=== PATIENT | male | born 1945 | race Caucasian/White ===

== ENCOUNTER → 2016-11-06 | Outpatient (CLI) | payer BC ==
[~2016-11-06] MED LIST: ASCO10003 PO; ASPI-461 PO; ATOR-24 PO; CELE1CAP30 PO; CHOL20009 PO; CHOL4POW4 PO; CHOL4POW6 PO; CLB/200 PO; CRD2 PO; CZR50 PO; GLC/500 PO; INSDGIPEN SC; INSU-698 SC; KRIL1000 PO; LOSA50TA6 PO; LPT/40 PO; METO50TA7 PO; MULTTAB58 PO; OMEG12006 PO; PRD20 PO; PRT40 PO; TPRSR/50 PO; VITA400C3 PO; VITA80005 PO; VTME400 PO; XRL20 PO
--- NOTE | 2016-11-06 18:32 | DIAGNOSTIC IMAGING REPORT ---
CHEST 2 VIEWS ROUTINE CLINICAL HISTORY: Cough, shortness of breath and chest pain. COMPARISON STUDY: Chest radiograph May 11, 2013 FINDINGS: No pneumothorax or pleural effusion is identified. Mild enlargement of the cardiac silhouette is noted. Diffuse interstitial thickening has developed. A few nodular opacities are noted within the lungs, most evident within the right lower lung. Opacity projects over the lower thoracic spinal lateral projection. IMPRESSION: Interval development of diffuse interstitial thickening with nodular opacities within the right lower lung. The findings are nonspecific but suggest interstitial lung disease. Less likely considerations include an atypical infectious or neoplastic process. A chest CT with contrast is recommended. Electronically signed by: Micky Perales M.D. 11/06/2016 6:31 PM Dictated Date/Time: 11/06/2016 6:27 PM
[2016-11-06 18:58] LABS: BASO % 0.3 %; BASO ABS # 0.05 K/uL (0-0.2); COMPLETE YES; EOS % 1.8 %; HEMATOCRIT 42.7 % (42-52); IG% 0.5 %; LYMPH % 14.9 %; LYMPH ABS # 2.45 K/uL (1.2-3.4); MEAN CELL VOLUME 92.8 fL (80-100); MEAN CORPUSCULAR HEMOGLOBIN 31.7 pg (25-34); MEAN CORPUSCULAR HGB CONC 34.2 g/dl (32-36); MEAN PLATELET VOLUME 9.6 fL (7.4-10.4); MONO % 9.8 %; NEUT % 72.7 %; PLATELET COUNT 422 K/uL (130-400); WHITE BLOOD COUNT 16.47 K/uL (4.8-10.8)
[2016-11-06 19:27] LABS: ALB/GLOB RATIO 0.5 (0.9-2); ALT/SGPT 87 U/L (12-78); AST/SGOT 57 U/L (15-37); BLOOD UREA NITROGEN 40 mg/dl (7-18); BUN/CREATININE RATIO 21.2 (10-20); CALCIUM 11.7 mg/dl (8.5-10.1); CARBON DIOXIDE 25 mmol/L (21-32); CHLORIDE 106 mmol/L (98-107); GLUCOSE 125 mg/dl (70-99); POTASSIUM 4.3 mmol/L (3.5-5.1); SODIUM 143 mmol/L (136-145)
[2016-11-06 19:38] LABS: ALKALINE PHOSPHATASE 142 U/L (45-117); CHOLESTEROL 110 mg/dl (0-200); CHOLESTEROL/HDL RATIO 3.9; HDL CHOLESTEROL 28 mg/dl; LDL CHOLESTEROL CALCULATED 46 mg/dl; TRIGLYCERIDES 179 mg/dl (0-150); VERY LOW DENSITY LIPOPROT CALC 36 mg/dl
[2016-11-07 06:27] LABS: ESTIMATED AVERAGE GLUCOSE 128 mg/dl; HA1C FLAG Normal (Normal)
== END | disposition home or self-care (01) ==
LOC: C.RAD 17:25
PROVIDERS: ATTEND Nurse Practitioner
DX: R53.83 Other fatigue (principal); E07.9 Disorder of thyroid, unspecified; E11.9 Type 2 diabetes mellitus without complications; R91.8 Other nonspecific abnormal finding of lung field

== ENCOUNTER 2016-11-07 15:11 | Inpatient (IN) | payer BC, OTHER ==
[~2016-11-07] VITALS: Ht 172.7 cm; Wt 92.9 kg
[~2016-11-07 15:11] MED LIST changes: -ATOR-24 PO; -CELE1CAP30 PO; -CHOL4POW4 PO; -CRD2 PO; -CZR50 PO; -INSDGIPEN SC; -INSU-698 SC; -KRIL1000 PO; -PRD20 PO; -PRT40 PO; -TPRSR/50 PO; -VITA400C3 PO; -XRL20 PO
[2016-11-07] MEDS ORDERED: SODIUM CHLORIDE 0.9% 1000ML 1,000 ML IV STA (15:28)
[2016-11-07] MEDS ORDERED: LEVAQUIN 750MG / 150ML D5W IV STA (15:28)
[2016-11-07 15:48] LABS: BASO % 0.3 %; BASO ABS # 0.05 K/uL (0-0.2); COMPLETE YES; EOS % 2.1 %; HEMATOCRIT 42.1 % (42-52); IG% 0.7 %; LYMPH % 12.2 %; LYMPH ABS # 1.78 K/uL (1.2-3.4); MEAN CELL VOLUME 93.6 fL (80-100); MEAN CORPUSCULAR HEMOGLOBIN 32.9 pg (25-34); MEAN CORPUSCULAR HGB CONC 35.2 g/dl (32-36); MEAN PLATELET VOLUME 9.4 fL (7.4-10.4); MONO % 8.1 %; NEUT % 76.6 %; PLATELET COUNT 391 K/uL (130-400); WHITE BLOOD COUNT 14.63 K/uL (4.8-10.8)
[2016-11-07 15:57] LABS: INR 1.2 (0.9-1.1); PARTIAL THROMBOPLASTIN RATIO 1.2; PROTHROMBIN TIME (PATIENT) 13.2 SECONDS (9.0-12.0)
--- NOTE | 2016-11-07 15:59 | DIAGNOSTIC IMAGING REPORT ---
SINGLE VIEW CHEST CLINICAL HISTORY: Weakness. Change in mental status. FINDINGS: An AP, portable, upright chest radiograph is compared to study dated 11/06/2016. The examination is degraded by portable technique and patient rotation. The heart is enlarged and there is atherosclerotic calcification of the thoracic and. There is pulmonary vascular congestion. There are bilateral airspace opacities, most confluent at the right lung base. No large pleural effusion or pneumothorax is seen. The skeletal structures are osteopenic. There are healed left-sided rib fractures. Surgical anchors are noted in the left humeral head. IMPRESSION: 1. Cardiomegaly with evidence of congestive failure. 2. There are bilateral airspace opacities, most confluent at the right lung base. This could represent interstitial edema. Correlate clinically for evidence of a superimposed infectious or inflammatory pneumonitis. Electronically signed by: Ion Chauhan M.D. 11/07/2016 3:57 PM Dictated Date/Time: 11/07/2016 3:51 PM
[2016-11-07] MEDS ORDERED: HEPARIN SOD 5000 UNIT/0.5 ML CARP ONE (16:14)
[2016-11-07] MEDS ORDERED: HEPARIN 25000 UNIT/500 ML D5W ONE (16:15)
[2016-11-07 16:20] LABS: ALT/SGPT 93 U/L (12-78); AST/SGOT 53 U/L (15-37); BLOOD UREA NITROGEN 39 mg/dl (7-18); BUN/CREATININE RATIO 28.1 (10-20); CALCIUM 11.7 mg/dl (8.5-10.1); CARBON DIOXIDE 23 mmol/L (21-32); CHLORIDE 109 mmol/L (98-107); GLUCOSE 148 mg/dl (70-99); MAGNESIUM 1.5 mg/dl (1.8-2.4); POTASSIUM 4.4 mmol/L (3.5-5.1); SODIUM 142 mmol/L (136-145)
[2016-11-07 16:23] LABS: ALKALINE PHOSPHATASE 132 U/L (45-117); CKMB/CK RATIO 2.8 (0-3.0)
[2016-11-07] MEDS ORDERED: ATOR-24 PO (16:32)
[2016-11-07] MEDS ORDERED: CELE1CAP30 PO (16:32)
[2016-11-07] MEDS ORDERED: CZR50 PO (16:32)
[2016-11-07] MEDS ORDERED: TPRSR/50 PO (16:32)
[2016-11-07] MEDS ORDERED: CRD2 PO (16:32)
--- NOTE | 2016-11-07 16:33 | History and Physical ---
History & Physical Date & Time of Service: Nov 07, 2016 at 16:08 Chief Complaint: Breathing Problems:Doc Sent To Er Primary Care Physician: Chanelle Gomez C.R.N.P. History of Present Illness Source: patient, family, clinic records, hospital records This patient is a pleasant 71-year-old male that presents the emergency department complaining of a productive cough, shortness of breath and weakness that has been going on for approximately 1 week. The patient contact his primary care physician yesterday. Chest x-ray and blood work were ordered. The patient was called today and told that his blood work was abnormal in addition to his chest x-ray. They advised he come to the emergency department for evaluation. The patient denies any fever or chills. He reports eating and drinking normally over the last several days, however his family says that he does not stay hydrated with water. The patient does have a fairly heavy intake of coffee and alcohol. He denies any nausea or vomiting. No changes in bowel habit. No abdominal pain. The patient did receive a flu and pneumonia vaccine this year Emergency Department workup is still pending. Upon review of clinic records, the patient's creatinine is significantly elevated yesterday at 1.9. His baseline appears to be around 0.9. Elevated BUN is 40. Leukocytosis noted at 14,000. Chest x-ray showed a possible neoplastic versus infiltrative process of the right base. The patient does have a remote history of smoking cigarettes , however he quit 30 years ago. He does still chew tobacco. Past Medical/Surgical History Medical Problems: (1) Arthritis Status: Chronic (2) Diabetes Status: Chronic (3) Heart disease Status: Chronic (4) High cholesterol Status: Chronic (5) Hypertension Status: Chronic (6) Myocardial infarction Status: Resolved and. [place] in 1996 Surgical Problems: (1) S/P shoulder surgery Status: Resolved EtOH abuse Thyroid disorder BPH Family History Cancer Diabetes mellitus Heart disease Hypertension Social History Smoking Status: Former Smoker Smokeless Tobacco Use: Yes Marital Status: Housing status: lives with significant other Occupational Status: retired Multi-Drug Resistant Organisms History of MDRO: No Allergies Coded Allergies: No Known Allergies (Verified , 07/12/15) Home Medications Scheduled Ascorbic Acid (Vitamin C), 1,000 MG PO QAM Aspirin (Aspirin), 81 MG PO QAM Atorvastatin (Lipitor), 40 MG PO QAM Celecoxib (Celecoxib), 200 MG PO QAM Cholecalciferol (Vitamin D), 2,000 INTER.UNIT PO QAM Cholestyramine (Cholestyramine), 4 GM PO QPM Doxazosin Mesylate (Doxazosin Mesylate), 2 MG PO QAM Krill Oil (Krill Oil), 1 CAP PO QAM Losartan Potassium (Losartan Potassium), 50 MG PO QAM Metformin Hcl (Glucophage), 500 MG PO QAM Metoprolol Succinate (Metoprolol Succinate ER), 50 MG PO QAM Multiple Vitamin (Multivitamin), 1 TAB PO QAM Vitamin A (Vitamin A), 8,000 INTER.UNIT PO QAM Vitamin E (Vitamin E 400 Iu), 400 INTER.UNIT PO QAM Review of Systems 10 system review performed and negative unless noted in HPI or below Physical Exam Vital Signs Date Time Temp Pulse Resp B/P Pulse Ox O2 Delivery O2 Flow Rate FiO2 11/07/16 15:38 78 Room Air 11/07/16 15:15 36.5 97 18 107/65 97 Room Air GENERAL: 71-year-old male, appears older than stated age, in moderate respiratory distress, SKIN: The skin was without rashes, warm and dry HEAD: Normocephalic atraumatic. MOUTH: Mucous membranes dry NECK: Supple without nuchal rigidity. No lymphadenopathy. No JVD. HEART: Irregularly irregular. No murmurs or rubs. LUNGS: Crackles at the bases and right mid lung. No wheezing. Positive tachypnea. Saturating at 87% on 4 L of oxygen per nasal cannula. ABDOMEN: Positive bowel sounds x 4.Soft, nontender, without organomegaly. No guarding or rebound tenderness. MUSCULOSKELETAL: No muscle atrophy, erythema, or edema noted. . No tenderness to palpation. Strength 5/5 throughout. NEURO: Patient was alert and oriented to person place and time. No focal neurological deficits. Diagnostics Laboratory Results Results Past 24 Hours Test 11/07/16 15:28 11/07/16 15:40 Range/Units Creatine Kinase MB Ratio 0-3.0 White Blood Count 14.63 4.8-10.8 K/uL Red Blood Count 4.50 4.7-6.1 M/uL Hemoglobin 14.8 14.0-18.0 g/dL Hematocrit 42.1 42-52 % Mean Corpuscular Volume 93.6 80-100 fL Mean Corpuscular Hemoglobin 32.9 25-34 pg Mean Corpuscular Hemoglobin Concent 35.2 32-36 g/dl Platelet Count 391 130-400 K/uL Mean Platelet Volume 9.4 7.4-10.4 fL Neutrophils (%) (Auto) 76.6 % Lymphocytes (%) (Auto) 12.2 % Monocytes (%) (Auto) 8.1 % Eosinophils (%) (Auto) 2.1 % Basophils (%) (Auto) 0.3 % Neutrophils # (Auto) 11.22 1.4-6.5 K/uL Lymphocytes # (Auto) 1.78 1.2-3.4 K/uL Monocytes # (Auto) 1.18 0.11-0.59 K/uL Eosinophils # (Auto) 0.30 0-0.5 K/uL Basophils # (Auto) 0.05 0-0.2 K/uL RDW Standard Deviation 43.9 36.4-46.3 fL RDW Coefficient of Variation 12.8 11.5-14.5 % Immature Granulocyte % (Auto) 0.7 % Immature Granulocyte # (Auto) 0.10 0.00-0.02 K/uL Prothrombin Time 13.2 9.0-12.0 SECONDS Prothromb Time International Ratio 1.2 0.9-1.1 Activated Partial Thromboplast Time 29.9 21.0-31.0 SECONDS Partial Thromboplastin Ratio 1.2 Diagnostic Radiology Patient Name: JOSE E SCHULTZ Unit Number: [id number] Dictated: 11/06/161826 Transcribed: 11/06/161826 Printed Date/Time: [~ rep prt dt]/[~ rep prt tm] [~ rep ct labl] - [~ rep ct ivnm] [facility] [place] [place] [address] Dictated: 11/06/161826 Transcribed: 11/06/161826 Printed Date/Time: [~ rep prt dt]/[~ rep prt tm] [~ rep ct labl] - [~ rep ct ivnm] Patient: JOSE E SCHULTZ Address1: [address] [place] [address] Rec: [id number] Address2: Acct ID: [id number] [facility] Zip: [place] [address] Date: 1945 Sex: M Room/Bed: Ref Phy: Chanelle Gomez, C.R.N.P. SC: ANTOINE Att Phy: Chanelle Gomez, C.R.N.P. Report #: [id number] Rhonda Phy: Chanelle Gomez C.R.N.P. Test: CXR Admit Phy: Domestic Housekeeper: ABBIE Interpreting Phy: Micky Perales MD Diagnosis: R53.83 Ordering Phy: Chanelle Gomez.R.N.P. Service Date: 11/06/16 Admit Date: 11/06/16 MNE: [id number] CONF: DICTATED BY: Micky Perales MD]] CC: Chanelle Gomez C.R.NKamron Endcc: [~ rep ct add3]] CHEST 2 VIEWS ROUTINE CLINICAL HISTORY: Cough, shortness of breath and chest pain. COMPARISON STUDY: Chest radiograph May 11, 2013 FINDINGS: No pneumothorax or pleural effusion is identified. Mild enlargement of the cardiac silhouette is noted. Diffuse interstitial thickening has developed. A few nodular opacities are noted within the lungs, most evident within the right lower lung. Opacity projects over the lower thoracic spinal lateral projection. IMPRESSION: Interval development of diffuse interstitial thickening with nodular opacities within the right lower lung. The findings are nonspecific but suggest interstitial lung disease. Less likely considerations include an atypical infectious or neoplastic process. A chest CT with contrast is recommended. Electronically signed by: Micky Perales M.D. 11/06/2016 6:31 PM Dictated Date/Time: 11/06/2016 6:27 PM The status of this report is Signed. Draft = Not yet reviewed or approved by Radiologist. Signed = Reviewed and approved by Radiologist. <AttendingPhy>Chanelle Gomez C.R.N.P.</AttendingPhy> <FamilyPhy>Chanelle Gomez C.R.N.P.</FamilyPhy> <PrimaryPhy>Chanelle Gomez C.R.N.P.</ PrimaryPhy> <UnitNumber>[id number]</UnitNumber> <VisitNumber>[id number]</ VisitNumber> <PatientName>JOSE E SCHULTZ</PatientName> <DateOfBirth>1945</ DateOfBirth> <Location>ANTOINE</Location> <ServiceDate>11/06/16</ServiceDate> <MNE >ESINDI</MNE> <OrderingPhy>Chanelle GomezN.P.</OrderingPhy> < OrderingPhyMNE>f rep ord dr monae</OrderingPhyMNE> <DictatingPhyMNE>f rep dict dr monae</DictatingPhyMNE> <CCListMNE>f rep ct mnhoney</CCListMNE> <AdmittingPhyMNE>f pt admit dr monae</AdmittingPhyMNE> <AttendingPhyMNE>f pt attend dr monae</ AttendingPhyMNE> <ConsultingPhyMNE>f pt consult dr monae</ConsultingPhyMNE> <FamilyPhyMNE>f pt fam dr monae</FamilyPhyMNE> <OtherPhyMNE>f pt other dr monae</OtherPhyMNE> < PrimaryPhyMNE>f pt prim care dr monae</PrimaryPhyMNE> <ReferringPhyMNE>f pt referring dr monae</ReferringPhyMNE> EKG A fib with RVR T-wave inversions noted in the inferior and lateral leads 111 bpm Impression Assessment and Plan 71-year-old male presents emergency department with a productive cough, shortness of breath and weakness. Chest x-ray performed yesterday shows an infiltrative process of the right base-? Pneumonia versus a neoplastic process. Outpatient labs show acute renal failure. Patient also appears to be in A. fib, which is new Acute respiratory failure with hypoxia-? Pneumonia versus neoplastic process versus possible new PE -Admit to telemetry -NS @ 125 cc/hr -Ideally, would get CT with IV contrast-due to ARF this is not feasible. Will obtain a CT of the chest without contrast -VQ scan in the morning -Prophylactically start heparin drip in case this is a new pulmonary embolus -trend cardiac enzymes -continuous pulse ox -Levaquin 750 mg IV daily-pharm may adjust dose New onset A fib -I would suspect that his heart rate will continue to improve with IV hydration and O2. We'll hold off on any further treatment of the A. fib I will add metoprolol 5 mg IV q 6 hr prn for HR > 120 -heparin gtt as noted above CAD hx [place]-no anginal symptoms. T wave inversion new in lateral leads -continue statin, ASA, B amari, heparin gtt as noted above ARF-likely secondary to dehydration -IV fluids as noted above -Daily PRP -Hold metformin 500 mg daily -Hold losartan 50 mg daily -Hold daily Celebrex Hypertension-BP stable -Continue metoprolol XL 50 mg daily -Other meds as noted above Borderline diabetes -Metformin 500 mg daily on hold -Cover with insulin sliding scale for now -BSG's every 6 hours Heavy EtOH use -Librium 60 mg TID -Monitor for DTs -Ativan 1 mg every 4 hours as needed DVT prophylaxis -Heparin drip -TEDS, SCDs CODE STATUS -LEVEL I FULL CODE Level of Care Telemetry Resuscitation Status FULL RESUSCITATION VTE Prophylaxis Risk Level: Low Given or contraindicated: Other Anticoagulation, T.E.D. Stockings, SCD's Assessment and Plan Attending Addendum: I have seen and examined this patient, have directed their medical care, and agree with the H&P as noted above.
[2016-11-07] MEDS ORDERED: CHOL4POW4 PO (16:38)
[2016-11-07] MEDS ORDERED: KRIL1000 PO (16:38)
[2016-11-07] MEDS ORDERED: VITA400C3 PO (16:39)
[2016-11-07] MEDS ORDERED: METOPROLOL TARTRATE 1 MG/ML VIAL IV PRN (16:45)
[2016-11-07] MEDS ORDERED: ACETAMINOPHEN 325 MG TAB PO PRN (16:45)
[2016-11-07] MEDS ORDERED: ONDANSETRON INJ 2 MG/ML 2 ML VIAL IV PRN (16:45)
[2016-11-07] MEDS ORDERED: ALUMINUM/MAGNESIUM/SIMETH (MAALOX MAX) 30 ML UDC PO PRN (16:45)
[2016-11-07] MEDS ORDERED: MAGNESIUM HYDROXIDE SUSP 30 ML UDC PO PRN (16:45)
[2016-11-07] MEDS ORDERED: POLYETHYLENE (MIRALAX) 17 GM PACK PO PRN (16:45)
[2016-11-07] MEDS ORDERED: NITROGLYCERIN 0.4 MG SL PER TAB CHARGE SL PRN (16:45)
[2016-11-07] MEDS ORDERED: LORAZEPAM 2 MG/ML 1 ML VIAL IV PRN (17:00)
[2016-11-07] MEDS ORDERED: GLUCAGON FOR INJ 1 MG VIAL SQ PRN (17:15)
[2016-11-07] MEDS ORDERED: GLUCOSE 10 TABS/TUBE PO PRN (17:15)
[2016-11-07] MEDS ORDERED: GLUCOSE 40% GEL 15 GM TUBE PO PRN (17:15)
[2016-11-07] MEDS ORDERED: DEXTROSE 50% 50 ML SYR IV PRN (17:15)
--- NOTE | 2016-11-07 17:38 | EMERGENCY ROOM VISIT NOTE ---
History Report prepared by Luis: Diana Monroe Under the Supervision of: Dr. Rubén Pelaez D.O. First contact with patient: 15:19 Chief Complaint: SHORTNESS OF BREATH Stated Complaint: BREATHING PROBLEMS:DOC SENT TO ER History of Present Illness The patient is a 71 year old male who presents to the Emergency Room with complaints of persistent shortness of breath that began one week ago. He currently rates his discomfort as a 5/10 in severity. The patient states for the past week he has had trouble getting around. He notes weakness and shortness of breath. The patient additionally associates a productive cough, noting that he has been bringing up yellow sputum. He states that yesterday he had a chest x-ray and blood work done. The patient states that he was called by his PCP instructing him to come to the emergency department for his elevated renal functions. Source of History: patient Onset: one week ago Position: other (global) Symptom Intensity: 5/10 Quality: other (shortness of breath) Timing: other (persistent) Associated Symptoms: + cough, + weakness Review of Systems See HPI for pertinent positives & negatives. A total of 10 systems reviewed and were otherwise negative. Past Medical & Surgical Medical Problems: (1) Acute respiratory failure with hypoxia (2) Arthritis (3) Diabetes (4) Heart disease (5) High cholesterol (6) Hypertension (7) Myocardial infarction Surgical Problems: (1) S/P shoulder surgery Family History Cancer Diabetes mellitus Heart disease Hypertension Social History Smoking Status: Former Smoker Alcohol Use: occasionally Marital Status: Housing Status: lives with significant other Occupation Status: retired Current/Historical Medications Scheduled Ascorbic Acid (Vitamin C), 1,000 MG PO QAM Aspirin (Aspirin), 81 MG PO QAM Atorvastatin (Lipitor), 40 MG PO QAM Celecoxib (Celecoxib), 200 MG PO QAM Cholecalciferol (Vitamin D), 2,000 INTER.UNIT PO QAM Cholestyramine (Cholestyramine), 4 GM PO QPM Doxazosin Mesylate (Doxazosin Mesylate), 2 MG PO QAM Krill Oil (Krill Oil), 1 CAP PO QAM Losartan Potassium (Losartan Potassium), 50 MG PO QAM Metformin Hcl (Glucophage), 500 MG PO QAM Metoprolol Succinate (Metoprolol Succinate ER), 50 MG PO QAM Multiple Vitamin (Multivitamin), 1 TAB PO QAM Vitamin A (Vitamin A), 8,000 INTER.UNIT PO QAM Vitamin E (Vitamin E 400 Iu), 400 INTER.UNIT PO QAM Allergies Coded Allergies: No Known Allergies (Verified , 07/12/15) Physical Exam Vital Signs Date Time Temp Pulse Resp B/P Pulse Ox O2 Delivery O2 Flow Rate FiO2 11/07/16 16:28 94 20 98/64 91 Mask 4.0 11/07/16 16:10 96 11/07/16 15:40 88 Nasal Cannula 5.0 11/07/16 15:38 78 Room Air 11/07/16 15:15 36.5 97 18 107/65 97 Room Air Physical Exam CONSTITUTIONAL/VITAL SIGNS: Reviewed / noted above. GENERAL: Non-toxic in appearance. INTEGUMENTARY: Warm, dry, and [place]. HEAD: Normocephalic. EYES: without scleral icterus or trauma. ENT/OROPHARYNX: clear and moist. LYMPHADENOPATHY/NECK: Is supple without lymphadenopathy or meningismus. RESPIRATORY: Tachypneic, moist sounding breath sounds, but symmetric. CARDIOVASCULAR: Regular rate and rhythm. GI/ABDOMEN: Soft and nontender. No organomegaly or pulsatile mass. No rebound or guarding. Normal bowel sounds. EXTREMITIES: Warm and well perfused. BACK: No CVA tenderness. NEUROLOGICAL: Intact without focal deficits. PSYCHIATRIC: normal affect. MUSCULOSKELETAL: Normally developed with good muscle tone. Medical Decision & Procedures ER Provider Diagnostic Interpretation: X ray results and stated below per my interpretation and radiology interpretation. SINGLE VIEW CHEST CLINICAL HISTORY: Weakness. Change in mental status. FINDINGS: An AP, portable, upright chest radiograph is compared to study dated 11/06/2016. The examination is degraded by portable technique and patient rotation. The heart is enlarged and there is atherosclerotic calcification of the thoracic and. There is pulmonary vascular congestion. There are bilateral airspace opacities, most confluent at the right lung base. No large pleural effusion or pneumothorax is seen. The skeletal structures are osteopenic. There are healed left-sided rib fractures. Surgical anchors are noted in the left humeral head. IMPRESSION: 1. Cardiomegaly with evidence of congestive failure. 2. There are bilateral airspace opacities, most confluent at the right lung base. This could represent interstitial edema. Correlate clinically for evidence of a superimposed infectious or inflammatory pneumonitis. Electronically signed by: Ion Chauhan M.D. 11/07/2016 3:57 PM Dictated Date/Time: 11/07/2016 3:51 PM Laboratory Results 11/07/16 15:40 Red Blood Count 4.50, Mean Corpuscular Volume 93.6, Mean Corpuscular Hemoglobin 32.9, Mean Corpuscular Hemoglobin Concent 35.2, Mean Platelet Volume 9.4, Neutrophils (%) (Auto) 76.6, Lymphocytes (%) (Auto) 12.2, Monocytes (%) (Auto) 8.1, Eosinophils (%) (Auto) 2.1, Basophils (%) (Auto) 0.3, Neutrophils # (Auto) 11.22, Lymphocytes # (Auto) 1.78, Monocytes # (Auto) 1.18, Eosinophils # (Auto) 0.30, Basophils # (Auto) 0.05 11/07/16 15:40 Test 11/07/16 15:40 White Blood Count 14.63 K/uL (4.8-10.8) Red Blood Count 4.50 M/uL (4.7-6.1) Hemoglobin 14.8 g/dL (14.0-18.0) Hematocrit 42.1 % (42-52) Mean Corpuscular Volume 93.6 fL (80-100) Mean Corpuscular Hemoglobin 32.9 pg (25-34) Mean Corpuscular Hemoglobin Concent 35.2 g/dl (32-36) Platelet Count 391 K/uL (130-400) Mean Platelet Volume 9.4 fL (7.4-10.4) Neutrophils (%) (Auto) 76.6 % Lymphocytes (%) (Auto) 12.2 % Monocytes (%) (Auto) 8.1 % Eosinophils (%) (Auto) 2.1 % Basophils (%) (Auto) 0.3 % Neutrophils # (Auto) 11.22 K/uL (1.4-6.5) Lymphocytes # (Auto) 1.78 K/uL (1.2-3.4) Monocytes # (Auto) 1.18 K/uL (0.11-0.59) Eosinophils # (Auto) 0.30 K/uL (0-0.5) Basophils # (Auto) 0.05 K/uL (0-0.2) RDW Standard Deviation 43.9 fL (36.4-46.3) RDW Coefficient of Variation 12.8 % (11.5-14.5) Immature Granulocyte % (Auto) 0.7 % Immature Granulocyte # (Auto) 0.10 K/uL (0.00-0.02) Prothrombin Time 13.2 SECONDS (9.0-12.0) Prothromb Time International Ratio 1.2 (0.9-1.1) Activated Partial Thromboplast Time 29.9 SECONDS (21.0-31.0) Partial Thromboplastin Ratio 1.2 Anion Gap 10.0 mmol/L (3-11) Est Creatinine Clear Calc Drug Dose 52.9 ml/min Estimated GFR () 57.4 Estimated GFR (Non- 49.5 BUN/Creatinine Ratio 28.1 (10-20) Calcium Level 11.7 mg/dl (8.5-10.1) Magnesium Level 1.5 mg/dl (1.8-2.4) Total Bilirubin 0.4 mg/dl (0.2-1) Direct Bilirubin 0.1 mg/dl (0-0.2) Aspartate Amino Transf (AST/SGOT) 53 U/L (15-37) Alanine Aminotransferase (ALT/SGPT) 93 U/L (12-78) Alkaline Phosphatase 132 U/L (45-117) Total Creatine Kinase 64 U/L (39-308) Creatine Kinase MB 1.8 ng/ml (0.5-3.6) Creatine Kinase MB Ratio 2.8 (0-3.0) Troponin I < 0.015 ng/ml (0-0.045) Total Protein 7.7 gm/dl (6.4-8.2) Albumin 2.5 gm/dl (3.4-5.0) Lipase 173 U/L (73-393) Laboratory results as stated above per my review. Medications Administered Medications (Trade) Dose Ordered Sig/Raudel Route Start Time Stop Time Status Last Admin Dose Admin Sodium Chloride (Nss 1000ml) 1,000 ml @ 999 mls/hr Q1H1M STAT IV 11/07/16 15:28 11/07/16 16:28 DC 11/07/16 15:45 999 MLS/HR Levofloxacin (Levaquin / D5W) 750 mg NOW STAT IV 11/07/16 15:28 11/07/16 15:30 DC 11/07/16 16:06 750 MG Heparin Sodium (Porcine) (Heparin Sq 5000 Unit/0.5ml) 10,000 unit STK-MED ONCE .ROUTE 11/07/16 16:14 11/07/16 16:16 DC 11/07/16 16:32 6,000 UNIT Heparin Sodium/ Dextrose (Heparin 25,000 Unit/500ml D5W) 25,000 unit STK-MED ONCE .ROUTE 11/07/16 16:15 11/07/16 16:16 DC 11/07/16 16:15 25,000 UNIT ECG Indication: SOB/dyspnea Rate (beats per minute): 111 Rhythm: atrial fibrillation Findings: no acute ischemic change, no ectopy ED Course 1521: Previous medical records were reviewed. The patient was evaluated in room C10. A complete history and physical examination was performed. I discussed the lab results and chest x-ray findings with him. I discussed the set treatment plan. He verbalized complete understanding and agreement. He will be evaluated for further treatment. 1528: Ordered Levofloxacin 750 mg IV, Sodium Chloride 1000 ml @ 999 mls/hr IV. 1536: I discussed the patients case with PREMA Denise. He is going to evaluate the patient for further treatment. 1548: I rediscussed the patients case with PREMA Denise. 1551: Ordered Heparin Sodium/Dextrose 1 ea NA. Medical Decision Differential includes acute coronary syndrome, myocardial infarction, CVA, TIA, anemia, infection, pneumonia, UTI, pyelonephritis, poor nutrition, dehydration, electrolyte disturbance,hypoglycemia. This is a 71-year-old male who presents to the ED with a chief complaint of shortness of breath. He also reports a cough productive of a yellow sputum for the past week. The patient has been increasingly weak over the past week as well. He had outpatient blood work and a chest x-ray yesterday that suggested either an atypical pneumonia or a neoplastic process and a CT scan with IV contrast was recommended. His white blood cell count yesterday was 16.4. His BUN was 40 and his creatinine was 1.9. He also had some slight elevation of his liver function tests. The patient was documented as having saturations 97% on room air in triage but his room air saturations were 78% in the emergency department room. The patient was found to have atrial fibrillation at a rate of 110. This is new onset. He denies any history of such. His BUN is 39 and his creatinine is 1.4. Calcium was elevated 11.7. Troponin is negative. Chest x-ray reveals about the same as yesterday. The patient was started on IV heparin as well as IV Levaquin. He was given a liter of normal saline IV. I spoke with the hospitalist, who will see the patient for further inpatient care and evaluation. Consults Time Called: [phone] Consulting Physician: PREMA Denise Returned Call: [phone] I discussed the patients case with PREMA Denise. He is going to evaluate the patient for further treatment. Impression Primary Impression: Pneumonia Additional Impressions: New onset atrial fibrillation Hypoxia Critical Care I have personally 35 minutes of critical care time in the direct management of this patient. This includes bedside care, interpretation of diagnostic studies , and testing, discussion with consultants, patient, and family members, and other required patient management activities. Scribe Attestation The scribe's documentation has been prepared under my direction and personally reviewed by me in its entirety. I confirm that the note above accurately reflects all work, treatment, procedures, and medical decision making performed by me. Departure Information Dispostion Being Evaluated By Hospitalist Referrals Chanelle Gomez, C.R.N.P. (PCP) Problem Qualifiers
[2016-11-07 18:30] VITALS: BP 125/87; PULSE 88; TEMP 36.5; O2SAT 92; BMI 31.5
--- NOTE | 2016-11-07 18:31 | DIAGNOSTIC IMAGING REPORT ---
CT OF THE CHEST WITHOUT IV CONTRAST CLINICAL HISTORY: Abnormal chest x-ray. Bilateral airspace opacities. COMPARISON STUDY: Chest x-ray dated 11/07/2016 CT DOSE: 501.10 mGycm TECHNIQUE: CT of the thorax was performed from the thoracic inlet to the lung bases. Images are reviewed in the axial, sagittal, and coronal planes. IV contrast was not administered for this examination. FINDINGS: Thyroid: Imaged portions of the thyroid gland are normal in appearance. Thoracic aorta: The thoracic aorta is normal in course and caliber, noting standard 3 vessel arch anatomy. Heart: The heart is mildly enlarged. There are coronary artery calcifications present. Lungs and pleural spaces: There are extensive bilateral pulmonary airspace opacities with a lower lung zone and slight peripheral distribution. The findings could represent atypical edema, or an infectious/inflammatory process. There are several nodular opacities, the most prominent is located within the right upper lobe on image #[id number] measuring 1 cm. There is also a 7 mm lingular nodule as visualized in image #[id number]. There are no significant pleural effusions. Mediastinum: There is a 1 cm right paratracheal lymph node the upper limits of normal in size. There is a mildly enlarged. Tracheal lymph node measuring 11 mm in short axis. There is a mildly enlarged subcarinal lymph node measuring 13 mm. Leora: Mildly enlarged hilar lymph nodes are suspected although evaluation is limited given the noncontrast nature the study Axilla: Clear. Upper abdomen: Partially visualized upper abdominal viscera is within normal limits. Skeletal structures: There are no lytic or blastic osseous lesions. IMPRESSION: 1. Extensive mixed interstitial and groundglass pulmonary opacities. The appearance is nonspecific. An infectious/inflammatory process is favored over atypical edema. In addition there are scattered subcentimeter nodules. 2. Mildly enlarged mediastinal and hilar lymph nodes 3. Coronary artery calcifications 4. No significant pleural effusions Electronically signed by: John Katz M.D. 11/07/2016 6:29 PM Dictated Date/Time: 11/07/2016 6:23 PM
[2016-11-07 20:00] VITALS: O2SAT 92
[2016-11-07 20:20] LABS: INFLUENZA A PCR Neg for Influ A (NEG); INFLUENZA B PCR Neg for Influ B (NEG)
[2016-11-07] MEDS ORDERED: LEVOFLOXACIN CONSULT ACTIVE PRN (21:45)
--- NOTE | 2016-11-07 22:01 | DIAGNOSTIC IMAGING REPORT ---
NUCLEAR MEDICINE PULMONARY VENTILATION/PERFUSION SCAN CLINICAL HISTORY: Hypoxia and new onset atrial fibrillation. COMPARISON STUDY: Chest x-ray dated 11/07/2016, chest CT dated 11/07/2016 FINDINGS: The patient was ventilated utilizing 32.7 mCi of technetium 99m DTPA aerosol. The patient was perfused utilizing 6.4 mCi of technetium 99m MAA. The perfusion study is heterogeneous without evidence of large focal perfusion defect. Ventilation study is limited with central deposition of the aerosol. There is swallowed activity with gastric activity and esophageal activity. Given the limited aerosol study is difficult to interpret this examination. However I would place this study in the low probability of acute pulmonary embolus category (less than 10% probability) IMPRESSION: 1. Significantly limited aerosol study 2. Difficult study to interpret, but felt to be in the low probability category. Electronically signed by: John Kazt M.D. 11/07/2016 9:59 PM Dictated Date/Time: 11/07/2016 9:55 PM
--- NOTE | 2016-11-07 22:02 | DIAGNOSTIC IMAGING REPORT ---
ULTRASOUND VENOUS DOPPLER LWR EXT BILA CLINICAL HISTORY: Difficulty breathing. Possible pulmonary embolism. NEW ONSET ATRIAL FIBRILLATION COMPARISON STUDY: No previous studies for comparison. FINDINGS: Real-time and color flow Doppler imaging were performed. Flow was seen within the femoral, popliteal and calf veins with no intraluminal thrombus demonstrated. The saphenous vein is patent. IMPRESSION: No evidence of lower extremity DVT. Electronically signed by: John Katz M.D. 11/07/2016 10:00 PM Dictated Date/Time: 11/07/2016 9:59 PM
[2016-11-07] MEDS: CHLORDIAZEPOXIDE 25 MG CAP PO SCH (22:10)
[2016-11-07] MEDS: ALBUMIN HUMAN 25% 12.5 GM/50 ML VIAL IV SCH ×2 (22:11→22:26)
[2016-11-07] MEDS: INSULIN ASPART 100 UNITS/ML 3 ML PEN SC SCH (22:15)
[2016-11-07] MEDS: SODIUM CHLORIDE 0.9% 1000ML 1,000 ML IV SCH (22:38)
[2016-11-07 23:01] LABS: PARTIAL THROMBOPLASTIN RATIO 1.9
[2016-11-07 23:48] VITALS: BP 121/73; PULSE 85; TEMP 36.6; O2SAT 94
[2016-11-08] VITALS (15 sets, daily range): BP systolic 88–111; BP diastolic 49–72; PULSE 69–92; TEMP 36.4–36.8; O2SAT 88–95
[2016-11-08] MEDS ORDERED: FUROSEMIDE 40 MG/4 ML VIAL ONE (04:15)
[2016-11-08] MEDS ORDERED: FUROSEMIDE INJ 20 MG in SYRINGE 0 ML IV SCH (05:00)
[2016-11-08 05:40] LABS: URINE APPEARANCE CLEAR (CLEAR); URINE BILIRUBIN NEG (NEG); URINE COLOR YELLOW; URINE NITRITE NEG (NEG); URINE SPECIFIC GRAVITY 1.012 (1.000-1.030); UROBILINOGEN NEG (NEG); ZZUR CULT IF INDIC CLEAN CATCH NO
[2016-11-08 05:43] LABS: MANUAL MICROSCOPIC REQUIRED? NO; REVIEW REQ? NO
[2016-11-08 06:34] LABS: BASO % 0.4 %; BASO ABS # 0.05 K/uL (0-0.2); COMPLETE YES; EOS % 3.5 %; IG% 0.7 %; LYMPH ABS # 2.44 K/uL (1.2-3.4); MEAN CELL VOLUME 93.5 fL (80-100); MEAN CORPUSCULAR HEMOGLOBIN 31.8 pg (25-34); MEAN PLATELET VOLUME 9.6 fL (7.4-10.4); MONO % 8.5 %; NEUT % 68.9 %; PLATELET COUNT 376 K/uL (130-400); RED BLOOD COUNT 4.28 M/uL (4.7-6.1); WHITE BLOOD COUNT 13.55 K/uL (4.8-10.8)
[2016-11-08 06:44] LABS: PARTIAL THROMBOPLASTIN RATIO 1.4
[2016-11-08 07:11] LABS: BUN/CREATININE RATIO 29.9 (10-20); CALCIUM 10.9 mg/dl (8.5-10.1); MAGNESIUM 1.3 mg/dl (1.8-2.4)
[2016-11-08] MEDS: INSULIN ASPART 100 UNITS/ML 3 ML PEN SC SCH ×4 (07:54→21:27)
[2016-11-08] MEDS ORDERED: HEPARIN IV BOLUS 6,000 UNIT in SYRINGE 0 ML IV ONE (08:00)
[2016-11-08] MEDS: HEPARIN 25,000 UNIT/500ML D5W 500 ML IV PRN (08:47)
[2016-11-08] MEDS: SODIUM CHLORIDE 0.9% 1000ML 1,000 ML IV SCH (08:57)
[2016-11-08] MEDS: ATORVASTATIN 40 MG TAB PO SCH (08:58)
[2016-11-08] MEDS: ASPIRIN 81 MG ECTAB PO SCH (08:59)
[2016-11-08] MEDS: METOPROLOL SUCC 50MG EXT REL TAB PO SCH (08:59)
[2016-11-08] MEDS: CHLORDIAZEPOXIDE 25 MG CAP PO SCH (09:00)
[2016-11-08] MEDS: DOXAZosin MESYLATE TAB 2 MG TAB PO SCH (09:00)
[2016-11-08 09:22] LABS: VEN BLD GAS O2 SATURATION 77.6 %; VEN BLOOD GAS BASE EXCESS 2.6 mmol/L
[2016-11-08] MEDS: FoLIC ACID INJ 1 MG in SYRINGE 9.8 ML IV SCH (09:32)
[2016-11-08] MEDS: MAGNESIUM SULFATE 1GM / D5W 1 GM in PREMIXED IN D5W 100 ML IV SCH ×3 (09:32→14:27)
[2016-11-08 09:50] LABS: CKMB/CK RATIO 3.1 (0-3.0)
[2016-11-08] MEDS ORDERED: LORAZEPAM 1 MG TAB PO PRN (10:15)
--- NOTE | 2016-11-08 10:21 | DIAGNOSTIC IMAGING REPORT ---
SINGLE VIEW CHEST CLINICAL HISTORY: CHF. Dyspnea. FINDINGS: An AP, portable, upright chest radiograph is compared to chest x-ray and chest CT dated 11/07/2016. The examination is degraded by portable technique, apical lordotic positioning, and patient rotation. The heart is enlarged and there is atherosclerotic calcification of the thoracic aorta. There is pulmonary vascular congestion. Multifocal bilateral airspace opacities are again noted. This is most confluent at the right lung base. No large pleural effusion or pneumothorax is seen. The skeletal structures are osteopenic. There are healed left-sided rib fractures. Surgical anchors are noted in the left humeral head. IMPRESSION: 1. Cardiomegaly with evidence of congestive failure. 2. Unchanged appearance of diffuse bilateral airspace opacities, most confluent at the right lung base. Differential considerations remain pulmonary edema versus a superimposed infectious or inflammatory pneumonitis. Electronically signed by: Ion Cahuhan M.D. 11/08/2016 10:19 AM Dictated Date/Time: 11/08/2016 10:17 AM
[2016-11-08] MEDS ORDERED: PIPERACILL/TAZOBAC CONSULT ACTIVE PRN (10:45)
[2016-11-08] MEDS: THIAMINE HCL INJ 200 MG in SODIUM CHLORIDE 0.9% 50ML 50 ML IV SCH ×2 (10:48→21:26)
[2016-11-08] MEDS ORDERED: PIPERACILL/TAZOBAC IV 3.375 GM in DEXTROSE 5% 100ML IV ONE (11:00)
[2016-11-08] MEDS ORDERED: GABAPENTIN 600 MG TAB PO ONE (11:00)
--- NOTE | 2016-11-08 11:05 | Progress Note ---
Subjective Date of Service: Nov 08, 2016. Subjective Pt evaluation today including: conversation w/ patient, physical exam, chart review, lab review, review of studies (cxr, CT chest, EKG, dopplers, v/q ), conversation w/ retirement sales consultant (critical care, pulmonary ), review of inpatient medication list Pain: denies chest pain PO Intake: essentially npo Voiding: no voiding problems Overnight - continues with significant O2 requirement despite facemask O2. He is dyspneic at rest but not orthopneic. Denies fevers. Has been sick x 1 week only; denies chronic lung issues; no tobacco in 20 years. Smoked 20 years previously. Continues to chew tobacco. +etoh - 4 beers and 4 shots daily (minimum) - EVERY DAY. Denies h/o withdrawal or DTs. Denies h/o cirrhosis. Denies HIV risk factors, but does have tattoos. No recent travel, sick contacts, birds at his house, etc. Denies any recent vomiting or aspiration event. Problem List Medical Problems: (1) Hypoxia Status: Acute (2) New onset atrial fibrillation Status: Acute (3) Pneumonia Status: Acute Review of Systems Constitutional: + fatigue, No chills, No fever, No sweats Respiratory: + cough, + dyspnea at rest, No hemoptysis, No sputum Cardiac: No PND, No chest pain, No edema, No orthopnea Abdomen: No diarrhea, No nausea, No pain, No vomiting Musculoskeletal: No joint pain Objective Vital Signs Date Time Temp Pulse Resp B/P Pulse Ox O2 Delivery O2 Flow Rate FiO2 11/08/16 08:55 89 36 90/58 89 Nasal Cannula 6.0 11/08/16 07:58 36.4 84 23 95/50 92 Mask 8.0 11/08/16 04:00 Mask 6.0 11/08/16 03:35 36.8 86 38 94/49 95 Mask 6.0 11/08/16 00:01 94 Nasal Cannula 5.0 11/07/16 23:48 36.6 85 20 121/73 94 Nasal Cannula 5.0 11/07/16 20:00 92 Mask 7.0 11/07/16 18:30 36.5 88 20 125/87 92 Mask 7.0 11/07/16 17:41 90 20 97/71 90 Mask 4.0 1/20/17 16:28 94 20 98/64 91 Mask 4.0 11/07/16 16:10 96 11/07/16 15:40 88 Nasal Cannula 5.0 11/07/16 15:38 78 Room Air 11/07/16 15:15 36.5 97 18 107/65 97 Room Air Physical Exam General Appearance: + moderate distress (tachypneic, subtle accessory muscle use) ENT: + pertinent finding (MM dry, no thrush ) Neck: no JVD Respiratory/Chest: + respiratory distress, + decreased breath sounds, + accessory muscle use, + rales (fine, both bases - extending 1/[address] way up the back) , + wheezing (scant, end-exp) Cardiovascular: no gallop, no murmur, + irregularly irregular Abdomen: normal bowel sounds, non tender, soft, no organomegaly Extremities: no pedal edema Neurologic/Psychiatric: alert, oriented x 3, + pertinent finding (no tremors or signs of withdrawal) Skin: + pertinent finding (tattoos on arms) Laboratory Results Last 24 Hours Test 11/07/16 15:40 11/07/16 18:30 11/07/16 22:04 11/07/16 22:25 White Blood Count 14.63 K/uL Red Blood Count 4.50 M/uL Hemoglobin 14.8 g/dL Hematocrit 42.1 % Mean Corpuscular Volume 93.6 fL Mean Corpuscular Hemoglobin 32.9 pg Mean Corpuscular Hemoglobin Concent 35.2 g/dl Platelet Count 391 K/uL Mean Platelet Volume 9.4 fL Neutrophils (%) (Auto) 76.6 % Lymphocytes (%) (Auto) 12.2 % Monocytes (%) (Auto) 8.1 % Eosinophils (%) (Auto) 2.1 % Basophils (%) (Auto) 0.3 % Neutrophils # (Auto) 11.22 K/uL Lymphocytes # (Auto) 1.78 K/uL Monocytes # (Auto) 1.18 K/uL Eosinophils # (Auto) 0.30 K/uL Basophils # (Auto) 0.05 K/uL RDW Standard Deviation 43.9 fL RDW Coefficient of Variation 12.8 % Immature Granulocyte % (Auto) 0.7 % Immature Granulocyte # (Auto) 0.10 K/uL Prothrombin Time 13.2 SECONDS Prothromb Time International Ratio 1.2 Activated Partial Thromboplast Time 29.9 SECONDS 49.7 SECONDS Partial Thromboplastin Ratio 1.2 1.9 Sodium Level 142 mmol/L Potassium Level 4.4 mmol/L Chloride Level 109 mmol/L Carbon Dioxide Level 23 mmol/L Anion Gap 10.0 mmol/L Blood Urea Nitrogen 39 mg/dl Creatinine 1.40 mg/dl Est Creatinine Clear Calc Drug Dose 52.9 ml/min Estimated GFR () 57.4 Estimated GFR (Non- 49.5 BUN/Creatinine Ratio 28.1 Random Glucose 148 mg/dl Calcium Level 11.7 mg/dl Magnesium Level 1.5 mg/dl Total Bilirubin 0.4 mg/dl Direct Bilirubin 0.1 mg/dl Aspartate Amino Transf (AST/SGOT) 53 U/L Alanine Aminotransferase (ALT/SGPT) 93 U/L Alkaline Phosphatase 132 U/L Total Creatine Kinase 64 U/L Creatine Kinase MB 1.8 ng/ml Creatine Kinase MB Ratio 2.8 Troponin I < 0.015 ng/ml Total Protein 7.7 gm/dl Albumin 2.5 gm/dl Lipase 173 U/L Influenza Type A (RT-PCR) Neg for Influ A Influenza Type B (RT-PCR) Neg for Influ B Bedside Glucose 115 mg/dl Test 11/08/16 04:54 11/08/16 05:50 11/08/16 07:05 11/08/16 09:06 Urine Color YELLOW Urine Appearance CLEAR Urine pH 5.0 Urine Specific Gilby 1.012 Urine Protein NEG Urine Glucose (UA) NEG Urine Ketones NEG Urine Occult Blood NEG Urine Nitrite NEG Urine Bilirubin NEG Urine Urobilinogen NEG Urine Leukocyte Esterase NEG Urine WBC (Auto) 1-5 /hpf Urine RBC (Auto) 0-4 /hpf Urine Hyaline Casts (Auto) 1-5 /lpf Urine Epithelial Cells (Auto) 5-10 /lpf Urine Bacteria (Auto) NEG White Blood Count 13.55 K/uL Red Blood Count 4.28 M/uL Hemoglobin 13.6 g/dL Hematocrit 40.0 % Mean Corpuscular Volume 93.5 fL Mean Corpuscular Hemoglobin 31.8 pg Mean Corpuscular Hemoglobin Concent 34.0 g/dl Platelet Count 376 K/uL Mean Platelet Volume 9.6 fL Neutrophils (%) (Auto) 68.9 % Lymphocytes (%) (Auto) 18.0 % Monocytes (%) (Auto) 8.5 % Eosinophils (%) (Auto) 3.5 % Basophils (%) (Auto) 0.4 % Neutrophils # (Auto) 9.34 K/uL Lymphocytes # (Auto) 2.44 K/uL Monocytes # (Auto) 1.15 K/uL Eosinophils # (Auto) 0.48 K/uL Basophils # (Auto) 0.05 K/uL RDW Standard Deviation 43.3 fL RDW Coefficient of Variation 12.8 % Immature Granulocyte % (Auto) 0.7 % Immature Granulocyte # (Auto) 0.09 K/uL Activated Partial Thromboplast Time 35.2 SECONDS Partial Thromboplastin Ratio 1.4 Sodium Level 141 mmol/L Potassium Level 4.0 mmol/L Chloride Level 107 mmol/L Carbon Dioxide Level 23 mmol/L Anion Gap 11.0 mmol/L Blood Urea Nitrogen 30 mg/dl Creatinine 1.00 mg/dl Est Creatinine Clear Calc Drug Dose 73.5 ml/min Estimated GFR () 86.2 Estimated GFR (Non- 74.3 BUN/Creatinine Ratio 29.9 Random Glucose 96 mg/dl Calcium Level 10.9 mg/dl Magnesium Level 1.3 mg/dl Bedside Glucose 93 mg/dl Venous Blood pH 7.47 Venous Blood Partial Pressure CO2 36 mmHg Venous Blood Partial Pressure O2 41 mmHg Venous Blood HCO3 26 mmol/L Venous Blood Oxygen Saturation 77.6 % Venous Blood Base Excess 2.6 mmol/L Total Creatine Kinase 52 U/L Creatine Kinase MB 1.6 ng/ml Creatine Kinase MB Ratio 3.1 Troponin I < 0.015 ng/ml Assessment and Plan 71yo female with: 1. acute hypoxic respiratory failure - likely infectious, etiology uncertain. I cannot rule out element of CHF at this time (diuresed about 1000cc after lasix this AM). Could be early ARDS. Query whether he could have aspirated during a drinking binge. Flu PCR negative. Send HIV, mycoplasma titers, urine for legionella antigen. Consent (verbal) for HIV testing obtained from patient. Add zosyn to the levaquin. MRSA swab; if + then add vanco for coverage. Send sputum cx if able to produce sputum. Change facemask to High-flow NC. Consult pulmonary, Dr. Prajapati - care discussed thoroughly with him this AM. Consult critical care, Dr. Duran, and plan to transfer him to ICU due to high risk of needing intubation/mech vent. Pulmonary toilet. 2. ?acute CHF - echo ordered. Hold additional IVF. Hold additional lasix until echo, repeat labs, etc are complete and we can reassess clinically. 3. new-onset a. fib - remains on heparin drip (started yesterday at admission) . Rates controlled with BB. Low mag could be contributing. ECHO ordered. 4. abnormal LFTs - low albumin, mildly elevated INR, abnormal LFTs - all in the setting of chronic etoh suggest cirrhosis. Check HepB/C titers. Will ultimately need dedicated u/s of liver; defer for now. 5. suspected sepsis - 2nd to #1 - check lactate. Broaden antibiotics. Unfortunately no blood cultures were sent yesterday. I don't know if sending them today would be helpful. 6. acute kidney injury - improved this am. Likely 2nd to #1 + #5. Repeat BMP at 1330 to ensure stability of creatinine following lasix. 7. alcoholism - high risk of withdrawal. Start alcohol withdrawal protocol with gabapentin + ativan. Stop librium. Add thiamine 200mg IV q12h. Add folic acid 1mg IV daily. 8. hypomagnesemia - 2nd to #7 - 3 grams mag sulfate NOW over 6 hours. Repeat level later today. Certainly will contribute to a. fib. 9. h/o CAD - rechecked troponin this am and was negative. 10. h/o T2DM - BSG q6h. Novolog SSI for now. Likely will need lantus/levemir due to steroids. 11. DVT proph - heparin drip. 12. GI proph - PPI. 13. BPH - placing stein; won't be an issue. 14. ?thyroid disorder per records - TSH on 11/04/16 was normal. will update total time 60 minutes including speaking with consultants, increasing pulmonary support, orders, transfer to ICU, etc Continued [facility] stay due to: multiple IV medications needed, other (resp failure )
[2016-11-08] MEDS ORDERED: PANTOprazole SOD 40 MG TAB PO ONE (11:30)
[2016-11-08] MEDS: METHYLPREDNISOLONE IV 60 MG in SYRINGE 0 ML IV SCH ×2 (11:55→17:53)
[2016-11-08 14:57] LABS: PARTIAL THROMBOPLASTIN RATIO 2.7
[2016-11-08 15:04] LABS: BUN/CREATININE RATIO 30.9 (10-20); CALCIUM 10.8 mg/dl (8.5-10.1); CREATININE 0.94 mg/dl (0.60-1.40); POTASSIUM 4.6 mmol/L (3.5-5.1)
[2016-11-08 15:17] LABS: HEPATITIS B AB NEG
[2016-11-08] MEDS: LEVOFLOXACIN / D5W 750 MG in PREMIXED IN D5W 150 ML IV SCH (16:04)
[2016-11-08] MEDS: GABAPENTIN 100 MG CAP PO SCH ×2 (16:04→21:28)
--- NOTE | 2016-11-08 17:29 | Critical Care Consultation ---
Critical Care Consultation Date of Consultation: Nov 08, 2016. Attending Physician: Jose Melendez MD Reason for Consultation: Hypoxic respiratory failure possible ARDS History of Present Illness Patient is a 71-year-old male who presented to the emergency department with a complaint of cough and shortness of breath of abrupt onset. In the emergency department he received a chest x-ray which was concerning for an in full treated process of the right base versus a possible neoplastic process, he was admitted to the hospitalist service for further evaluation. Patient had increasing oxygen requirements and given that is on the chest x-ray there is a concern for ARDS for which we will consult at for further evaluation and management. Past Medical/Surgical History #1 coronary artery disease #2 history of congestive heart failure #3 diabetes mellitus type 2 #4 benign prostatic hypertrophy #5 dyslipidemia #6 smokeless tobacco abuse #7 daily alcohol use (4-6 beers in addition to 4-6 whiskey shots) history of withdrawal symptoms Family History Cancer Diabetes mellitus Heart disease Hypertension Social History Smoking Status: Former Smoker Smokeless Tobacco Use: Yes Marital Status: Housing Status: lives with significant other Occupation Status: retired Allergies Coded Allergies: No Known Allergies (Verified , 07/12/15) Home Medications Scheduled Ascorbic Acid (Vitamin C), 1,000 MG PO QAM Aspirin (Aspirin), 81 MG PO QAM Atorvastatin (Lipitor), 40 MG PO QAM Celecoxib (Celecoxib), 200 MG PO QAM Cholecalciferol (Vitamin D), 2,000 INTER.UNIT PO QAM Cholestyramine (Cholestyramine), 4 GM PO QPM Doxazosin Mesylate (Doxazosin Mesylate), 2 MG PO QAM Krill Oil (Krill Oil), 1 CAP PO QAM Losartan Potassium (Losartan Potassium), 50 MG PO QAM Metformin Hcl (Glucophage), 500 MG PO QAM Metoprolol Succinate (Metoprolol Succinate ER), 50 MG PO QAM Multiple Vitamin (Multivitamin), 1 TAB PO QAM Vitamin A (Vitamin A), 8,000 INTER.UNIT PO QAM Vitamin E (Vitamin E 400 Iu), 400 INTER.UNIT PO QAM Current Inpatient Medications Current Inpatient Medications Medications (Trade) Dose Ordered Sig/Raudel Route Start Time Stop Time Status Last Admin Dose Admin Levofloxacin/Prmx (Levaquin / D5W/ Premixed D5W) 150 ml @ 100 mls/hr Q24H IV 11/08/16 16:00 11/17/16 15:59 11/08/16 16:04 100 MLS/HR Metoprolol Tartrate (Lopressor Iv) 5 mg Q6 PRN IV 11/07/16 16:45 12/07/16 16:44 Acetaminophen (Tylenol Tab) 650 mg Q4H PRN PO 11/07/16 16:45 12/07/16 16:44 Al Hydrox/Mg Hydrox/Simethicone (Maalox Max Susp) 15 ml Q4H PRN PO 11/07/16 16:45 12/07/16 16:44 Magnesium Hydroxide (Milk Of Magnesia Susp) 30 ml Q12H PRN PO 11/07/16 16:45 12/07/16 16:44 Ondansetron HCl (Zofran Inj) 4 mg Q6H PRN IV 11/07/16 16:45 12/07/16 16:44 Nitroglycerin (Nitrostat Tab) 0.4 mg UD PRN SL 11/07/16 16:45 12/07/16 16:44 Polyethylene (Miralax Powder Packet) 17 gm DAILY PRN PO 11/07/16 16:45 12/07/16 16:44 Insulin Aspart (novoLOG ASPART) SLIDING SCALE G... ACHS SC 11/07/16 21:00 12/07/16 20:59 11/08/16 11:54 2 UNITS Aspirin (Ecotrin Tab) 81 mg QAM PO 11/08/16 09:00 12/08/16 08:59 11/08/16 08:59 81 MG Atorvastatin Calcium (Lipitor Tab) 40 mg QAM PO 11/08/16 09:00 12/08/16 08:59 11/08/16 08:58 40 MG Doxazosin Mesylate (Cardura Tab) 2 mg QAM PO 11/08/16 09:00 12/08/16 08:59 Metoprolol Succinate 50 mg 50 mg QAM PO 11/08/16 09:00 12/08/16 08:59 Heparin Sodium/ Dextrose (Heparin 25,000 Unit/500ml D5W) 500 ml @ 35 mls/hr [id number] PRN IV 11/07/16 17:00 12/07/16 16:59 11/08/16 08:47 35 MLS/HR Lorazepam (Ativan Inj) 1 mg Q4H PRN IV 11/07/16 17:00 12/07/16 16:59 Glucose (Glucose 40% Gel) 15-30 GRAMS 15 GRAMS... UD PRN PO 11/07/16 17:15 12/07/16 17:14 Glucose (Glucose Chew Tab) 4-8 Tablets 4 Tabl... UD PRN PO 11/07/16 17:15 12/07/16 17:14 Dextrose (Dextrose 50% 50ML Syringe) 25-50ML OF 50% DW IV FOR... UD PRN IV 11/07/16 17:15 12/07/16 17:14 Glucagon (Glucagon Inj) 1 mg UD PRN SQ 11/07/16 17:15 12/07/16 17:14 Levofloxacin 1 ea 1 ea UD PRN N/A 11/07/16 21:45 12/07/16 21:44 Thiamine HCl 200 mg/Sodium Chloride 52 ml @ 208 mls/hr BID IV 11/08/16 09:00 12/08/16 08:59 11/08/16 10:48 208 MLS/HR Folic Acid/Syringe (Folvite Inj/ Syringe) 10 ml @ 5 mls/min QAM IV 11/08/16 09:00 12/08/16 08:59 11/08/16 09:32 5 MLS/MIN Lorazepam 1 mg 1 mg ONE PRN PO 11/08/16 10:15 12/08/16 10:14 Piperacillin Sod/ Tazobactam Sod 3.375 gm/Dextrose 115 ml @ 28.75 mls/ hr Q8H IV 11/08/16 17:00 11/15/16 16:59 Methylprednisolone Sodium Succinate/ Syringe (Solu-Medrol IV/ Syringe) 0.96 ml @ 1.5 mls/min Q8H IV 11/08/16 11:00 12/08/16 10:29 11/08/16 11:55 1.5 MLS/MIN Gabapentin (Neurontin Cap) 100 mg Q6H PO 11/08/16 16:00 11/08/16 22:01 11/08/16 16:04 100 MG Gabapentin (Neurontin Tab) 600 mg DAILY PO 11/09/16 09:00 11/09/16 09:01 Gabapentin (Neurontin Cap) 400 mg DAILY PO 11/10/16 09:00 11/10/16 09:01 Gabapentin (Neurontin Cap) 200 mg DAILY PO 11/11/16 09:00 11/11/16 09:01 Piperacillin Sod/ Tazobactam Sod (Consult) 1 ea UD PRN N/A 11/08/16 10:45 12/08/16 10:44 Pantoprazole Sodium (Protonix Tab) 40 mg QAM PO 11/09/16 09:00 12/09/16 08:59 Review of Systems Patient denies chest pain, shortness of breath resolved with high flow nasal cannula. Physical Exam Date Time Temp Pulse Resp B/P Pulse Ox O2 Delivery O2 Flow Rate FiO2 11/08/16 16:00 High Flow Oxygen 45.0 70 11/08/16 16:00 36.8 89 19 95/60 95 High Flow Oxygen 45 11/08/16 12:38 36.8 92 30 92/62 93 High Flow Oxygen 50 11/08/16 12:00 93 High Flow Oxygen 45.0 70 11/08/16 10:59 92/62 11/08/16 08:55 89 36 90/58 89 Nasal Cannula 6.0 11/08/16 08:00 92 Mask 8.0 11/08/16 07:58 36.4 84 23 95/50 92 Mask 8.0 11/08/16 04:00 Mask 6.0 11/08/16 03:35 36.8 86 38 94/49 95 Mask 6.0 11/08/16 00:01 94 Nasal Cannula 5.0 11/07/16 23:48 36.6 85 20 121/73 94 Nasal Cannula 5.0 11/07/16 20:00 92 Mask 7.0 11/07/16 18:30 36.5 88 20 125/87 92 Mask 7.0 11/07/16 17:41 90 20 97/71 90 Mask 4.0 General Appearance: well-appearing, WD/WN, no apparent distress Head: normocephalic, atraumatic Eyes: PERRLA, no discharge ENT: normal mouth exam, normal throat exam Neck: normal range of motion, no tenderness, trachea midline Respiratory: rhonchi Cardiovasular: irregular rate Abdomen: non tender, normal bowel sounds, no rebound Genitourinary - Male: external genitalia normal (Peterson in place) Neuro: alert, oriented x 3, normal motor exam, normal sensation, normal gait Laboratory Results Last 24 Hours Test 11/07/16 18:30 11/07/16 22:04 11/07/16 22:25 11/08/16 04:54 Influenza Type A (RT-PCR) Neg for Influ A Influenza Type B (RT-PCR) Neg for Influ B Bedside Glucose 115 mg/dl Activated Partial Thromboplast Time 49.7 SECONDS Partial Thromboplastin Ratio 1.9 Urine Color YELLOW Urine Appearance CLEAR Urine pH 5.0 Urine Specific [place] 1.012 Urine Protein NEG Urine Glucose (UA) NEG Urine Ketones NEG Urine Occult Blood NEG Urine Nitrite NEG Urine Bilirubin NEG Urine Urobilinogen NEG Urine Leukocyte Esterase NEG Urine WBC (Auto) 1-5 /hpf Urine RBC (Auto) 0-4 /hpf Urine Hyaline Casts (Auto) 1-5 /lpf Urine Epithelial Cells (Auto) 5-10 /lpf Urine Bacteria (Auto) NEG Test 11/08/16 05:50 11/08/16 07:05 11/08/16 09:06 11/08/16 11:12 White Blood Count 13.55 K/uL Red Blood Count 4.28 M/uL Hemoglobin 13.6 g/dL Hematocrit 40.0 % Mean Corpuscular Volume 93.5 fL Mean Corpuscular Hemoglobin 31.8 pg Mean Corpuscular Hemoglobin Concent 34.0 g/dl Platelet Count 376 K/uL Mean Platelet Volume 9.6 fL Neutrophils (%) (Auto) 68.9 % Lymphocytes (%) (Auto) 18.0 % Monocytes (%) (Auto) 8.5 % Eosinophils (%) (Auto) 3.5 % Basophils (%) (Auto) 0.4 % Neutrophils # (Auto) 9.34 K/uL Lymphocytes # (Auto) 2.44 K/uL Monocytes # (Auto) 1.15 K/uL Eosinophils # (Auto) 0.48 K/uL Basophils # (Auto) 0.05 K/uL RDW Standard Deviation 43.3 fL RDW Coefficient of Variation 12.8 % Immature Granulocyte % (Auto) 0.7 % Immature Granulocyte # (Auto) 0.09 K/uL Activated Partial Thromboplast Time 35.2 SECONDS Partial Thromboplastin Ratio 1.4 Sodium Level 141 mmol/L Potassium Level 4.0 mmol/L Chloride Level 107 mmol/L Carbon Dioxide Level 23 mmol/L Anion Gap 11.0 mmol/L Blood Urea Nitrogen 30 mg/dl Creatinine 1.00 mg/dl Est Creatinine Clear Calc Drug Dose 73.5 ml/min Estimated GFR () 86.2 Estimated GFR (Non- 74.3 BUN/Creatinine Ratio 29.9 Random Glucose 96 mg/dl Calcium Level 10.9 mg/dl Magnesium Level 1.3 mg/dl Bedside Glucose 93 mg/dl Venous Blood pH 7.47 Venous Blood Partial Pressure CO2 36 mmHg Venous Blood Partial Pressure O2 41 mmHg Venous Blood HCO3 26 mmol/L Venous Blood Oxygen Saturation 77.6 % Venous Blood Base Excess 2.6 mmol/L Total Creatine Kinase 52 U/L Creatine Kinase MB 1.6 ng/ml Creatine Kinase MB Ratio 3.1 Troponin I < 0.015 ng/ml Test 11/08/16 11:28 11/08/16 14:11 11/08/16 16:48 Bedside Glucose 134 mg/dl Activated Partial Thromboplast Time 69.2 SECONDS Partial Thromboplastin Ratio 2.7 Sodium Level 139 mmol/L Potassium Level 4.6 mmol/L Chloride Level 104 mmol/L Carbon Dioxide Level 26 mmol/L Anion Gap 9.0 mmol/L Blood Urea Nitrogen 29 mg/dl Creatinine 0.94 mg/dl Est Creatinine Clear Calc Drug Dose 78.2 ml/min Estimated GFR () 92.9 Estimated GFR (Non- 80.1 BUN/Creatinine Ratio 30.9 Random Glucose 126 mg/dl Calcium Level 10.8 mg/dl Vitamin B12 Level 1631 pg/mL Hepatitis B Surface Antigen NEG Hepatitis B Surface Antibody NEG Hepatitis C Antibody NEG HIV (1&2) Ab and P24 Ag, 4th Gener NEG Assessment & Plan (1) Alcohol dependence, daily use (2) Acute respiratory failure with hypoxia (3) New onset atrial fibrillation (4) Diabetes (5) Arthritis (6) High cholesterol (7) Heart disease (8) Hypertension (9) Pneumonia Neuro: Daily alcohol use: On alcohol withdrawal protocol Getting fully casted, thiamine, gabapentin, Ativan No evidence of withdrawal during my evaluation the day Cardiovascular: New-onset atrial fibrillation: Could be secondary to hypoxia versus on-call use , less likely Optimize magnesium to level greater than 2 Echocardiogram report pending Rate controlled at the present time On metoprolol XL 50 mg May have component of volume overload, adequate diuresis today. Check brain atretic peptide Respiratory Acute hypoxic respiratory failure Numerous possible etiologies Reviewed lower extremity venous duplex which was negative, noncontrast CT scan of the chest reviewed, report from VQ scan reviewed. Community-acquired pneumonia considered, aspiration pneumonitis and aspiration pneumonia in differential. Viral pneumonia, sent second influenza, mycoplasma and legionella titers pending, HIV titers pending. HSV and differential however think low yield at this point, we'll not start acyclovir given poor renal function Inflammatory lung disease also in differential, if patient requires intubation we'll obtain bronchoscopy with evaluation for diffuse alveolar hemorrhage. Placed on steroids today. Continue high flow nasal cannula at this time. GI: Mild transaminitis, hepatitis panel negative, likely secondary to alcohol use Nutrition: Written for diet. Renal: Acute kidney injury: Creatinine downtrending from 1.4-0.94 Patient still getting considerable volume from IV antibiotics, and heparin Patient still globally negative and last 24 hours Hematology: Mild anemia On heparin infusion presumed for possible PE. While PE is in differential there is no appearance of consideration for submassive PE, troponins remain negative awaiting echo and brain atretic peptide Infectious disease: Meets criteria for community-acquired pneumonia Likely has structural lung disease, history of smoking no formal diagnosis of COPD, HIV negative On Zosyn and Levaquin and vancomycin, Patient artery on broad-spectrum antibiotics limited utility of blood cultures Urine largely unremarkable Will send sputum culture Endocrine: Blood sugars within adequate range Patient is a full code, patient's will be surrogate decision maker Patient is agreeable to blood transfusion, consent obtained Patient consented for central venous access, arterial line, endotracheal intubation, bronchoscopy, chest thoracostomy tube. I have personally spent 60 minutes of critical care time in the direct management of this patient. This is a life/limb threatening event. This includes time spent evaluating patient, direct bedside care, chart review, placing orders, interpretation of diagnostic studies, discussion with consultants, patient, and family members, as well as other required patient management activities. This time is exclusive of all separately billable procedures, and teaching time and separate from and in addition to any other critical care service time. Problem Qualifiers (1) Diabetes: Diabetes mellitus type: type 2 Diabetes mellitus complication status: without complication
[2016-11-08 17:38] LABS: ISTAT ALLEN TEST Pass; ISTAT ARTERIAL BLOOD GAS HCO3 22 meq/L (19-24); ISTAT ARTERIAL BLOOD GAS PCO2 34 mmHg (35-46); ISTAT ARTERIAL BLOOD GAS PO2 67 mmHg (80-95); ISTAT ARTERIAL BLOOD GAS pH 7.42 (7.35-7.45); ISTAT CARBON DIOXIDE 23 mEq/l (24-31); ISTAT DELIVERY SYSTEM Cannula; ISTAT SITE R Radial
[2016-11-08] MEDS: PIPERACILL/TAZOBAC IV 3.375 GM in DEXTROSE 5% 100ML 100 ML IV SCH (17:52)
[2016-11-08 18:31] LABS: INFLUENZA A PCR Neg for Influ A (NEG); INFLUENZA B PCR Neg for Influ B (NEG)
--- NOTE | 2016-11-08 22:41 | ECHOCARDIOGRAM REPORT ---
*NOTICE TO RECEIVING [employer] This information is strictly Confidential and protected under [place] law. [place] law prohibits you from making any further disclosure of this information unless further disclosure is expressly permitted by the written consent of the person to whom it pertains or is authorized by law. A general authorization for the release of medical or other information is not sufficient for this purpose. Hospital accepts no responsibility if the information is made available to any other person, INCLUDING THE PATIENT. Interpretation Summary * Name: JOSE E SCHULTZ Study Date: 11/08/2016 02:25 PM BP: 92/62 mmHg * Patient Location: [facility] HR: 89 * : 1945 (M/d/yyyy) Gender: Male Height: 68 in * Age: 71 yrs Ethnicity: CA Weight: 209 lb * Ordering Physician: Jose Melendez * Performed By: Jennifer Norton * * Reason For Study: A-FIB * BSA: 2.1 m2 * -- Conclusions -- * 1. Normal LV size. Mild concentric LVH. * 2. Normal LV systolic function. LVEF 65-70 %. No regional wall motion abnormalities. * 3. RV not well visualized, grossly normal size, mild RV dysfunction. * 4. Mild aortic valve sclerosis without stenosis. * 5. Oass-ck-zezeekll mitral regurgitation. * 6. Severe left atrial dilation. * 7. Normal estimated PA and RA pressures. * 8. No prior studies for comparison. Procedure Details * A complete two-dimensional transthoracic echocardiogram was performed (2D, M-mode, Doppler and color flow Doppler). Left Ventricle * The left ventricle is grossly normal size. * There is mild concentric left ventricular hypertrophy. * Ejection Fraction = 65-70%. * No regional wall motion abnormalities noted. Right Ventricle * The right ventricle is grossly normal size. * The right ventricle is not well visualized. * The right ventricular systolic function is mildly reduced. Atria * The left atrium is severely dilated. * The right atrium is moderately dilated. * No ASD detected; PFO is not assessed. Mitral Valve * The mitral valve is grossly normal. * There is mild to moderate mitral regurgitation. Tricuspid Valve * The tricuspid valve is not well visualized, but is grossly normal. * There is no tricuspid stenosis. * There is trace tricuspid regurgitation. * Estimated PASP 30-35 Aortic Valve * Aortic valve sclerosis mild, without significant aortic valvular stenosis. * No hemodynamically significant valvular aortic stenosis. * There is no significant aortic regurgitation. Pulmonic Valve * The pulmonary valve is inadequately visualized, but the Doppler data is adequate for interpretation. * There is no pulmonic valvular stenosis. * There is no pulmonic valvular regurgitation. Great Vessels * The aortic root and proximal ascending aorta are normal sized. Pericardium/Pleural * There is no pericardial effusion. Great Vessels * IVC less than 2.1 cm, less than 50% change with respiration. Estimated RA pressure 8 MMode 2D Measurements and Calculations IVSd 1.4 cm IVSs 2.4 cm LVIDd 3.8 cm LVIDs 2.2 cm LVPWd 1.4 cm LVPWs 1.4 cm IVS/LVPW 1.0 FS 41.9 % EDV(Teich) 60.8 ml ESV(Teich) 16.0 ml EF(Teich) 73.7 % EDV(cubed) 53.6 ml ESV(cubed) 10.5 ml EF(cubed) 80.4 % % IVS thick 69.9 % % LVPW thick 1.9 % LV mass(C)d 187.4 grams LV mass(C)dI 90.0 grams/m\S\2 LV mass(C)s 167.1 grams LV mass(C)sI 80.3 grams/m\S\2 SV(Teich) 44.8 ml SI(Teich) 21.5 ml/m\S\2 SV(cubed) 43.1 ml SI(cubed) 20.7 ml/m\S\2 ACS 1.2 cm LA dimension 5.3 cm asc Aorta Diam 3.5 cm LVOT diam 1.9 cm LVOT area 2.9 cm\S\2 LVAd ap4 28.9 cm\S\2 LVLd ap4 7.4 cm EDV(MOD-sp4) 94.3 ml EDV(sp4-el) 95.4 ml LVAs ap4 13.5 cm\S\2 LVLs ap4 5.8 cm ESV(MOD-sp4) 27.5 ml ESV(sp4-el) 26.8 ml EF(MOD-sp4) 70.8 % EF(sp4-el) 71.9 % LVAd ap2 29.7 cm\S\2 LVLd ap2 8.4 cm EDV(MOD-sp2) 86.6 ml EDV(sp2-el) 89.4 ml LVAs ap2 13.0 cm\S\2 LVLs ap2 5.9 cm ESV(MOD-sp2) 25.5 ml ESV(sp2-el) 24.2 ml EF(MOD-sp2) 70.6 % EF(sp2-el) 72.9 % LVLd %diff 11.4 % EDV(MOD-bp) 96.4 ml LVLs %diff 2.3 % ESV(MOD-bp) 26.6 ml EF(MOD-bp) 72.4 % SV(MOD-sp4) 66.8 ml SI(MOD-sp4) 32.1 ml/m\S\2 SV(MOD-sp2) 61.1 ml SI(MOD-sp2) 29.3 ml/m\S\2 SV(MOD-bp) 69.8 ml SI(MOD-bp) 33.5 ml/m\S\2 SV(sp4-el) 68.6 ml SI(sp4-el) 33.0 ml/m\S\2 SV(sp2-el) 65.2 ml SI(sp2-el) 31.3 ml/m\S\2 Doppler Measurements and Calculations MV E max agnes 116.5 cm/sec MV dec time 0.23 sec Ao V2 max 176.6 cm/sec Ao max PG 12.5 mmHg Ao max PG (full) 7.1 mmHg MAEGAN(V,A) 1.9 cm\S\2 MAEGAN(V,D) 1.9 cm\S\2 LV V1 max PG 5.4 mmHg LV V1 mean PG 2.3 mmHg LV V1 max 115.9 cm/sec LV V1 mean 68.1 cm/sec LV V1 VTI 25.2 cm MR max agnes 431.6 cm/sec MR max PG 74.6 mmHg MR mean agnes 358.2 cm/sec MR mean PG 56.8 mmHg MR VTI 121.0 cm SV(LVOT) 73.1 ml SI(LVOT) 35.1 ml/m\S\2 PA V2 max 84.7 cm/sec PA max PG 2.9 mmHg TR max agnes 256.6 cm/sec
[2016-11-09] VITALS (36 sets, daily range): BP systolic 82–125; BP diastolic 49–85; PULSE 69–94; TEMP 36.5–36.8; O2SAT 86–96
[2016-11-09] MEDS: HEPARIN 25,000 UNIT/500ML D5W 500 ML IV PRN ×2 (00:28→16:46)
[2016-11-09] MEDS: PIPERACILL/TAZOBAC IV 3.375 GM in DEXTROSE 5% 100ML 100 ML IV SCH ×3 (01:25→16:50)
[2016-11-09] MEDS: METHYLPREDNISOLONE IV 60 MG in SYRINGE 0 ML IV SCH (03:48)
[2016-11-09 05:54] LABS: BASO % 0.1 %; BASO ABS # 0.01 K/uL (0-0.2); COMPLETE YES; IG% 0.5 %; LYMPH % 11.5 %; LYMPH ABS # 1.73 K/uL (1.2-3.4); MEAN CELL VOLUME 92.9 fL (80-100); MEAN CORPUSCULAR HEMOGLOBIN 31.5 pg (25-34); MEAN CORPUSCULAR HGB CONC 33.9 g/dl (32-36); MEAN PLATELET VOLUME 9.5 fL (7.4-10.4); MONO % 4.1 %; NEUT % 83.8 %; PLATELET COUNT 339 K/uL (130-400); RED BLOOD COUNT 4.09 M/uL (4.7-6.1); WHITE BLOOD COUNT 15.06 K/uL (4.8-10.8)
[2016-11-09 06:16] LABS: ISTAT ALLEN TEST Pass; ISTAT ARTERIAL BLOOD GAS HCO3 26 meq/L (19-24); ISTAT ARTERIAL BLOOD GAS PCO2 38 mmHg (35-46); ISTAT ARTERIAL BLOOD GAS PO2 69 mmHg (80-95); ISTAT ARTERIAL BLOOD GAS pH 7.43 (7.35-7.45); ISTAT CARBON DIOXIDE 27 mEq/l (24-31); ISTAT DELIVERY SYSTEM Cannula; ISTAT SITE R Radial
[2016-11-09 06:35] LABS: BUN/CREATININE RATIO 25.2 (10-20); CALCIUM 10.2 mg/dl (8.5-10.1); CREATININE 0.94 mg/dl (0.60-1.40); MAGNESIUM 1.7 mg/dl (1.8-2.4); POTASSIUM 4.3 mmol/L (3.5-5.1)
[2016-11-09 06:38] LABS: ALB/GLOB RATIO 0.5 (0.9-2)
[2016-11-09] MEDS: PANTOprazole SOD 40 MG TAB PO SCH (07:48)
[2016-11-09] MEDS: DOXAZosin MESYLATE TAB 2 MG TAB PO SCH (07:48)
[2016-11-09] MEDS: ATORVASTATIN 40 MG TAB PO SCH (07:48)
[2016-11-09] MEDS: ASPIRIN 81 MG ECTAB PO SCH (07:48)
[2016-11-09] MEDS: METOPROLOL SUCC 50MG EXT REL TAB PO SCH (07:49)
[2016-11-09] MEDS: FoLIC ACID INJ 1 MG in SYRINGE 9.8 ML IV SCH (07:50)
[2016-11-09] MEDS: THIAMINE HCL INJ 200 MG in SODIUM CHLORIDE 0.9% 50ML 50 ML IV SCH ×2 (07:51→21:40)
[2016-11-09] MEDS: INSULIN ASPART 100 UNITS/ML 3 ML PEN SC SCH ×4 (08:27→21:38)
[2016-11-09] MEDS ORDERED: GABAPENTIN 600 MG TAB PO SCH (09:00)
--- NOTE | 2016-11-09 10:08 | Critical Care Progress Note ---
Critical Care Progress Note Date of Service Nov 09, 2016. ICU Day ICU Day Number: [address] Duran Subjective No major complaints, no chest pain persistent shortness of breath mild Objective General Appearance: well-appearing, WD/WN, no apparent distress Head: normocephalic, atraumatic Eyes: PERRLA, no discharge ENT: normal mouth exam, normal throat exam Neck: normal range of motion, no tenderness, trachea midline Respiratory: rhonchi Cardiovasular: irregular rate Abdomen: non tender, normal bowel sounds, no rebound Genitourinary - Male: external genitalia normal (Peterson in place) Neuro: alert, oriented x 3, normal motor exam, normal sensation Assessment & Plan (1) Alcohol dependence, daily use (2) Acute respiratory failure with hypoxia (3) New onset atrial fibrillation (4) Diabetes (5) Arthritis (6) High cholesterol (7) Heart disease (8) Hypertension (9) Pneumonia Neuro: Daily alcohol use: On alcohol withdrawal protocol Getting folate, thiamine, gabapentin, Ativan Cardiovascular: New-onset atrial fibrillation: Rate controlled Optimize magnesium to level greater than 2 Echocardiogram report reviewed, no evidence of valvular dysfunction On metoprolol XL 50 mg May have component of volume overload, adequate diuresis today. Check brain atretic peptide Respiratory Acute hypoxic respiratory failure Numerous possible etiologies Reviewed lower extremity venous duplex which was negative, noncontrast CT scan of the chest reviewed, report from V scan reviewed. Community-acquired pneumonia still most likely cause, awaiting sputum specimen Decreased steroids from Q8 dosing to twice a day dosing Continue high flow nasal cannula at this time. GI: Mild transaminitis, hepatitis panel negative, likely secondary to alcohol use Nutrition: Tolerating diet Renal: Acute kidney injury: Creatinine downtrending from 1.4-0.94 Patient still getting considerable volume from IV antibiotics, and heparin Gentle diuresis today maintain negative fluid balance Hematology: Mild anemia On heparin infusion presumed for possible PE. Echo reviewed, no strong indication of submassive PE, brain natruretic peptide can be elevated in the setting of cor pulmonale, patient does have severely dilated left atrium Infectious disease: Meets criteria for community-acquired pneumonia Likely has structural lung disease, history of smoking no formal diagnosis of COPD, HIV negative On Zosyn and Levaquin and vancomycin, Awaiting sputum culture, if continues to improve will likely descalate to oral regimen with coverage for typical community-acquired pathogens, atypicals and would forego MRSA coverage Endocrine: Blood sugars within adequate range Patient remains critically ill due to hypoxic respiratory failure. I have personally spent 45 minutes of critical care time in the direct management of this patient. This is a life/limb threatening event. This includes time spent evaluating patient, direct bedside care, chart review, placing orders, interpretation of diagnostic studies, discussion with consultants, patient, and family members, as well as other required patient management activities. This time is exclusive of all separately billable procedures, and teaching time and separate from and in addition to any other critical care service time. Data Medications: Current Inpatient Medications Medications (Trade) Dose Ordered Sig/Raudel Route Start Time Stop Time Status Last Admin Dose Admin Levofloxacin/Prmx (Levaquin / D5W/ Premixed D5W) 150 ml @ 100 mls/hr Q24H IV 11/08/16 16:00 11/17/16 15:59 11/08/16 16:04 100 MLS/HR Metoprolol Tartrate (Lopressor Iv) 5 mg Q6 PRN IV 11/07/16 16:45 12/07/16 16:44 Acetaminophen (Tylenol Tab) 650 mg Q4H PRN PO 11/07/16 16:45 12/07/16 16:44 Al Hydrox/Mg Hydrox/Simethicone (Maalox Max Susp) 15 ml Q4H PRN PO 11/07/16 16:45 12/07/16 16:44 Magnesium Hydroxide (Milk Of Magnesia Susp) 30 ml Q12H PRN PO 11/07/16 16:45 12/07/16 16:44 Ondansetron HCl (Zofran Inj) 4 mg Q6H PRN IV 11/07/16 16:45 12/07/16 16:44 Nitroglycerin (Nitrostat Tab) 0.4 mg UD PRN SL 11/07/16 16:45 12/07/16 16:44 Polyethylene (Miralax Powder Packet) 17 gm DAILY PRN PO 11/07/16 16:45 12/07/16 16:44 Insulin Aspart (novoLOG ASPART) SLIDING SCALE G... ACHS SC 11/07/16 21:00 12/07/16 20:59 11/09/16 08:27 5 UNITS Aspirin (Ecotrin Tab) 81 mg QAM PO 11/08/16 09:00 12/08/16 08:59 11/09/16 07:48 81 MG Atorvastatin Calcium (Lipitor Tab) 40 mg QAM PO 11/08/16 09:00 12/08/16 08:59 11/09/16 07:48 40 MG Doxazosin Mesylate (Cardura Tab) 2 mg QAM PO 11/08/16 09:00 12/08/16 08:59 11/09/16 07:48 2 MG Metoprolol Succinate 50 mg 50 mg QAM PO 11/08/16 09:00 12/08/16 08:59 11/09/16 07:49 50 MG Heparin Sodium/ Dextrose (Heparin 25,000 Unit/500ml D5W) 500 ml @ 32 mls/hr [id number] PRN IV 11/07/16 17:00 12/07/16 16:59 11/09/16 00:28 35 MLS/HR Lorazepam (Ativan Inj) 1 mg Q4H PRN IV 11/07/16 17:00 12/07/16 16:59 Glucose (Glucose 40% Gel) 15-30 GRAMS 15 GRAMS... UD PRN PO 11/07/16 17:15 12/07/16 17:14 Glucose (Glucose Chew Tab) 4-8 Tablets 4 Tabl... UD PRN PO 11/07/16 17:15 12/07/16 17:14 Dextrose (Dextrose 50% 50ML Syringe) 25-50ML OF 50% DW IV FOR... UD PRN IV 11/07/16 17:15 12/07/16 17:14 Glucagon (Glucagon Inj) 1 mg UD PRN SQ 11/07/16 17:15 12/07/16 17:14 Levofloxacin 1 ea 1 ea UD PRN N/A 11/07/16 21:45 12/07/16 21:44 Thiamine HCl 200 mg/Sodium Chloride 52 ml @ 208 mls/hr BID IV 11/08/16 09:00 12/08/16 08:59 11/09/16 07:51 208 MLS/HR Folic Acid/Syringe (Folvite Inj/ Syringe) 10 ml @ 5 mls/min QAM IV 11/08/16 09:00 12/08/16 08:59 11/09/16 07:50 5 MLS/MIN Lorazepam 1 mg 1 mg ONE PRN PO 11/08/16 10:15 12/08/16 10:14 Piperacillin Sod/ Tazobactam Sod 3.375 gm/Dextrose 115 ml @ 28.75 mls/ hr Q8H IV 11/08/16 17:00 11/15/16 16:59 11/09/16 07:50 28.75 MLS/HR Methylprednisolone Sodium Succinate/ Syringe (Solu-Medrol IV/ Syringe) 0.96 ml @ 1.5 mls/min Q8H IV 11/08/16 11:00 12/08/16 10:29 11/09/16 03:48 1.5 MLS/MIN Gabapentin (Neurontin Cap) 400 mg DAILY PO 11/10/16 09:00 11/10/16 09:01 Gabapentin (Neurontin Cap) 200 mg DAILY PO 11/11/16 09:00 11/11/16 09:01 Piperacillin Sod/ Tazobactam Sod (Consult) 1 ea UD PRN N/A 11/08/16 10:45 12/08/16 10:44 Pantoprazole Sodium (Protonix Tab) 40 mg QAM PO 11/09/16 09:00 12/09/16 08:59 11/09/16 07:48 40 MG I & O: 24-Hour Column 11/09/16 08:00 Intake Total 2855 ml Output Total 3825 ml Balance -970 ml Vital Signs: Date Time Temp Pulse Resp B/P Pulse Ox O2 Delivery O2 Flow Rate FiO2 11/09/16 07:45 92 High Flow Oxygen 45 11/09/16 05:58 36.5 81 33 106/69 94 High Flow Oxygen 45 11/09/16 04:58 72 24 111/72 91 High Flow Oxygen 45 11/09/16 04:33 92 High Flow Oxygen 45 11/09/16 03:58 76 27 100/63 92 High Flow Oxygen 45 11/09/16 02:58 74 31 104/66 92 High Flow Oxygen 45 11/09/16 01:58 36.5 84 24 100/70 96 High Flow Oxygen 45 11/09/16 00:58 75 35 125/72 88 High Flow Oxygen 45 11/09/16 00:36 92 High Flow Oxygen 45 11/09/16 00:05 82 20 115/69 92 High Flow Oxygen 45 11/09/16 00:00 84 34 115/69 93 High Flow Oxygen 45 11/08/16 22:58 69 31 111/72 95 High Flow Oxygen 45 11/08/16 21:58 36.8 75 29 98/56 88 High Flow Oxygen 45 11/08/16 20:58 73 22 90/61 93 High Flow Oxygen 45 11/08/16 20:20 92 High Flow Oxygen 45 11/08/16 19:58 36.5 74 28 93/63 91 High Flow Oxygen 45 11/08/16 18:28 82 20 88/62 92 High Flow Oxygen 45 11/08/16 16:00 High Flow Oxygen 45.0 70 11/08/16 16:00 36.8 89 19 95/60 95 High Flow Oxygen 45 11/08/16 12:38 36.8 92 30 92/62 93 High Flow Oxygen 50 11/08/16 12:00 93 High Flow Oxygen 45.0 70 11/08/16 10:59 92/62 Laboratory Results: Last 24 Hours Test 11/08/16 11:12 11/08/16 11:28 11/08/16 14:11 11/08/16 16:30 Bedside Glucose 134 mg/dl Activated Partial Thromboplast Time 69.2 SECONDS Partial Thromboplastin Ratio 2.7 Sodium Level 139 mmol/L Potassium Level 4.6 mmol/L Chloride Level 104 mmol/L Carbon Dioxide Level 26 mmol/L Anion Gap 9.0 mmol/L Blood Urea Nitrogen 29 mg/dl Creatinine 0.94 mg/dl Est Creatinine Clear Calc Drug Dose 78.2 ml/min Estimated GFR () 92.9 Estimated GFR (Non- 80.1 BUN/Creatinine Ratio 30.9 Random Glucose 126 mg/dl Calcium Level 10.8 mg/dl Pro-B-Type Natriuretic Peptide 2165 pg/ml Vitamin B12 Level 1631 pg/mL Hepatitis B Surface Antigen NEG Hepatitis B Surface Antibody NEG Hepatitis C Antibody NEG HIV (1&2) Ab and P24 Ag, 4th Gener NEG Influenza Type A (RT-PCR) Neg for Influ A Influenza Type B (RT-PCR) Neg for Influ B Test 11/08/16 17:25 11/08/16 20:12 11/09/16 05:35 11/09/16 06:02 Blood Gas Sample Site R Radial R Radial Bedside Blood Gas pH (LAB) 7.42 7.43 Bedside Blood Gas pCO2 (LAB) 34 mmHg 38 mmHg Bedside Blood Gas pO2 (LAB) 67 mmHg 69 mmHg Bedside Blood Gas HCO3 (LAB) 22 meq/L 26 meq/L Bedside Blood Gas Total CO2 23 mEq/l 27 mEq/l Bedside Blood Gas Base Excess (LAB) -3.0 meq/L 1.0 meq/L Bedside Blood Gas O2 Saturation 94.0 % 94.0 % Denilson Test Pass Pass Oxygen Delivery Device Cannula Cannula Bedside Glucose 193 mg/dl White Blood Count 15.06 K/uL Red Blood Count 4.09 M/uL Hemoglobin 12.9 g/dL Hematocrit 38.0 % Mean Corpuscular Volume 92.9 fL Mean Corpuscular Hemoglobin 31.5 pg Mean Corpuscular Hemoglobin Concent 33.9 g/dl Platelet Count 339 K/uL Mean Platelet Volume 9.5 fL Neutrophils (%) (Auto) 83.8 % Lymphocytes (%) (Auto) 11.5 % Monocytes (%) (Auto) 4.1 % Eosinophils (%) (Auto) 0.0 % Basophils (%) (Auto) 0.1 % Neutrophils # (Auto) 12.64 K/uL Lymphocytes # (Auto) 1.73 K/uL Monocytes # (Auto) 0.61 K/uL Eosinophils # (Auto) 0.00 K/uL Basophils # (Auto) 0.01 K/uL RDW Standard Deviation 42.5 fL RDW Coefficient of Variation 12.5 % Immature Granulocyte % (Auto) 0.5 % Immature Granulocyte # (Auto) 0.07 K/uL Activated Partial Thromboplast Time 103.2 SECONDS Partial Thromboplastin Ratio 4.0 Sodium Level 140 mmol/L Potassium Level 4.3 mmol/L Chloride Level 106 mmol/L Carbon Dioxide Level 26 mmol/L Anion Gap 8.0 mmol/L Blood Urea Nitrogen 24 mg/dl Creatinine 0.94 mg/dl Est Creatinine Clear Calc Drug Dose 77.6 ml/min Estimated GFR () 92.9 Estimated GFR (Non- 80.1 BUN/Creatinine Ratio 25.2 Random Glucose 193 mg/dl Calcium Level 10.2 mg/dl Magnesium Level 1.7 mg/dl Total Bilirubin 0.3 mg/dl Aspartate Amino Transf (AST/SGOT) 165 U/L Alanine Aminotransferase (ALT/SGPT) 201 U/L Alkaline Phosphatase 141 U/L Total Protein 6.8 gm/dl Albumin 2.3 gm/dl Globulin 4.5 gm/dl Albumin/Globulin Ratio 0.5 Problem Qualifiers (1) Diabetes: Diabetes mellitus type: type 2 Diabetes mellitus complication status: without complication
[2016-11-09] MEDS ORDERED: MAGNESIUM OXIDE 400 MG TAB PO ONE (10:15)
[2016-11-09] MEDS ORDERED: FUROSEMIDE INJ 40 MG in SYRINGE 0 ML IV ONE (10:30)
--- NOTE | 2016-11-09 10:41 | DIAGNOSTIC IMAGING REPORT ---
CHEST ONE VIEW PORTABLE CLINICAL HISTORY: hypoxia COMPARISON STUDY: 11/08/2016 FINDINGS: The heart remains enlarged. There is diffuse elevation of the interstitium with more focal bibasal airspace opacities. There is blunting of the lateral costophrenic angle suggesting trace effusions[ IMPRESSION: 1. Cardiomegaly and continued radiographic evidence of pulmonary vascular congestion 3. Persistent more focal bibasal airspace opacities, pneumonia versus focal edema. Electronically signed by: John Katz M.D. 11/09/2016 10:39 AM Dictated Date/Time: 11/09/2016 10:37 AM
[2016-11-09] MEDS: MAGNESIUM SULFATE 1GM / D5W 1 GM in PREMIXED IN D5W 100 ML IV SCH ×2 (11:02→12:07)
--- NOTE | 2016-11-09 11:37 | PULMONARY CONSULTATION ---
DATE OF CONSULTATION: 11/09/2016 The patient is a 71-year-old male who was admitted to the hospital through the Emergency Room with shortness of breath. Dr. Melendez has asked me to evaluate the patient from a pulmonary standpoint. The patient was transferred down to the intensive care unit and evaluated by Dr. Henrik Duran yesterday. Presently he is reading a newspaper. He states he feels better. He states he developed shortness of breath about a week ago. He states it occurred when he walked out on his porch, picked up some bird seed and was feeding the birds. It came on very suddenly with episodes of joint aching and muscle aches. He states he had difficulty with walking with generalized weakness and shortness of breath. He had a cough which generally was nonproductive, though occasionally he will produce yellow sputum. He saw his family physician. Had a chest x-ray and blood work done on the day prior to admission, and he was instructed to go to the Emergency Room. He was seen by Dr. Rubén Pelaez in the ER. His oxygen saturation at that time was 88% on 5 liters, 78% on room air, with a pulse of 97 and regular. Blood pressure 107/65 and he was afebrile. He had moist breath sounds bilaterally with a heart rate that revealed a normal sinus rhythm. Chest x-ray revealed changes consistent with possible interstitial edema with cardiomegaly. He was then placed on appropriate medications and seen by Dr. Melendez then on the . He developed worsening shortness of breath associated with hypoxemia, and was transferred to the intensive care unit. In the ICU he has been treated by Dr. Duran with high flow O2, Zosyn, steroids and Levaquin and states he feels 100% better this morning. He is followed by Dr. Correia as an outpatient for heart disease and states that he has not had any arrhythmia recently. He is presently in atrial fibrillation. He has not had any industrial exposure. He has no pets at home. He does take Celebrex for joint discomfort, but has not had any nausea, vomiting or aspiration. PAST MEDICAL HISTORY: Positive for osteoarthritis, diabetes mellitus, alcoholism, hyperlipidemia, hypertension, PR in 1996, and coronary artery disease. PAST SURGICAL HISTORY: Right shoulder surgery. SOCIAL HISTORY: He has about a [id number] history of cigarette smoking, quit 15 years ago. He drinks 4 beers and 8 shots of whiskey every day. 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 He lives with his . Review of his records, he has history of a tubular adenoma, chronic right rotator cuff dysfunction, osteoarthritis, alcohol induced hepatitis, left shoulder pain, and carries a history of bladder outlet obstruction with transurethral resection and vaporization of the prostate back in 2002. At that time he had a cardiology consult. Was known to have an PR with thrombolytics and had a catheterization that showed a 50% RCA in 1996 with 30% OM1 lesion. There is a history of lung cancer and COPD in his mother's side. His father from stomach cancer. ALLERGIES: None. MEDICATIONS: Noted as an outpatient. PHYSICAL EXAMINATION: VITAL SIGNS: His vital signs are stable now. Respiratory rate is 20. His pulse is 90-110 and irregular. Oxygen saturation is 94% on 45% FiO2. He is afebrile. His I\T\O is 2896 in and 4150 out. Weight is down from 94 kilograms to 93.4 kilograms. GENERAL: Examination now reveals the patient to be comfortable, pleasant and cooperative. HEENT: Unremarkable. No telangiectasia is noted. No adenopathy is noted. Expansion of the thorax is good with deep inspiration. HEART: Has an irregular rhythm. I do not detect any murmurs or gallops. LUNGS: Reveal some coarse breath sounds in the mid lung cornell with few crackles at the right base posterior. Otherwise, they are clear. Forced expiratory maneuver is about 3 seconds with no wheezing. There is no fremitus or dullness to percussion. ABDOMEN: Soft, has a doughy consistency. EXTREMITIES: He has no cyanosis, clubbing or edema. Tattoos on his forearms are noted. His white count is 15.06, hemoglobin 12.9 with platelet count 339,000. No significant abnormalities in the differential are noted. PRP looks good with a calcium of 10.2, glucose of 193. His calcium initially was 10.9 at the time of admission, on the then 11.7. Liver enzymes are elevated as well and they are continuing to rise. Arterial blood gas revealed pH 7.43, pCO2 of 38, pO2 of 69 this morning on high flow O2. The PTT is 103 seconds. Hepatitis B surface antigen, C antibody, and HIV are negative. Influenza PCR is negative. MRSA DNA surveillance screen is negative. CT of his chest was reviewed. It shows alveolar and interstitial infiltrates with a peripheral distribution to suggest this could be an eosinophilic pneumonia. Venous Doppler showed no evidence of DVT in the lower extremities. Chest film revealed cardiomegaly. He had a lung scan done that was significantly limited with central deposition of the aerosol that was termed probably low probability. IMPRESSION: 1. Respiratory failure. This is associated with bilateral alveolar and interstitial infiltrates. 2. Pneumonitis. This has significant peripheral distribution that would make one think this may be an eosinophilic pneumonia. With the institution of steroids and antibiotics, he is considerably improved. 3. Alcoholism with elevated liver enzymes. 4. Atrial fibrillation, on heparin. RECOMMENDATIONS: 1. I would continue his present antibiotics and if there is no growth of anything in the next 48 hours, they probably could be discontinued. I would continue on the Levaquin until the legionella studies have returned and the mycoplasma studies have returned. 2. Continue on steroids. Follow the sugars carefully. I think the methylprednisolone 60 mg IV q. 8 hours is adequate for now. Hopefully, that will improve his respiratory status and improve his chest x-ray. If it is eosinophilic pneumonia, the chest film should improve very quickly within several days of the institution of steroids. 3. We will follow the patient for bleeding on anticoagulants, especially with his history of alcohol use. Thanks for asking me to evaluate Mr. Anderson. Dr. Bird will be in to see him tomorrow. He will be on for Pulmonary for the next week.
[2016-11-09 12:52] LABS: PARTIAL THROMBOPLASTIN RATIO 2.6
[2016-11-09] MEDS: LEVOFLOXACIN / D5W 750 MG in PREMIXED IN D5W 150 ML IV SCH (16:50)
[2016-11-09] MEDS ORDERED: METHYLPREDNISOLONE IV 60 MG in SYRINGE 0 ML IV SCH (17:00)
--- NOTE | 2016-11-09 19:49 | Progress Note ---
Subjective Date of Service: Nov 09, 2016. Subjective Pt evaluation today including: conversation w/ patient, conversation w/ family ( by phone), physical exam, chart review, lab review, review of studies (cxr , echo), review of inpatient medication list Pain: denies cp, abd pain PO Intake: improved today (eating breakfast during my visit) Voiding: stein catheter in place Tele overnight with rate-controlled a. fib. "I Feel better." +cough but no sputum. No fevers/chills. More energy today. Still with GUERRERO. Staff report no obvious ETOH withdrawal symptoms / DTs. Problem List Medical Problems: (1) Hypoxia Status: Acute (2) New onset atrial fibrillation Status: Acute (3) Pneumonia Status: Acute Review of Systems Constitutional: No fever Respiratory: No sputum Cardiac: No PND, No chest pain, No edema, No orthopnea Abdomen: No pain Objective Vital Signs Date Time Temp Pulse Resp B/P Pulse Ox O2 Delivery O2 Flow Rate FiO2 11/09/16 18:00 83 23 107/64 91 High Flow Oxygen 45 11/09/16 15:40 90 High Flow Oxygen 45 11/09/16 15:30 74 22 92 High Flow Oxygen 45 11/09/16 15:00 75 26 91 11/09/16 14:58 71 26 83/57 92 11/09/16 14:30 72 23 93 11/09/16 14:03 78 28 82/55 92 High Flow Oxygen 45 11/09/16 14:00 72 21 91 11/09/16 12:58 69 23 83/55 88 11/09/16 12:54 88 93 11/09/16 11:58 36.7 81 24 104/62 90 High Flow Oxygen 45 11/09/16 11:30 93 High Flow Oxygen 45 11/09/16 11:00 78 20 92 11/09/16 10:58 75 23 111/61 94 11/09/16 09:58 75 19 95/65 92 High Flow Oxygen 45 11/09/16 09:02 94 20 102/59 86 11/09/16 09:00 87 23 89 11/09/16 08:59 89 28 103/67 89 11/09/16 07:59 36.7 93 29 118/63 93 High Flow Oxygen 45 11/09/16 07:45 92 High Flow Oxygen 45 11/09/16 07:00 75 30 94 11/09/16 05:58 36.5 81 33 106/69 94 High Flow Oxygen 45 11/09/16 04:58 72 24 111/72 91 High Flow Oxygen 45 11/09/16 04:33 92 High Flow Oxygen 45 11/09/16 03:58 76 27 100/63 92 High Flow Oxygen 45 11/09/16 02:58 74 31 104/66 92 High Flow Oxygen 45 11/09/16 01:58 36.5 84 24 100/70 96 High Flow Oxygen 45 11/09/16 00:58 75 35 125/72 88 High Flow Oxygen 45 11/09/16 00:36 92 High Flow Oxygen 45 11/09/16 00:05 82 20 115/69 92 High Flow Oxygen 45 11/09/16 00:00 84 34 115/69 93 High Flow Oxygen 45 11/08/16 22:58 69 31 111/72 95 High Flow Oxygen 45 11/08/16 21:58 36.8 75 29 98/56 88 High Flow Oxygen 45 11/08/16 20:58 73 22 90/61 93 High Flow Oxygen 45 11/08/16 20:20 92 High Flow Oxygen 45 11/08/16 19:58 36.5 74 28 93/63 91 High Flow Oxygen 45 Physical Exam General Appearance: no apparent distress ENT: pharynx normal Neck: no JVD Respiratory/Chest: no respiratory distress, no accessory muscle use, + rales ( fine, bases - much improved today), + pertinent finding (no wheeze or rhonchi) Cardiovascular: no gallop, no murmur, + irregularly irregular Abdomen: normal bowel sounds, non tender, soft, no organomegaly Extremities: no pedal edema Neurologic/Psychiatric: alert, oriented x 3, + pertinent finding (no tremors or signs of etoh withdrawal ) Laboratory Results Last 24 Hours Test 11/08/16 20:12 11/09/16 05:35 11/09/16 06:02 11/09/16 11:11 Bedside Glucose 193 mg/dl 300 mg/dl White Blood Count 15.06 K/uL Red Blood Count 4.09 M/uL Hemoglobin 12.9 g/dL Hematocrit 38.0 % Mean Corpuscular Volume 92.9 fL Mean Corpuscular Hemoglobin 31.5 pg Mean Corpuscular Hemoglobin Concent 33.9 g/dl Platelet Count 339 K/uL Mean Platelet Volume 9.5 fL Neutrophils (%) (Auto) 83.8 % Lymphocytes (%) (Auto) 11.5 % Monocytes (%) (Auto) 4.1 % Eosinophils (%) (Auto) 0.0 % Basophils (%) (Auto) 0.1 % Neutrophils # (Auto) 12.64 K/uL Lymphocytes # (Auto) 1.73 K/uL Monocytes # (Auto) 0.61 K/uL Eosinophils # (Auto) 0.00 K/uL Basophils # (Auto) 0.01 K/uL RDW Standard Deviation 42.5 fL RDW Coefficient of Variation 12.5 % Immature Granulocyte % (Auto) 0.5 % Immature Granulocyte # (Auto) 0.07 K/uL Activated Partial Thromboplast Time 103.2 SECONDS Partial Thromboplastin Ratio 4.0 Sodium Level 140 mmol/L Potassium Level 4.3 mmol/L Chloride Level 106 mmol/L Carbon Dioxide Level 26 mmol/L Anion Gap 8.0 mmol/L Blood Urea Nitrogen 24 mg/dl Creatinine 0.94 mg/dl Est Creatinine Clear Calc Drug Dose 77.6 ml/min Estimated GFR () 92.9 Estimated GFR (Non- 80.1 BUN/Creatinine Ratio 25.2 Random Glucose 193 mg/dl Calcium Level 10.2 mg/dl Magnesium Level 1.7 mg/dl Total Bilirubin 0.3 mg/dl Aspartate Amino Transf (AST/SGOT) 165 U/L Alanine Aminotransferase (ALT/SGPT) 201 U/L Alkaline Phosphatase 141 U/L Total Protein 6.8 gm/dl Albumin 2.3 gm/dl Globulin 4.5 gm/dl Albumin/Globulin Ratio 0.5 Blood Gas Sample Site R Radial Bedside Blood Gas pH (LAB) 7.43 Bedside Blood Gas pCO2 (LAB) 38 mmHg Bedside Blood Gas pO2 (LAB) 69 mmHg Bedside Blood Gas HCO3 (LAB) 26 meq/L Bedside Blood Gas Total CO2 27 mEq/l Bedside Blood Gas Base Excess (LAB) 1.0 meq/L Bedside Blood Gas O2 Saturation 94.0 % Denilson Test Pass Oxygen Delivery Device Cannula Test 11/09/16 12:27 11/09/16 16:09 Activated Partial Thromboplast Time 67.4 SECONDS Partial Thromboplastin Ratio 2.6 Bedside Glucose 139 mg/dl Assessment and Plan 71yo female with: 1. acute hypoxic respiratory failure - likely infectious pneumonia, etiology uncertain, +/- acute CHF. Slight improvement as noted by decrease in FiO2 requirement. Flu PCR negative x 2. HIV negative. Mycoplasma titers, urine for legionella antigen - both pending. Day #2 zosyn. Day #3 levaquin. MRSA swab negative; defer on MRSA antibiotic coverage. Send sputum cx if able to produce sputum. Continue High-flow NC - wean as tolerated. Appreciate pulmonary and critical care consults. Defer additional testing/work-up to them. 2. suspected acute diastolic CHF - lasix IV ordered by critical care team - agree with such. 3. new-onset a. fib - remains on heparin drip. Rates controlled with BB. ECHO with preserved EF. 4. abnormal LFTs - low albumin, mildly elevated INR, abnormal LFTs - all in the setting of chronic etoh suggest cirrhosis. HepB/C titers negative. Will ultimately need dedicated u/s of liver; defer for now. 5. suspected sepsis - 2nd to #1 - improving. 6. acute kidney injury - resolved. 7. alcoholism - high risk of withdrawal. Remains on preventive alcohol withdrawal protocol with gabapentin + ativan. Cont thiamine 200mg IV q12h and folic acid 1mg IV daily. 8. hypomagnesemia - 1.7 today - 2 more grams of mag sulfate; repeat level in AM. 9. h/o CAD - no evidence of ACS while here. Follows with Dr. Correia. 10. h/o T2DM - add lantus 10 units HS; cont novolog ac/hs. 11. DVT proph - heparin drip. 12. GI proph - PPI. 13. BPH - stein in place; continue doxazosin. 14. ?thyroid disorder per records - TSH on 11/04/16 was normal. 15. mild right-sided CHF (RV dysfunction on echo) - noted. Acute...2nd to pulmonary process? Caution with over-diuresis. updated by phone this evening PT, OT consults Continued [facility] stay due to: multiple IV medications needed, other (resp failure )
[2016-11-09] MEDS: INSULIN GLARGINE SOLOSTAR 100 UNITS/ML 3 ML PEN SC SCH (21:39)
[2016-11-09] MEDS: MAGNESIUM OXIDE 400 MG TAB PO SCH (21:52)
[2016-11-10] VITALS (20 sets, daily range): BP systolic 89–134; BP diastolic 56–82; PULSE 63–85; TEMP 36.4–36.8; O2SAT 88–94; BMI 31.3
[2016-11-10] MEDS: PIPERACILL/TAZOBAC IV 3.375 GM in DEXTROSE 5% 100ML 100 ML IV SCH ×3 (01:58→17:05)
[2016-11-10] MEDS ORDERED: LORAZEPAM 2 MG/ML 1 ML VIAL IV STA (02:13)
[2016-11-10 05:52] LABS: BASO ABS # 0.01 K/uL (0-0.2); COMPLETE YES; HEMATOCRIT 37.9 % (42-52); IG% 0.7 %; LYMPH % 9.1 %; LYMPH ABS # 2.04 K/uL (1.2-3.4); MEAN CELL VOLUME 91.1 fL (80-100); MEAN CORPUSCULAR HEMOGLOBIN 31.3 pg (25-34); MEAN CORPUSCULAR HGB CONC 34.3 g/dl (32-36); MEAN PLATELET VOLUME 9.4 fL (7.4-10.4); MONO % 6.7 %; NEUT % 83.5 %; PLATELET COUNT 340 K/uL (130-400); RED BLOOD COUNT 4.16 M/uL (4.7-6.1); WHITE BLOOD COUNT 22.51 K/uL (4.8-10.8)
[2016-11-10 06:11] LABS: PARTIAL THROMBOPLASTIN RATIO 2.5
[2016-11-10 06:33] LABS: BUN/CREATININE RATIO 24.1 (10-20); CALCIUM 9.7 mg/dl (8.5-10.1); CREATININE 1.1 mg/dl (0.60-1.40); MAGNESIUM 1.7 mg/dl (1.8-2.4); POTASSIUM 3.8 mmol/L (3.5-5.1)
--- NOTE | 2016-11-10 07:43 | DIAGNOSTIC IMAGING REPORT ---
CHEST ONE VIEW PORTABLE CLINICAL HISTORY: Hypoxia. COMPARISON STUDY: Chest CT November 07, 2016 and chest radiograph November 09, 2016. FINDINGS: Surgical anchors within the left humerus are noted. There is no pneumothorax. Cardiomegaly is unchanged. No pleural effusion is identified. Diffuse interstitial thickening with bilateral airspace opacities persist. IMPRESSION: No significant change in diffuse interstitial thickening with bilateral opacities since prior exam. The findings are nonspecific and may reflect an infectious process or pulmonary edema superimposed upon suspected interstitial lung disease. Electronically signed by: Micky Perales M.D. 11/10/2016 7:41 AM Dictated Date/Time: 11/10/2016 7:37 AM
[2016-11-10] MEDS ORDERED: MAGNESIUM SULFATE 1GM / D5W 1 GM in PREMIXED IN D5W 100 ML IV ONE (07:45)
[2016-11-10] MEDS: INSULIN ASPART 100 UNITS/ML 3 ML PEN SC SCH ×4 (08:50→21:43)
[2016-11-10] MEDS: METHYLPREDNISOLONE IV 60 MG in SYRINGE 0 ML IV SCH ×3 (08:50→21:41)
[2016-11-10] MEDS: FoLIC ACID INJ 1 MG in SYRINGE 9.8 ML IV SCH (08:52)
[2016-11-10] MEDS: ATORVASTATIN 40 MG TAB PO SCH (08:53)
[2016-11-10] MEDS: MAGNESIUM OXIDE 400 MG TAB PO SCH ×2 (08:53→21:42)
[2016-11-10] MEDS: PANTOprazole SOD 40 MG TAB PO SCH (08:54)
[2016-11-10] MEDS: ASPIRIN 81 MG ECTAB PO SCH (08:54)
[2016-11-10] MEDS: DOXAZosin MESYLATE TAB 2 MG TAB PO SCH (08:54)
[2016-11-10] MEDS: METOPROLOL SUCC 50MG EXT REL TAB PO SCH (08:54)
[2016-11-10] MEDS: THIAMINE HCL INJ 200 MG in SODIUM CHLORIDE 0.9% 50ML 50 ML IV SCH ×2 (08:55→21:44)
[2016-11-10] MEDS ORDERED: GABAPENTIN 400 MG CAP PO SCH (09:00)
--- NOTE | 2016-11-10 10:03 | Critical Care Progress Note ---
Critical Care Progress Note Date of Service Nov 10, 2016. Attending Dr. 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 Objective General Appearance: well-appearing, WD/WN, no apparent distress Head: normocephalic, atraumatic Eyes: PERRLA, no discharge ENT: normal Neck: normal range of motion, no tenderness, trachea midline Respiratory: scattered rhonchi Cardiovasular: irregularly irregular rhythm, rate controlled. Abdomen: non tender, normal bowel sounds, no rebound Genitourinary - Male: Peterson in place Neuro: alert, oriented x 3, normal motor exam, normal sensation Assessment & Plan Neuro: alcohol withdrawal protocol folate, thiamine, gabapentin, Ativan Cardiovascular: New-onset atrial fibrillation: Rate controlled, anticoagulated with heparin On metoprolol XL 50 mg BNP mildly elevated. Echo reviewed: severe LA dilation, normal PA/RA pressures, EF: 65-70 Respiratory Acute hypoxic respiratory failure 2/2 questions infectious vs. ILD/Pulmonary fibrosis- there is some concern that he has had some pre-existing lung disease from occupational exposure No evidence of PE on imaging Changing steroid dosing to q6- to see if underlying lung pathology responds to steroids If no response; patient is in agreement to do a lung biopsy Continue high flow nasal cannula at this time. GI: Mild transaminitis, hepatitis panel negative, likely secondary to alcohol use Nutrition: Tolerating diet Renal: Acute kidney injury: largely resolved, though there was a mild elevation in Cr this morning to 1.1 from 0.94 Getting some fluids with alcohol protocol and antibiotics. Hematology: Mild anemia On heparin infusion for afib Infectious disease: On Zosyn and Levaquin for presumed CAP d/c Vanc. 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 the changes of the ct chest are chronic, or subacute at best. the optimal diagnosis will be made by open lung biopsy, as discussed with the pt he is leaning towards a steroids trial prior to being aggressive, meanwhile, continue steroids, increase the dose to solu 60 mg q6h. continue optiflow, keep in ICU for now. CCT 45 min including the above coordination. Data Medications: Current Inpatient Medications Medications (Trade) Dose Ordered Sig/Raudel Route Start Time Stop Time Status Last Admin Dose Admin Levofloxacin/Prmx (Levaquin / D5W/ Premixed D5W) 150 ml @ 100 mls/hr Q24H IV 11/08/16 16:00 11/17/16 15:59 11/09/16 16:50 100 MLS/HR Metoprolol Tartrate (Lopressor Iv) 5 mg Q6 PRN IV 11/07/16 16:45 12/07/16 16:44 Acetaminophen (Tylenol Tab) 650 mg Q4H PRN PO 11/07/16 16:45 12/07/16 16:44 Al Hydrox/Mg Hydrox/Simethicone (Maalox Max Susp) 15 ml Q4H PRN PO 11/07/16 16:45 12/07/16 16:44 Magnesium Hydroxide (Milk Of Magnesia Susp) 30 ml Q12H PRN PO 11/07/16 16:45 12/07/16 16:44 Ondansetron HCl (Zofran Inj) 4 mg Q6H PRN IV 11/07/16 16:45 12/07/16 16:44 Nitroglycerin (Nitrostat Tab) 0.4 mg UD PRN SL 11/07/16 16:45 12/07/16 16:44 Polyethylene (Miralax Powder Packet) 17 gm DAILY PRN PO 11/07/16 16:45 12/07/16 16:44 Insulin Aspart (novoLOG ASPART) SLIDING SCALE G... ACHS SC 11/07/16 21:00 12/07/16 20:59 11/10/16 08:50 5 UNITS Aspirin (Ecotrin Tab) 81 mg QAM PO 11/08/16 09:00 12/08/16 08:59 11/10/16 08:54 81 MG Atorvastatin Calcium (Lipitor Tab) 40 mg QAM PO 11/08/16 09:00 12/08/16 08:59 11/10/16 08:53 40 MG Doxazosin Mesylate (Cardura Tab) 2 mg QAM PO 11/08/16 09:00 12/08/16 08:59 11/10/16 08:54 2 MG Metoprolol Succinate 50 mg 50 mg QAM PO 1/21/17 09:00 12/08/16 08:59 11/10/16 08:54 50 MG Heparin Sodium/ Dextrose (Heparin 25,000 Unit/500ml D5W) 500 ml @ 32 mls/hr [id number] PRN IV 11/07/16 17:00 12/07/16 16:59 11/09/16 16:46 32 MLS/HR Lorazepam (Ativan Inj) 1 mg Q4H PRN IV 11/07/16 17:00 12/07/16 16:59 Glucose (Glucose 40% Gel) 15-30 GRAMS 15 GRAMS... UD PRN PO 11/07/16 17:15 12/07/16 17:14 Glucose (Glucose Chew Tab) 4-8 Tablets 4 Tabl... UD PRN PO 11/07/16 17:15 12/07/16 17:14 Dextrose (Dextrose 50% 50ML Syringe) 25-50ML OF 50% DW IV FOR... UD PRN IV 11/07/16 17:15 12/07/16 17:14 Glucagon (Glucagon Inj) 1 mg UD PRN SQ 11/07/16 17:15 12/07/16 17:14 Levofloxacin 1 ea 1 ea UD PRN N/A 11/07/16 21:45 12/07/16 21:44 Thiamine HCl 200 mg/Sodium Chloride 52 ml @ 208 mls/hr BID IV 11/08/16 09:00 12/08/16 08:59 11/10/16 08:55 208 MLS/HR Folic Acid/Syringe (Folvite Inj/ Syringe) 10 ml @ 5 mls/min QAM IV 11/08/16 09:00 12/08/16 08:59 11/10/16 08:52 5 MLS/MIN Lorazepam 1 mg 1 mg ONE PRN PO 11/08/16 10:15 12/08/16 10:14 Piperacillin Sod/ Tazobactam Sod/ Dextrose (Zosyn Iv/D5 100ml) 115 ml @ 28.75 mls/ hr Q8H IV 11/08/16 17:00 11/15/16 16:59 11/10/16 08:51 28.75 MLS/HR Gabapentin (Neurontin Cap) 200 mg DAILY PO 11/11/16 09:00 11/11/16 09:01 Piperacillin Sod/ Tazobactam Sod (Consult) 1 ea UD PRN N/A 11/08/16 10:45 12/08/16 10:44 Pantoprazole Sodium (Protonix Tab) 40 mg QAM PO 11/09/16 09:00 12/09/16 08:59 11/10/16 08:54 40 MG Magnesium Oxide (Mag-Ox Tab) 400 mg BID PO 11/09/16 21:00 12/09/16 20:59 11/10/16 08:53 400 MG Insulin Glargine 10 unit 10 unit HS SC 11/09/16 21:00 12/09/16 20:59 11/09/16 21:39 10 UNIT Methylprednisolone Sodium Succinate/ Syringe (Solu-Medrol IV/ Syringe) 0.96 ml @ 1.5 mls/min Q6H IV 11/10/16 08:00 12/10/16 07:59 11/10/16 08:50 1.5 MLS/MIN Miscellaneous Information (Nursing Heparin Iv Rate Change) 1 ea ONE ONCE N/A 11/10/16 10:00 11/10/16 10:01 UNV I & O: 24-Hour Column 11/10/16 08:00 Intake Total 3396 ml Output Total 3525 ml Balance -129 ml Vital Signs: Date Time Temp Pulse Resp B/P Pulse Ox O2 Delivery O2 Flow Rate FiO2 11/10/16 08:00 36.5 82 24 106/65 92 High Flow Oxygen 45.0 60 11/10/16 08:00 High Flow Oxygen 45.0 60 11/10/16 05:58 81 19 120/76 90 11/10/16 05:29 79 27 126/67 88 11/10/16 04:59 77 126/67 89 11/10/16 04:08 92 High Flow Oxygen 45.0 45 11/10/16 03:58 76 28 120/78 94 11/10/16 02:58 77 30 130/81 92 11/10/16 01:59 73 29 112/67 89 11/10/16 00:59 77 23 89/70 92 High Flow Oxygen 45 11/10/16 00:07 91 High Flow Oxygen 45 11/09/16 23:59 75 29 117/49 93 High Flow Oxygen 45 11/09/16 22:58 83 34 121/85 92 High Flow Oxygen 45 11/09/16 21:58 80 26 123/80 93 High Flow Oxygen 45 11/09/16 20:58 81 35 118/72 88 High Flow Oxygen 45 11/09/16 19:58 36.8 81 32 119/73 91 High Flow Oxygen 45 11/09/16 18:00 83 23 107/64 91 High Flow Oxygen 45 11/09/16 15:40 90 High Flow Oxygen 45 11/09/16 15:30 74 22 92 High Flow Oxygen 45 11/09/16 15:00 75 26 91 11/09/16 14:58 71 26 83/57 92 11/09/16 14:30 72 23 93 11/09/16 14:03 78 28 82/55 92 High Flow Oxygen 45 11/09/16 14:00 72 21 91 11/09/16 12:58 69 23 83/55 88 11/09/16 12:54 88 93 11/09/16 11:58 36.7 81 24 104/62 90 High Flow Oxygen 45 11/09/16 11:30 93 High Flow Oxygen 45 11/09/16 11:00 78 20 92 11/09/16 10:58 75 23 111/61 94 Laboratory Results: Last 24 Hours Test 11/09/16 11:11 11/09/16 12:27 11/09/16 16:09 11/09/16 21:32 Bedside Glucose 300 mg/dl 139 mg/dl 225 mg/dl Activated Partial Thromboplast Time 67.4 SECONDS Partial Thromboplastin Ratio 2.6 Test 11/10/16 05:40 White Blood Count 22.51 K/uL Red Blood Count 4.16 M/uL Hemoglobin 13.0 g/dL Hematocrit 37.9 % Mean Corpuscular Volume 91.1 fL Mean Corpuscular Hemoglobin 31.3 pg Mean Corpuscular Hemoglobin Concent 34.3 g/dl Platelet Count 340 K/uL Mean Platelet Volume 9.4 fL Neutrophils (%) (Auto) 83.5 % Lymphocytes (%) (Auto) 9.1 % Monocytes (%) (Auto) 6.7 % Eosinophils (%) (Auto) 0.0 % Basophils (%) (Auto) 0.0 % Neutrophils # (Auto) 18.78 K/uL Lymphocytes # (Auto) 2.04 K/uL Monocytes # (Auto) 1.51 K/uL Eosinophils # (Auto) 0.01 K/uL Basophils # (Auto) 0.01 K/uL RDW Standard Deviation 40.4 fL RDW Coefficient of Variation 12.2 % Immature Granulocyte % (Auto) 0.7 % Immature Granulocyte # (Auto) 0.16 K/uL Activated Partial Thromboplast Time 63.9 SECONDS Partial Thromboplastin Ratio 2.5 Sodium Level 140 mmol/L Potassium Level 3.8 mmol/L Chloride Level 102 mmol/L Carbon Dioxide Level 27 mmol/L Anion Gap 11.0 mmol/L Blood Urea Nitrogen 27 mg/dl Creatinine 1.10 mg/dl Est Creatinine Clear Calc Drug Dose 66.3 ml/min Estimated GFR () 76.8 Estimated GFR (Non- 66.2 BUN/Creatinine Ratio 24.1 Random Glucose 169 mg/dl Calcium Level 9.7 mg/dl Magnesium Level 1.7 mg/dl
[2016-11-10] MEDS: HEPARIN 25,000 UNIT/500ML D5W 500 ML IV PRN (11:14)
--- NOTE | 2016-11-10 11:26 | Medical Consult ---
Consultation Note Consultation Note Consult Dictated #[id number]
--- NOTE | 2016-11-10 13:45 | CONSULTATION REPORT ---
DATE OF CONSULTATION: 11/10/2016 REASON FOR CONSULTATION: Interstitial lung disease. HISTORY OF PRESENT ILLNESS: This is a 71-year-old male who was admitted to [facility] secondary to shortness of breath. I visited with the patient in the intensive care unit. All of his labs and diagnostics were reviewed and the case was also discussed with Dr. Garcia, the intensive care medicine physician. According to the patient, he was in his usual state of health until approximately 1 week ago when he noticed some shortness of breath that seemed to get progressively worse to the point where he had trouble functioning at home. Because of this, he did present to the [facility] and was admitted on November 07 of this year. The patient did have various labs checked including influenza serology which was negative for influenza A and B, he did have legionella and mycoplasma antibodies checked, which are pending at this time, and hepatitis screen was also checked which was negative for hepatitis A, B and C. A CBC most recently was done today which showed a white blood cell count of 22.5, hemoglobin and hematocrit 13.0 and 37.9 and platelet count is normal. A chemistry profile today also reveals sodium, potassium and creatinine are within normal range. He had a slight elevation of his BUN at 27. Magnesium is noted to be 1.7. The patient also did have various imaging studies including a lower extremity venous ultrasound that was negative for DVT, and a VQ scan that was noted to be low probability for pulmonary thromboembolus. A CT scan of his chest showed the patient had bilateral interstitial ground-glass opacities along with medial and hilar adenopathy. The patient has required high-flow oxygen since admission to the intensive care unit, and is felt this is likely due to interstitial lung disease noted on his CT scan. The intensive care service has opted to try high dose steroids along with broad spectrum antibiotics at this time, and the patient has noted some clinical improvement. We are asked to see the patient as if the above modalities are not successful, the patient may require a lung biopsy for further diagnostic purposes. I did visit with the patient in the ICU and again he noted he had progressive shortness of breath over the past week. I questioned him on numerous other symptoms, and he does not report any falls, head injuries or visual changes. He also denies any tinnitus, vertigo or epistaxis. He denies any fevers, shakes or chills, but does note progressive shortness of breath. He has not been around any ill contacts to the best of his knowledge and he denies any chest pain. 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 He does report a 20 pound weight loss over the past several months, but has recently gained 10 pounds of this back. He does not use home oxygen. He denies any abdominal pain, nausea, vomiting, diarrhea or dysuria. He has no history of stroke or seizure. No history of DVT or PE. It is noteworthy to mention that he did smoke for 25 years up to 2 packs of cigarettes per day, but quit 35 years ago. At the time of my exam, the patient was resting comfortably in a bedside chair; however he was using high-flow oxygen. PAST MEDICAL HISTORY: Includes: 1. Arthritis. 2. Diabetes. 3. Coronary artery disease. 4. Hypercholesterolemia. 5. Hypertension. 6. Myocardial infarction. 7. History of coronary artery disease. 8. History of alcohol abuse. 9. BPH. PAST SURGICAL HISTORY: Includes shoulder surgery. ALLERGIES: None. OUTPATIENT MEDICATION REGIMEN: Includes the followin. Vitamin C 1000 mg daily. 2. Aspirin 81 mg daily. 3. Lipitor 40 mg daily. 4. Celebrex 200 mg daily. 5. Vitamin D 2000 units daily. 6. Cholestyramine 4 grams in the evening. 7. Doxazosin 2 mg daily. 8. Krill oil daily. 9. Losartan 50 mg daily. 10. Glucophage 500 mg daily in the morning. 11. Metoprolol 50 mg daily. 12. Multivitamin daily. 13. Vitamin A 8000 units daily. 14. Vitamin E 400 units daily. SOCIAL HISTORY: The patient is a smoker with specification as noted above. FAMILY HISTORY: Positive for coronary artery disease and diabetes. REVIEW OF SYSTEMS: As noted above. PHYSICAL EXAMINATION: VITAL SIGNS: The patient is afebrile. Temperature 36.4, pulse 63 and regular, respirations are 20 and unlabored, blood pressure 100/56, pulse ox is 91% on 45% high-flow nasal cannula with an FIO2 of 60%. GENERAL: He is alert. He is oriented x3, his is in no distress. HEENT: Head is atraumatic, normocephalic. EYES: His pupils are equal, round and reactive to light and accommodation. His extraocular motions are intact. EARS: Auditory acuity is grossly intact. NOSE: Nasal patency was intact. Sinuses are nontender. MOUTH: Has dry mucous membranes. NECK: Reveals no JVD or tracheal shift. CARDIOVASCULAR: Revealed irregular rate and rhythm. LUNGS: Revealed no rales, rhonchi or wheezing. He was not using accessory muscles. ABDOMEN: Soft and nontender. EXTREMITIES: Revealed no cyanosis, clubbing, edema, or calf tenderness. NEUROLOGIC: Revealed cranial nerves II-XII are grossly intact. No focal deficits were noted. DIAGNOSTIC DATA: As noted above. IMPRESSION: A 71-year-old male with hypoxia and interstitial ground-glass opacities noted on CAT scan. PLAN: The patient has been placed on high dose IV steroids, as well as broad spectrum antibiotics which will continue as directed by the Pulmonary/intensive care service. I did discuss with Dr. Garcia and he notes that if these modalities are unsuccessful he may ask us to perform an open lung biopsy, and after discussion with him and the patient, they do wish to opt for medical management at this time. We will be available to perform a lung biopsy if needed. It is noteworthy to mention that the patient is on a heparin drip due to new onset afib that is noted this admission and cessation of his heparin drip will need to be coordinated prior to any surgical procedures. We will continue to follow along while the patient is hospitalized.
--- NOTE | 2016-11-10 13:52 | PULMONARY PROGRESS NOTE ---
DATE: 11/10/2016 TIME: 1:05 p.m. SUBJECTIVE: The patient states he is continuing to feel better. He is less short of breath. His cough is less. He feels a bit better each day. I spoke with the patient at length. He insists that his symptoms all began approximately 5 or 6 days ago. All of a sudden he was extremely short of breath. He had a severe cough, much more than normal. He has not expectorated any phlegm. There has been no hemoptysis. He denies chills, fevers or sweats. OBJECTIVE: GENERAL: The patient appears comfortable. He is still on a high flow nasal at 45%. ENT: Unremarkable. HEART: Heart rate was 85 per minute. The rhythm is irregularly irregular. LUNGS: Lung cornell revealed fine rales posteriorly bilaterally. Respiratory rate was 20 breaths per minute and not labored. ABDOMEN: Soft and nontender. Bowel sounds were present. EXTREMITIES: Showed no cyanosis, clubbing or edema. 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 They are not any birds in cages. He is not handling any of their excrement. He simply puts seed out for them. The patient relates that he is PPD positive. He believes that was the last time he had had a chest x-ray done for any reason. He states he was told it was negative. In our system I could not find any prior chest x-rays before this hospital stay. The x-ray from today again shows cardiomegaly, but it is a portable film. There is generalized increased interstitial markings. This was reviewed with his x-ray done on the . At that time, the quality of the x-ray was a little better and the patient appeared to have numerous tiny nodulations. The patient's CAT scan of the chest was reviewed, which was done on the . This shows quite diffuse disease. It does have somewhat of a peripheral concentration more than central. That would raise the consideration to the possibility of eosinophilic pneumonia. Obviously, other interstitial diseases such as bronchiolitis obliterans with organizing pneumonia is not excluded as well. CBC today shows a white count of 22.51. This has increased compared with 14.63 on admission. Today's PTT is 63.9. Blood gas done yesterday showed pH 7.43 with a pCO2 of 38 and a pO2 of 69 done on a high flow nasal cannula. The patient had a BNP elevated at 2165. Sodium 140, potassium 3.8, chloride 102, bicarbonate 27. BUN was 27 with a creatinine of 1.1. ASSESSMENT: 1. Acute respiratory failure with hypoxia. 2. Diffuse interstitial lung disease. 3. Positive PPD by history. 4. Rule out pneumonia. The patient has a history of acute illness, though his x-ray would look much more chronic in most circumstances. If indeed he has had no symptoms until the past week, this could reflect an acute interstitial pneumonitis. Things such as bronchiolitis obliterans with organizing pneumonia should be considered. It would seem unlikely to be acute tuberculosis, though that can never be ruled out. He is not expectorating any phlegm at present. He is receiving a trial of steroids and antibiotics. I agree with that for now. Clinically, he is feeling better. We will see how his status changes over the next several days. I would at least check an KAYLIN level, RHEA, and a sed rate.
[2016-11-10] MEDS: LEVOFLOXACIN / D5W 750 MG in PREMIXED IN D5W 150 ML IV SCH (17:05)
--- NOTE | 2016-11-10 19:00 | Progress Note ---
Subjective Date of Service: Nov 10, 2016. Subjective pt feels much better on high flow oxygen, is understanding for concern of inflammatory interstitial lung disease, pts concern for constipation Problem List Medical Problems: (1) Hypoxia Status: Acute (2) New onset atrial fibrillation Status: Acute (3) Pneumonia Status: Acute Review of Systems Constitutional: No chills, No fatigue, No fever, No weakness Respiratory: + cough, + dyspnea at rest, + dyspnea on exertion, + shortness of breath, No sputum Cardiac: No chest pain, No edema Abdomen: + constipation, No diarrhea, No nausea, No pain, No vomiting Male : No dysuria, No incontinence, No urinary frequency Neurologic: No memory loss, No paralysis Psychiatric: No anhedonism, No depression symptoms Objective Vital Signs Date Time Temp Pulse Resp B/P Pulse Ox O2 Delivery O2 Flow Rate FiO2 11/10/16 05:58 81 19 120/76 90 11/10/16 05:29 79 27 126/67 88 11/10/16 04:59 77 126/67 89 11/10/16 04:08 92 High Flow Oxygen 45.0 45 11/10/16 03:58 76 28 120/78 94 11/10/16 02:58 77 30 130/81 92 11/10/16 01:59 73 29 112/67 89 11/10/16 00:59 77 23 89/70 92 High Flow Oxygen 45 11/10/16 00:07 91 High Flow Oxygen 45 11/09/16 23:59 75 29 117/49 93 High Flow Oxygen 45 11/09/16 22:58 83 34 121/85 92 High Flow Oxygen 45 11/09/16 21:58 80 26 123/80 93 High Flow Oxygen 45 11/09/16 20:58 81 35 118/72 88 High Flow Oxygen 45 11/09/16 19:58 36.8 81 32 119/73 91 High Flow Oxygen 45 11/09/16 18:00 83 23 107/64 91 High Flow Oxygen 45 11/09/16 15:40 90 High Flow Oxygen 45 11/09/16 15:30 74 22 92 High Flow Oxygen 45 11/09/16 15:00 75 26 91 11/09/16 14:58 71 26 83/57 92 11/09/16 14:30 72 23 93 11/09/16 14:03 78 28 82/55 92 High Flow Oxygen 45 11/09/16 14:00 72 21 91 11/09/16 12:58 69 23 83/55 88 11/09/16 12:54 88 93 11/09/16 11:58 36.7 81 24 104/62 90 High Flow Oxygen 45 11/09/16 11:30 93 High Flow Oxygen 45 11/09/16 11:00 78 20 92 11/09/16 10:58 75 23 111/61 94 11/09/16 09:58 75 19 95/65 92 High Flow Oxygen 45 11/09/16 09:02 94 20 102/59 86 11/09/16 09:00 87 23 89 11/09/16 08:59 89 28 103/67 89 11/09/16 07:59 36.7 93 29 118/63 93 High Flow Oxygen 45 11/09/16 07:45 92 High Flow Oxygen 45 Physical Exam General Appearance: WD/WN, + moderate distress Neck: supple, no JVD Respiratory/Chest: + respiratory distress, + decreased breath sounds, + accessory muscle use Cardiovascular: + systolic murmur, + irregularly irregular Abdomen: normal bowel sounds, non tender, soft Extremities: no pedal edema, no calf tenderness Laboratory Results Last 24 Hours Test 11/09/16 11:11 11/09/16 12:27 11/09/16 16:09 11/09/16 21:32 Bedside Glucose 300 mg/dl 139 mg/dl 225 mg/dl Activated Partial Thromboplast Time 67.4 SECONDS Partial Thromboplastin Ratio 2.6 Test 11/10/16 05:40 White Blood Count 22.51 K/uL Red Blood Count 4.16 M/uL Hemoglobin 13.0 g/dL Hematocrit 37.9 % Mean Corpuscular Volume 91.1 fL Mean Corpuscular Hemoglobin 31.3 pg Mean Corpuscular Hemoglobin Concent 34.3 g/dl Platelet Count 340 K/uL Mean Platelet Volume 9.4 fL Neutrophils (%) (Auto) 83.5 % Lymphocytes (%) (Auto) 9.1 % Monocytes (%) (Auto) 6.7 % Eosinophils (%) (Auto) 0.0 % Basophils (%) (Auto) 0.0 % Neutrophils # (Auto) 18.78 K/uL Lymphocytes # (Auto) 2.04 K/uL Monocytes # (Auto) 1.51 K/uL Eosinophils # (Auto) 0.01 K/uL Basophils # (Auto) 0.01 K/uL RDW Standard Deviation 40.4 fL RDW Coefficient of Variation 12.2 % Immature Granulocyte % (Auto) 0.7 % Immature Granulocyte # (Auto) 0.16 K/uL Activated Partial Thromboplast Time 63.9 SECONDS Partial Thromboplastin Ratio 2.5 Sodium Level 140 mmol/L Potassium Level 3.8 mmol/L Chloride Level 102 mmol/L Carbon Dioxide Level 27 mmol/L Anion Gap 11.0 mmol/L Blood Urea Nitrogen 27 mg/dl Creatinine 1.10 mg/dl Est Creatinine Clear Calc Drug Dose 66.3 ml/min Estimated GFR () 76.8 Estimated GFR (Non- 66.2 BUN/Creatinine Ratio 24.1 Random Glucose 169 mg/dl Calcium Level 9.7 mg/dl Magnesium Level 1.7 mg/dl Assessment and Plan 71 M with acute hypoxic respiratory failure secondary to interstitial lung disease,inital concern for pneumonia and acute diastolic heart failure with acute kidney failure and new onset afib. History of alcohol use with abnormal liver function serology acute hypoxic respiratory failure Flu PCR negative x 2, MRSA swab negative.Mycoplasma titers, urine for legionella antigen - pending. working diagnosis for inflammatory or interstitial lung disease, if no improvement with steroids may consider lung biopsy Lisasyn/ levmabel. pulmonary and critical care consults. acute diastolic CHF - lasix IV new-onset a. fib - heparin drip. Rates controlled with BB. ECHO with preserved EF. acute kidney injury - resolved. alcoholism - risk of withdrawal. Remains on preventive alcohol withdrawal protocol with gabapentin + ativan. Cont thiamine 200mg IV q12h and folic acid 1mg IV daily. abnormal LFTs - in the setting of chronic etoh suggest cirrhosis. HepB/C titers negative. need u/s of liver; maybe as out pt T2DM -lantus 10 units HS; cont novolog ac/hs. DVT proph - heparin drip. BPH - stein in place; continue doxazosin. Continued [facility] stay due to: multiple IV medications needed, other (resp failure )
--- NOTE | 2016-11-10 19:14 | SURGICAL CONSULTATION ---
DATE OF CONSULTATION: 11/10/2016 Mr. Anderson was seen today on 11/10/16. I had a long talk with the patient. I examined him and also spoke with Mr. Leonidas Eaton as well as Dr. Garcia. I would agree with Dr. Garcia that the changes we see on the CT scan and x-rays are not consistent with his history of having problems only for the last week. At this point, I agree with high dose steroids as he has a high A-a gradient. If he does not respond in a few days, we would be glad to offer him an open lung biopsy and I have told him so. He understands.
[2016-11-10] MEDS: DOCUSATE SODIUM 100 MG CAP PO SCH (21:41)
[2016-11-10] MEDS: INSULIN GLARGINE SOLOSTAR 100 UNITS/ML 3 ML PEN SC SCH (21:43)
[2016-11-11] VITALS (15 sets, daily range): BP systolic 96–156; BP diastolic 59–92; PULSE 68–82; TEMP 36.5–37; O2SAT 90–96
[2016-11-11] MEDS: PIPERACILL/TAZOBAC IV 3.375 GM in DEXTROSE 5% 100ML 100 ML IV SCH ×3 (01:13→17:11)
[2016-11-11] MEDS: METHYLPREDNISOLONE IV 60 MG in SYRINGE 0 ML IV SCH ×4 (01:14→20:05)
[2016-11-11] MEDS: HEPARIN 25,000 UNIT/500ML D5W 500 ML IV PRN ×2 (01:15→20:13)
[2016-11-11 06:19] LABS: PARTIAL THROMBOPLASTIN RATIO 2.2
[2016-11-11] MEDS: FoLIC ACID INJ 1 MG in SYRINGE 9.8 ML IV SCH (08:10)
[2016-11-11] MEDS: THIAMINE HCL INJ 200 MG in SODIUM CHLORIDE 0.9% 50ML 50 ML IV SCH ×2 (08:10→20:13)
[2016-11-11] MEDS: ATORVASTATIN 40 MG TAB PO SCH (08:11)
[2016-11-11] MEDS: ASPIRIN 81 MG ECTAB PO SCH (08:11)
[2016-11-11] MEDS: DOCUSATE SODIUM 100 MG CAP PO SCH ×2 (08:11→20:05)
[2016-11-11] MEDS: MAGNESIUM OXIDE 400 MG TAB PO SCH ×2 (08:12→20:05)
[2016-11-11] MEDS: DOXAZosin MESYLATE TAB 2 MG TAB PO SCH (08:12)
[2016-11-11] MEDS: PANTOprazole SOD 40 MG TAB PO SCH (08:13)
[2016-11-11] MEDS: METOPROLOL SUCC 50MG EXT REL TAB PO SCH (08:13)
[2016-11-11] MEDS: INSULIN ASPART 100 UNITS/ML 3 ML PEN SC SCH ×4 (08:25→20:11)
[2016-11-11] MEDS ORDERED: GABAPENTIN 100 MG CAP PO SCH (09:00)
[2016-11-11 09:39] LABS: BASO % 0.1 %; BASO ABS # 0.01 K/uL (0-0.2); COMPLETE YES; HEMATOCRIT 37.1 % (42-52); IG% 0.6 %; LYMPH % 8.2 %; LYMPH ABS # 1.48 K/uL (1.2-3.4); MEAN CELL VOLUME 92.5 fL (80-100); MEAN CORPUSCULAR HEMOGLOBIN 32.2 pg (25-34); MEAN CORPUSCULAR HGB CONC 34.8 g/dl (32-36); MEAN PLATELET VOLUME 9.4 fL (7.4-10.4); MONO % 3.5 %; NEUT % 87.6 %; PLATELET COUNT 294 K/uL (130-400); RED BLOOD COUNT 4.01 M/uL (4.7-6.1); WHITE BLOOD COUNT 18.05 K/uL (4.8-10.8)
[2016-11-11 09:57] LABS: CALCIUM 9.3 mg/dl (8.5-10.1); CREATININE 0.99 mg/dl (0.60-1.40)
[2016-11-11] MEDS ORDERED: MAGNESIUM HYDROXIDE SUSP 30 ML UDC PO PRN (10:15)
--- NOTE | 2016-11-11 11:04 | Critical Care Progress Note ---
Critical Care Progress Note Date of Service Nov 11, 2016. Attending Dr. Garcia Subjective Some shortness of breath at rest and exertion Otherwise doing well. no acute events Objective General Appearance: well-appearing, WD/WN, no apparent distress Head: normocephalic, atraumatic Eyes: PERRLA, no discharge ENT: normal Neck: normal range of motion, no tenderness, trachea midline Respiratory: scattered rhonchi Cardiovasular: irregularly irregular rhythm, rate controlled. Abdomen: non tender, normal bowel sounds, no rebound Genitourinary - Male: Peterson in place Neuro: alert, oriented x 3, normal motor exam, normal sensation Assessment & Plan Neuro: alcohol withdrawal protocol folate, thiamine, gabapentin, Ativan Cardiovascular: New-onset atrial fibrillation: Rate controlled, anticoagulated with heparin On metoprolol XL 50 mg BNP mildly elevated. Echo reviewed: severe LA dilation, normal PA/RA pressures, EF: 65-70 Respiratory Acute hypoxic respiratory failure 2/2 questions infectious vs. ILD/Pulmonary fibrosis- there is some concern that he has had some pre-existing lung disease from occupational exposure No evidence of PE on imaging steroid q6- to see if underlying lung pathology responds to steroids If no response; patient is in agreement to do a lung biopsy- Appreciate pulmonary and CT surgery recommendations. Continue high flow nasal cannula at this time. GI: Mild transaminitis, hepatitis panel negative, likely secondary to alcohol use Nutrition: Tolerating diet Renal: Acute kidney injury: resolved Getting some fluids with alcohol protocol and antibiotics. Hematology: Mild anemia On heparin infusion for afib Infectious disease: On Zosyn and Levaquin for presumed CAP d/c Vanc. Endocrine: Blood sugars acceptable Attending Addendum: #1 ILD, etiology is UK. #2 acute on chronic hypoxic resp failure. #3 new onset afib. Plan: #1 continue high flow O2. #2 continue steroids. #3 if by the end of the week , steroids do not improve the pt clinical status , will persue open lung biopsy, discussed with Dr. Eric, appreciate his input. #4 start cpap/bipap nocturnally. and high flow day time. #5continue current treatment. #6 disposition to the regular floor. discussed with the staff on rounds in details. CCT 35 min. Data Medications: Current Inpatient Medications Medications (Trade) Dose Ordered Sig/Raudel Route Start Time Stop Time Status Last Admin Dose Admin Levofloxacin/Prmx (Levaquin / D5W/ Premixed D5W) 150 ml @ 100 mls/hr Q24H IV 11/08/16 16:00 11/17/16 15:59 11/10/16 17:05 100 MLS/HR Metoprolol Tartrate (Lopressor Iv) 5 mg Q6 PRN IV 11/07/16 16:45 12/07/16 16:44 Acetaminophen (Tylenol Tab) 650 mg Q4H PRN PO 11/07/16 16:45 12/07/16 16:44 Al Hydrox/Mg Hydrox/Simethicone (Maalox Max Susp) 15 ml Q4H PRN PO 11/07/16 16:45 12/07/16 16:44 Ondansetron HCl (Zofran Inj) 4 mg Q6H PRN IV 11/07/16 16:45 12/07/16 16:44 Nitroglycerin (Nitrostat Tab) 0.4 mg UD PRN SL 11/07/16 16:45 12/07/16 16:44 Polyethylene (Miralax Powder Packet) 17 gm DAILY PRN PO 11/07/16 16:45 12/07/16 16:44 Insulin Aspart (novoLOG ASPART) SLIDING SCALE G... ACHS SC 11/07/16 21:00 12/07/16 20:59 11/11/16 08:25 4 UNITS Aspirin (Ecotrin Tab) 81 mg QAM PO 11/08/16 09:00 12/08/16 08:59 11/11/16 08:11 81 MG Atorvastatin Calcium (Lipitor Tab) 40 mg QAM PO 11/08/16 09:00 12/08/16 08:59 11/11/16 08:11 40 MG Doxazosin Mesylate (Cardura Tab) 2 mg QAM PO 11/08/16 09:00 12/08/16 08:59 11/11/16 08:12 2 MG Metoprolol Succinate 50 mg 50 mg QAM PO 11/08/16 09:00 12/08/16 08:59 11/11/16 08:13 50 MG Heparin Sodium/ Dextrose (Heparin 25,000 Unit/500ml D5W) 500 ml @ 32 mls/hr [id number] PRN IV 1/20/17 17:00 12/07/16 16:59 11/11/16 01:15 32 MLS/HR Lorazepam (Ativan Inj) 1 mg Q4H PRN IV 11/07/16 17:00 12/07/16 16:59 Glucose (Glucose 40% Gel) 15-30 GRAMS 15 GRAMS... UD PRN PO 11/07/16 17:15 12/07/16 17:14 Glucose (Glucose Chew Tab) 4-8 Tablets 4 Tabl... UD PRN PO 11/07/16 17:15 12/07/16 17:14 Dextrose (Dextrose 50% 50ML Syringe) 25-50ML OF 50% DW IV FOR... UD PRN IV 11/07/16 17:15 12/07/16 17:14 Glucagon (Glucagon Inj) 1 mg UD PRN SQ 11/07/16 17:15 12/07/16 17:14 Levofloxacin 1 ea 1 ea UD PRN N/A 11/07/16 21:45 12/07/16 21:44 Thiamine HCl 200 mg/Sodium Chloride 52 ml @ 208 mls/hr BID IV 11/08/16 09:00 12/08/16 08:59 11/11/16 08:10 208 MLS/HR Folic Acid/Syringe (Folvite Inj/ Syringe) 10 ml @ 5 mls/min QAM IV 11/08/16 09:00 12/08/16 08:59 11/11/16 08:10 5 MLS/MIN Lorazepam 1 mg 1 mg ONE PRN PO 11/08/16 10:15 12/08/16 10:14 Piperacillin Sod/ Tazobactam Sod/ Dextrose (Zosyn Iv/D5 100ml) 115 ml @ 28.75 mls/ hr Q8H IV 11/08/16 17:00 11/15/16 16:59 11/11/16 08:11 28.75 MLS/HR Piperacillin Sod/ Tazobactam Sod (Consult) 1 ea UD PRN N/A 11/08/16 10:45 12/08/16 10:44 Pantoprazole Sodium (Protonix Tab) 40 mg QAM PO 11/09/16 09:00 12/09/16 08:59 11/11/16 08:13 40 MG Magnesium Oxide (Mag-Ox Tab) 400 mg BID PO 11/09/16 21:00 12/09/16 20:59 11/11/16 08:12 400 MG Insulin Glargine 10 unit 10 unit HS SC 11/09/16 21:00 12/09/16 20:59 11/10/16 21:43 10 UNIT Methylprednisolone Sodium Succinate/ Syringe (Solu-Medrol IV/ Syringe) 0.96 ml @ 1.5 mls/min Q6H IV 11/10/16 08:00 12/10/16 07:59 11/11/16 08:11 1.5 MLS/MIN Docusate Sodium (coLACE CAP) 100 mg BID PO 11/10/16 21:00 12/10/16 20:59 11/11/16 08:11 100 MG Magnesium Hydroxide (Milk Of Magnesia Susp) 30 ml Q6H PRN PO 11/11/16 10:15 12/11/16 10:14 I & O: 24-Hour Column 11/11/16 08:00 Intake Total 2638 ml Output Total 4100 ml Balance -1462 ml Vital Signs: Date Time Temp Pulse Resp B/P Pulse Ox O2 Delivery O2 Flow Rate FiO2 11/11/16 10:00 80 18 109/75 91 High Flow Oxygen 45.0 60 11/11/16 08:00 37.0 68 20 115/62 93 High Flow Oxygen 45.0 60 11/11/16 08:00 High Flow Oxygen 45.0 60 11/11/16 06:00 79 18 124/85 92 High Flow Oxygen 45.0 60 11/11/16 04:00 36.8 72 24 137/92 93 High Flow Oxygen 45.0 60 11/11/16 04:00 High Flow Oxygen 45.0 60 11/11/16 02:00 72 28 148/84 95 High Flow Oxygen 45.0 60 11/11/16 00:00 36.8 76 28 137/83 90 45.0 60 11/10/16 23:59 High Flow Oxygen 45.0 60 11/10/16 22:00 72 18 128/79 91 45.0 60 11/10/16 20:00 High Flow Oxygen 45.0 60 11/10/16 20:00 36.8 73 22 134/82 93 45.0 60 11/10/16 19:00 82 19 93 45.0 60 11/10/16 18:00 76 22 125/76 90 45.0 60 11/10/16 17:00 85 18 92 45.0 60 11/10/16 16:01 77 20 119/78 90 45.0 60 11/10/16 16:00 High Flow Oxygen 45.0 60 11/10/16 16:00 36.8 77 18 90 45.0 60 11/10/16 14:10 63 22 124/69 94 High Flow Oxygen 45.0 60 11/10/16 12:00 85 20 94 High Flow Oxygen 45.0 60 11/10/16 12:00 High Flow Oxygen 45.0 60 Laboratory Results: Last 24 Hours Test 11/10/16 11:02 11/10/16 16:24 11/10/16 21:38 11/11/16 05:35 Bedside Glucose 219 mg/dl 183 mg/dl 250 mg/dl Erythrocyte Sedimentation Rate 42 mm/hr Activated Partial Thromboplast Time 58.3 SECONDS Partial Thromboplastin Ratio 2.2 Test 11/11/16 06:12 11/11/16 09:30 Bedside Glucose 174 mg/dl White Blood Count 18.05 K/uL Red Blood Count 4.01 M/uL Hemoglobin 12.9 g/dL Hematocrit 37.1 % Mean Corpuscular Volume 92.5 fL Mean Corpuscular Hemoglobin 32.2 pg Mean Corpuscular Hemoglobin Concent 34.8 g/dl Platelet Count 294 K/uL Mean Platelet Volume 9.4 fL Neutrophils (%) (Auto) 87.6 % Lymphocytes (%) (Auto) 8.2 % Monocytes (%) (Auto) 3.5 % Eosinophils (%) (Auto) 0.0 % Basophils (%) (Auto) 0.1 % Neutrophils # (Auto) 15.83 K/uL Lymphocytes # (Auto) 1.48 K/uL Monocytes # (Auto) 0.63 K/uL Eosinophils # (Auto) 0.00 K/uL Basophils # (Auto) 0.01 K/uL RDW Standard Deviation 42.0 fL RDW Coefficient of Variation 12.4 % Immature Granulocyte % (Auto) 0.6 % Immature Granulocyte # (Auto) 0.10 K/uL Sodium Level 139 mmol/L Potassium Level 4.0 mmol/L Chloride Level 102 mmol/L Carbon Dioxide Level 29 mmol/L Anion Gap 8.0 mmol/L Blood Urea Nitrogen 25 mg/dl Creatinine 0.99 mg/dl Est Creatinine Clear Calc Drug Dose 73.9 ml/min Estimated GFR () 87.2 Estimated GFR (Non- 75.2 BUN/Creatinine Ratio 25.0 Random Glucose 268 mg/dl Calcium Level 9.3 mg/dl
[2016-11-11 11:15] LABS: LEGIONELLA ANTIGEN NOT DETECTED
[2016-11-11] MEDS: LEVOFLOXACIN / D5W 750 MG in PREMIXED IN D5W 150 ML IV SCH (16:09)
--- NOTE | 2016-11-11 16:49 | Progress Note ---
Subjective Date of Service: Nov 11, 2016. Subjective the pt has no new complaints, still slightly constipated but no real progress in less shortness of breath Problem List Medical Problems: (1) Hypoxia Status: Acute (2) New onset atrial fibrillation Status: Acute (3) Pneumonia Status: Acute Review of Systems Constitutional: No chills, No fever Respiratory: + cough, + dyspnea on exertion, + shortness of breath, + sputum Cardiac: No chest pain, No edema Abdomen: + constipation, No diarrhea, No nausea, No pain, No vomiting Musculoskeletal: No joint pain, No swelling Male : No dysuria Objective Vital Signs Date Time Temp Pulse Resp B/P Pulse Ox O2 Delivery O2 Flow Rate FiO2 11/11/16 06:00 79 18 124/85 92 High Flow Oxygen 45.0 60 11/11/16 04:00 36.8 72 24 137/92 93 High Flow Oxygen 45.0 60 11/11/16 04:00 High Flow Oxygen 45.0 60 11/11/16 02:00 72 28 148/84 95 High Flow Oxygen 45.0 60 11/11/16 00:00 36.8 76 28 137/83 90 45.0 60 11/10/16 23:59 High Flow Oxygen 45.0 60 11/10/16 22:00 72 18 128/79 91 45.0 60 11/10/16 20:00 High Flow Oxygen 45.0 60 11/10/16 20:00 36.8 73 22 134/82 93 45.0 60 11/10/16 19:00 82 19 93 45.0 60 11/10/16 18:00 76 22 125/76 90 45.0 60 11/10/16 17:00 85 18 92 45.0 60 11/10/16 16:01 77 20 119/78 90 45.0 60 11/10/16 16:00 High Flow Oxygen 45.0 60 11/10/16 16:00 36.8 77 18 90 45.0 60 11/10/16 14:10 63 22 124/69 94 High Flow Oxygen 45.0 60 11/10/16 12:00 85 20 94 High Flow Oxygen 45.0 60 11/10/16 12:00 High Flow Oxygen 45.0 60 11/10/16 10:00 36.4 63 20 100/56 91 High Flow Oxygen 45.0 60 11/10/16 08:00 36.5 82 24 106/65 92 High Flow Oxygen 45.0 60 11/10/16 08:00 High Flow Oxygen 65 11/10/16 08:00 High Flow Oxygen 45.0 60 Physical Exam General Appearance: WD/WN, + mild distress Eyes: PERRL, EOMI Neck: supple, no JVD Respiratory/Chest: + respiratory distress, + decreased breath sounds, + accessory muscle use, + rales Cardiovascular: regular rate, rhythm, + systolic murmur Abdomen: normal bowel sounds, non tender, soft Extremities: no pedal edema, no calf tenderness Neurologic/Psychiatric: alert, oriented x 3 Laboratory Results Last 24 Hours Test 11/10/16 11:02 11/10/16 16:24 11/10/16 21:38 11/11/16 05:35 Bedside Glucose 219 mg/dl 183 mg/dl 250 mg/dl Erythrocyte Sedimentation Rate 42 mm/hr Activated Partial Thromboplast Time 58.3 SECONDS Partial Thromboplastin Ratio 2.2 Test 11/11/16 06:12 Bedside Glucose 174 mg/dl Assessment and Plan 71 M with acute hypoxic respiratory failure secondary to interstitial lung disease,inital concern for pneumonia and acute diastolic heart failure with acute kidney failure and new onset afib. History of alcohol use with abnormal liver function serology acute hypoxic respiratory failure Flu PCR negative x 2, MRSA swab negative.Mycoplasma titers, urine for legionella antigen - pending. working diagnosis for inflammatory or interstitial lung disease, if no improvement with steroids may consider lung biopsy, Dr oneill has seen pt Zosyn/ levaquin. acute diastolic CHF - lasix new-onset a. fib - heparin drip will not convert as potential upcoming procedure. Rates controlled with BB. ECHO with preserved EF. acute kidney injury - resolved. alcoholism - risk of withdrawal. Remains on preventive alcohol withdrawal protocol HepB/C titers negative. T2DM -lantus 10 units HS; cont novolog ac/hs. DVT proph - heparin drip. BPH - stein in place; continue doxazosin. Continued [facility] stay due to: multiple IV medications needed, other (resp failure )
--- NOTE | 2016-11-11 18:24 | SURGERY PROGRESS NOTE ---
DATE: 11/11/2016 Mr. Anderson is seen today. He really has not changed much clinically. He is still requiring high doses of oxygen. I discussed this with Dr. Garcia and told him we will be glad to perform an open lung biopsy if he does not respond to steroids. I discussed this with the patient also.
[2016-11-11 18:33] LABS: PARTIAL THROMBOPLASTIN RATIO 2.2
[2016-11-11] MEDS: INSULIN GLARGINE SOLOSTAR 100 UNITS/ML 3 ML PEN SC SCH (20:12)
[2016-11-12] VITALS (19 sets, daily range): BP systolic 131–154; BP diastolic 72–103; PULSE 65–82; TEMP 36.3–36.8; O2SAT 9–97
[2016-11-12] MEDS: PIPERACILL/TAZOBAC IV 3.375 GM in DEXTROSE 5% 100ML 100 ML IV SCH ×3 (01:05→17:01)
[2016-11-12] MEDS: METHYLPREDNISOLONE IV 60 MG in SYRINGE 0 ML IV SCH ×4 (01:06→20:04)
[2016-11-12 06:04] LABS: PARTIAL THROMBOPLASTIN RATIO 2.4
[2016-11-12 08:41] LABS: BASO ABS # 0.01 K/uL (0-0.2); COMPLETE YES; HEMATOCRIT 38.1 % (42-52); IG% 1.2 %; LYMPH % 7.4 %; LYMPH ABS # 1.53 K/uL (1.2-3.4); MEAN CORPUSCULAR HEMOGLOBIN 32.1 pg (25-34); MEAN CORPUSCULAR HGB CONC 34.9 g/dl (32-36); MEAN PLATELET VOLUME 9.5 fL (7.4-10.4); MONO % 5.5 %; NEUT % 85.9 %; PLATELET COUNT 283 K/uL (130-400); RED BLOOD COUNT 4.14 M/uL (4.7-6.1); WHITE BLOOD COUNT 20.67 K/uL (4.8-10.8)
[2016-11-12 09:09] LABS: BUN/CREATININE RATIO 20.1 (10-20); CALCIUM 9.2 mg/dl (8.5-10.1); CREATININE 1.1 mg/dl (0.60-1.40); POTASSIUM 4.1 mmol/L (3.5-5.1)
[2016-11-12 09:18] LABS: BETA-HYDROXYBUTYRATE 1.31 mg/dL (0.2-2.81)
[2016-11-12] MEDS: ASPIRIN 81 MG ECTAB PO SCH (09:20)
[2016-11-12] MEDS: DOXAZosin MESYLATE TAB 2 MG TAB PO SCH (09:20)
[2016-11-12] MEDS: PANTOprazole SOD 40 MG TAB PO SCH (09:20)
[2016-11-12] MEDS: DOCUSATE SODIUM 100 MG CAP PO SCH ×2 (09:20→21:00)
[2016-11-12] MEDS: ATORVASTATIN 40 MG TAB PO SCH (09:20)
[2016-11-12] MEDS: MAGNESIUM OXIDE 400 MG TAB PO SCH ×2 (09:20→21:32)
[2016-11-12] MEDS: METOPROLOL SUCC 50MG EXT REL TAB PO SCH (09:21)
[2016-11-12] MEDS: ENOXAPARIN 100 MG/1ML SYR SQ SCH ×2 (09:22→21:33)
[2016-11-12] MEDS: THIAMINE HCL INJ 200 MG in SODIUM CHLORIDE 0.9% 50ML 50 ML IV SCH ×2 (09:24→21:32)
[2016-11-12] MEDS: FoLIC ACID INJ 1 MG in SYRINGE 9.8 ML IV SCH (09:24)
[2016-11-12] MEDS: INSULIN ASPART 100 UNITS/ML 3 ML PEN SC SCH ×4 (09:26→21:52)
--- NOTE | 2016-11-12 09:28 | Critical Care Progress Note ---
Critical Care Progress Note Date of Service Nov 12, 2016. Attending Dr. Gacria Subjective Doing well Shortness of breath is minimal denies chest pain Objective General Appearance: well-appearing, WD/WN, no apparent distress Head: normocephalic, atraumatic Eyes: PERRLA, no discharge ENT: normal Neck: normal range of motion, no tenderness, trachea midline Respiratory: Left lung is clear, Right lung has crackles at the LL, no wheezing Cardiovascular: irregularly irregular rhythm, rate controlled. Abdomen: non tender, normal bowel sounds, no rebound Genitourinary - Male: s/p stein removal Neuro: alert, oriented x 3, normal motor exam, normal sensation Assessment & Plan Neuro: alcohol withdrawal protocol folate, thiamine, gabapentin, Ativan Cardiovascular: New-onset atrial fibrillation: Rate controlled, anticoagulated with heparin On metoprolol XL 50 mg BNP mildly elevated. Echo reviewed: severe LA dilation, normal PA/RA pressures, EF: 65-70 Respiratory Acute hypoxic respiratory failure 2/2 questions infectious vs. ILD/Pulmonary fibrosis- there is some concern that he has had some pre-existing lung disease from occupational exposure No evidence of PE on imaging steroid q6- to see if underlying lung pathology responds to steroids If no response; patient is in agreement to do a lung biopsy- Appreciate pulmonary and CT surgery recommendations. - possibly for lung biopsy on thursday Continue high flow nasal cannula at this time. Repeat Chest Xray GI: Mild transaminitis, hepatitis panel negative, likely secondary to alcohol use Nutrition: Tolerating diet Renal: Acute kidney injury: resolved Hematology: Mild anemia Infectious disease: On Zosyn and Levaquin for presumed CAP Endocrine: Adjust Lantus to 20 units due to steroids and Blood sugar elevation. attending addendum. the pt seen , examined, chart reviewed including labs and CXR. the pt with ILD of [place] origin, and new onset a fib on heparin drip. Plan: 1- continue with steroids. 2- stop Abx on 11/14 ( 7 days course for pneumonia). 3- ambulate the pt with oxygen. 4- change to low flow O2. and Bipap nocturnally. 5- if no improvement, proceed with open lung biopsy, discussed with Dr. Eric , appreciate his input. 6- change heparin drip to lovenox, can be stopped 24 hrs prior to the procedure if needed. discussed with the sstaff on rounds in details. agree with Dr. Wells assessment and plan. time spent to coordinate the care for this pt was 35 min. Data Medications: Current Inpatient Medications Medications (Trade) Dose Ordered Sig/Raudel Route Start Time Stop Time Status Last Admin Dose Admin Levofloxacin/Prmx (Levaquin / D5W/ Premixed D5W) 150 ml @ 100 mls/hr Q24H IV 11/08/16 16:00 11/17/16 15:59 11/11/16 16:09 100 MLS/HR Metoprolol Tartrate (Lopressor Iv) 5 mg Q6 PRN IV 11/07/16 16:45 12/07/16 16:44 Acetaminophen (Tylenol Tab) 650 mg Q4H PRN PO 11/07/16 16:45 12/07/16 16:44 Al Hydrox/Mg Hydrox/Simethicone (Maalox Max Susp) 15 ml Q4H PRN PO 11/07/16 16:45 12/07/16 16:44 Ondansetron HCl (Zofran Inj) 4 mg Q6H PRN IV 11/07/16 16:45 12/07/16 16:44 Nitroglycerin (Nitrostat Tab) 0.4 mg UD PRN SL 11/07/16 16:45 12/07/16 16:44 Polyethylene (Miralax Powder Packet) 17 gm DAILY PRN PO 11/07/16 16:45 12/07/16 16:44 Insulin Aspart (novoLOG ASPART) SLIDING SCALE G... ACHS SC 11/07/16 21:00 12/07/16 20:59 11/11/16 20:11 7 UNITS Aspirin (Ecotrin Tab) 81 mg QAM PO 11/08/16 09:00 12/08/16 08:59 11/11/16 08:11 81 MG Atorvastatin Calcium (Lipitor Tab) 40 mg QAM PO 11/08/16 09:00 12/08/16 08:59 11/11/16 08:11 40 MG Doxazosin Mesylate (Cardura Tab) 2 mg QAM PO 11/08/16 09:00 12/08/16 08:59 11/11/16 08:12 2 MG Metoprolol Succinate (Toprol Xl Tab) 50 mg QAM PO 11/08/16 09:00 12/08/16 08:59 11/11/16 08:13 50 MG Lorazepam (Ativan Inj) 1 mg Q4H PRN IV 11/07/16 17:00 12/07/16 16:59 Glucose (Glucose 40% Gel) 15-30 GRAMS 15 GRAMS... UD PRN PO 11/07/16 17:15 12/07/16 17:14 Glucose (Glucose Chew Tab) 4-8 Tablets 4 Tabl... UD PRN PO 11/07/16 17:15 12/07/16 17:14 Dextrose (Dextrose 50% 50ML Syringe) 25-50ML OF 50% DW IV FOR... UD PRN IV 11/07/16 17:15 12/07/16 17:14 Glucagon (Glucagon Inj) 1 mg UD PRN SQ 11/07/16 17:15 12/07/16 17:14 Levofloxacin 1 ea 1 ea UD PRN N/A 11/07/16 21:45 12/07/16 21:44 Thiamine HCl 200 mg/Sodium Chloride 52 ml @ 208 mls/hr BID IV 11/08/16 09:00 12/08/16 08:59 11/11/16 20:13 208 MLS/HR Folic Acid/Syringe (Folvite Inj/ Syringe) 10 ml @ 5 mls/min QAM IV 11/08/16 09:00 12/08/16 08:59 11/11/16 08:10 5 MLS/MIN Lorazepam 1 mg 1 mg ONE PRN PO 11/08/16 10:15 12/08/16 10:14 Piperacillin Sod/ Tazobactam Sod/ Dextrose (Zosyn Iv/D5 100ml) 115 ml @ 28.75 mls/ hr Q8H IV 11/08/16 17:00 11/15/16 16:59 11/12/16 01:05 28.75 MLS/HR Piperacillin Sod/ Tazobactam Sod (Consult) 1 ea UD PRN N/A 11/08/16 10:45 12/08/16 10:44 Pantoprazole Sodium (Protonix Tab) 40 mg QAM PO 11/09/16 09:00 12/09/16 08:59 11/11/16 08:13 40 MG Magnesium Oxide (Mag-Ox Tab) 400 mg BID PO 11/09/16 21:00 2/21/17 20:59 11/11/16 20:05 400 MG Insulin Glargine 10 unit 10 unit HS SC 11/09/16 21:00 12/09/16 20:59 11/11/16 20:12 10 UNIT Methylprednisolone Sodium Succinate/ Syringe (Solu-Medrol IV/ Syringe) 0.96 ml @ 1.5 mls/min Q6H IV 11/10/16 08:00 12/10/16 07:59 11/12/16 01:06 1.5 MLS/MIN Docusate Sodium (coLACE CAP) 100 mg BID PO 11/10/16 21:00 12/10/16 20:59 11/11/16 20:05 100 MG Magnesium Hydroxide (Milk Of Magnesia Susp) 30 ml Q6H PRN PO 11/11/16 10:15 12/11/16 10:14 Enoxaparin Sodium (Lovenox Inj) 90 mg Q12 SQ 11/12/16 09:00 12/12/16 08:59 I & O: 24-Hour Column 11/12/16 08:00 Intake Total 3017 ml Output Total 3600 ml Balance -583 ml Vital Signs: Date Time Temp Pulse Resp B/P Pulse Ox O2 Delivery O2 Flow Rate FiO2 11/12/16 06:01 69 18 147/90 94 11/12/16 05:42 71 94 40 11/12/16 04:01 36.5 67 22 154/95 96 11/12/16 04:00 73 27 97 11/12/16 04:00 94 BiPAP 60 11/12/16 03:59 70 21 154/95 96 11/12/16 02:01 75 20 138/92 93 11/12/16 01:50 78 94 40 11/12/16 01:10 65 25 138/92 94 11/12/16 00:01 36.7 79 19 95 BiPAP 60 11/11/16 23:59 94 BiPAP 60 11/11/16 23:04 74 96 40 11/11/16 21:04 156/91 11/11/16 20:29 36.5 79 26 94 High Flow Oxygen 45.0 60 11/11/16 20:00 High Flow Oxygen 45.0 60 11/11/16 18:00 36.6 75 20 134/69 92 High Flow Oxygen 45.0 60 11/11/16 16:00 36.8 80 20 121/65 93 High Flow Oxygen 45.0 60 11/11/16 16:00 High Flow Oxygen 45.0 60 11/11/16 14:00 75 20 103/59 94 High Flow Oxygen 45.0 60 11/11/16 13:28 92 11/11/16 12:00 High Flow Oxygen 45.0 60 11/11/16 12:00 36.8 82 22 96/64 92 High Flow Oxygen 45.0 60 11/11/16 10:00 80 18 109/75 91 High Flow Oxygen 45.0 60 Laboratory Results: Last 24 Hours Test 11/11/16 09:30 11/11/16 16:06 11/11/16 18:04 11/11/16 20:04 White Blood Count 18.05 K/uL Red Blood Count 4.01 M/uL Hemoglobin 12.9 g/dL Hematocrit 37.1 % Mean Corpuscular Volume 92.5 fL Mean Corpuscular Hemoglobin 32.2 pg Mean Corpuscular Hemoglobin Concent 34.8 g/dl Platelet Count 294 K/uL Mean Platelet Volume 9.4 fL Neutrophils (%) (Auto) 87.6 % Lymphocytes (%) (Auto) 8.2 % Monocytes (%) (Auto) 3.5 % Eosinophils (%) (Auto) 0.0 % Basophils (%) (Auto) 0.1 % Neutrophils # (Auto) 15.83 K/uL Lymphocytes # (Auto) 1.48 K/uL Monocytes # (Auto) 0.63 K/uL Eosinophils # (Auto) 0.00 K/uL Basophils # (Auto) 0.01 K/uL RDW Standard Deviation 42.0 fL RDW Coefficient of Variation 12.4 % Immature Granulocyte % (Auto) 0.6 % Immature Granulocyte # (Auto) 0.10 K/uL Sodium Level 139 mmol/L Potassium Level 4.0 mmol/L Chloride Level 102 mmol/L Carbon Dioxide Level 29 mmol/L Anion Gap 8.0 mmol/L Blood Urea Nitrogen 25 mg/dl Creatinine 0.99 mg/dl Est Creatinine Clear Calc Drug Dose 73.9 ml/min Estimated GFR () 87.2 Estimated GFR (Non- 75.2 BUN/Creatinine Ratio 25.0 Random Glucose 268 mg/dl Calcium Level 9.3 mg/dl Bedside Glucose 272 mg/dl 320 mg/dl Activated Partial Thromboplast Time 57.0 SECONDS Partial Thromboplastin Ratio 2.2 Test 11/12/16 05:07 11/12/16 06:27 11/12/16 08:29 Activated Partial Thromboplast Time 61.9 SECONDS Partial Thromboplastin Ratio 2.4 Bedside Glucose 207 mg/dl White Blood Count 20.67 K/uL Red Blood Count 4.14 M/uL Hemoglobin 13.3 g/dL Hematocrit 38.1 % Mean Corpuscular Volume 92.0 fL Mean Corpuscular Hemoglobin 32.1 pg Mean Corpuscular Hemoglobin Concent 34.9 g/dl Platelet Count 283 K/uL Mean Platelet Volume 9.5 fL Neutrophils (%) (Auto) 85.9 % Lymphocytes (%) (Auto) 7.4 % Monocytes (%) (Auto) 5.5 % Eosinophils (%) (Auto) 0.0 % Basophils (%) (Auto) 0.0 % Neutrophils # (Auto) 17.76 K/uL Lymphocytes # (Auto) 1.53 K/uL Monocytes # (Auto) 1.13 K/uL Eosinophils # (Auto) 0.00 K/uL Basophils # (Auto) 0.01 K/uL RDW Standard Deviation 41.7 fL RDW Coefficient of Variation 12.3 % Immature Granulocyte % (Auto) 1.2 % Immature Granulocyte # (Auto) 0.24 K/uL Sodium Level 137 mmol/L Potassium Level 4.1 mmol/L Chloride Level 100 mmol/L Carbon Dioxide Level 25 mmol/L Anion Gap 12.0 mmol/L Blood Urea Nitrogen 22 mg/dl Creatinine 1.10 mg/dl Est Creatinine Clear Calc Drug Dose 66.7 ml/min Estimated GFR () 76.8 Estimated GFR (Non- 66.2 BUN/Creatinine Ratio 20.1 Random Glucose 301 mg/dl Calcium Level 9.2 mg/dl Beta-Hydroxybutyric Acid 1.31 mg/dL
--- NOTE | 2016-11-12 10:46 | DIAGNOSTIC IMAGING REPORT ---
CHEST ONE VIEW PORTABLE CLINICAL HISTORY: Residual lung disease. Pneumonia. POST BIOPSY. COMPARISON STUDY: No previous studies for comparison. FINDINGS: The heart is enlarged. There are bilateral interstitial opacity similar to the prior study. No pneumothorax is visualized. There are no significant pleural effusions.[ IMPRESSION: Stable bilateral interstitial opacities. No evidence of pneumothorax. Electronically signed by: John Katz M.D. 11/12/2016 10:44 AM Dictated Date/Time: 11/12/2016 10:44 AM
--- NOTE | 2016-11-12 13:45 | Progress Note ---
Subjective Date of Service: Nov 12, 2016. Subjective pt has no complaints states he thinks he feels improved, still coughing with deep breaths Problem List Medical Problems: (1) Hypoxia Status: Acute (2) New onset atrial fibrillation Status: Acute (3) Pneumonia Status: Acute Review of Systems Constitutional: No chills, No fever, No weakness Respiratory: + cough, + dyspnea at rest, + shortness of breath, + sputum, + wheezing Cardiac: No chest pain, No edema Abdomen: + nausea, + pain, + vomiting Objective Vital Signs Date Time Temp Pulse Resp B/P Pulse Ox O2 Delivery O2 Flow Rate FiO2 11/12/16 06:01 69 18 147/90 94 11/12/16 05:42 71 94 40 11/12/16 04:01 36.5 67 22 154/95 96 11/12/16 04:00 73 27 97 11/12/16 04:00 94 BiPAP 60 11/12/16 03:59 70 21 154/95 96 11/12/16 02:01 75 20 138/92 93 11/12/16 01:50 78 94 40 11/12/16 01:10 65 25 138/92 94 11/12/16 00:01 36.7 79 19 95 BiPAP 60 11/11/16 23:59 94 BiPAP 60 11/11/16 23:04 74 96 40 11/11/16 21:04 156/91 11/11/16 20:29 36.5 79 26 94 High Flow Oxygen 45.0 60 11/11/16 20:00 High Flow Oxygen 45.0 60 11/11/16 18:00 36.6 75 20 134/69 92 High Flow Oxygen 45.0 60 11/11/16 16:00 36.8 80 20 121/65 93 High Flow Oxygen 45.0 60 11/11/16 16:00 High Flow Oxygen 45.0 60 11/11/16 14:00 75 20 103/59 94 High Flow Oxygen 45.0 60 11/11/16 13:28 92 11/11/16 12:00 High Flow Oxygen 45.0 60 11/11/16 12:00 36.8 82 22 96/64 92 High Flow Oxygen 45.0 60 11/11/16 10:00 80 18 109/75 91 High Flow Oxygen 45.0 60 Physical Exam General Appearance: WD/WN, + moderate distress Neck: supple, no JVD Respiratory/Chest: + decreased breath sounds, + accessory muscle use, + rales Cardiovascular: regular rate, rhythm, + systolic murmur Abdomen: normal bowel sounds, non tender, soft Extremities: no pedal edema, no calf tenderness Neurologic/Psychiatric: alert, oriented x 3 Laboratory Results Last 24 Hours Test 11/11/16 09:30 11/11/16 16:06 11/11/16 18:04 11/11/16 20:04 White Blood Count 18.05 K/uL Red Blood Count 4.01 M/uL Hemoglobin 12.9 g/dL Hematocrit 37.1 % Mean Corpuscular Volume 92.5 fL Mean Corpuscular Hemoglobin 32.2 pg Mean Corpuscular Hemoglobin Concent 34.8 g/dl Platelet Count 294 K/uL Mean Platelet Volume 9.4 fL Neutrophils (%) (Auto) 87.6 % Lymphocytes (%) (Auto) 8.2 % Monocytes (%) (Auto) 3.5 % Eosinophils (%) (Auto) 0.0 % Basophils (%) (Auto) 0.1 % Neutrophils # (Auto) 15.83 K/uL Lymphocytes # (Auto) 1.48 K/uL Monocytes # (Auto) 0.63 K/uL Eosinophils # (Auto) 0.00 K/uL Basophils # (Auto) 0.01 K/uL RDW Standard Deviation 42.0 fL RDW Coefficient of Variation 12.4 % Immature Granulocyte % (Auto) 0.6 % Immature Granulocyte # (Auto) 0.10 K/uL Sodium Level 139 mmol/L Potassium Level 4.0 mmol/L Chloride Level 102 mmol/L Carbon Dioxide Level 29 mmol/L Anion Gap 8.0 mmol/L Blood Urea Nitrogen 25 mg/dl Creatinine 0.99 mg/dl Est Creatinine Clear Calc Drug Dose 73.9 ml/min Estimated GFR () 87.2 Estimated GFR (Non- 75.2 BUN/Creatinine Ratio 25.0 Random Glucose 268 mg/dl Calcium Level 9.3 mg/dl Bedside Glucose 272 mg/dl 320 mg/dl Activated Partial Thromboplast Time 57.0 SECONDS Partial Thromboplastin Ratio 2.2 Test 11/12/16 05:07 11/12/16 06:27 11/12/16 08:29 Activated Partial Thromboplast Time 61.9 SECONDS Partial Thromboplastin Ratio 2.4 Bedside Glucose 207 mg/dl White Blood Count 20.67 K/uL Red Blood Count 4.14 M/uL Hemoglobin 13.3 g/dL Hematocrit 38.1 % Mean Corpuscular Volume 92.0 fL Mean Corpuscular Hemoglobin 32.1 pg Mean Corpuscular Hemoglobin Concent 34.9 g/dl Platelet Count 283 K/uL Mean Platelet Volume 9.5 fL Neutrophils (%) (Auto) 85.9 % Lymphocytes (%) (Auto) 7.4 % Monocytes (%) (Auto) 5.5 % Eosinophils (%) (Auto) 0.0 % Basophils (%) (Auto) 0.0 % Neutrophils # (Auto) 17.76 K/uL Lymphocytes # (Auto) 1.53 K/uL Monocytes # (Auto) 1.13 K/uL Eosinophils # (Auto) 0.00 K/uL Basophils # (Auto) 0.01 K/uL RDW Standard Deviation 41.7 fL RDW Coefficient of Variation 12.3 % Immature Granulocyte % (Auto) 1.2 % Immature Granulocyte # (Auto) 0.24 K/uL Assessment and Plan 71 M with acute hypoxic respiratory failure secondary to interstitial lung disease,inital concern for pneumonia and acute diastolic heart failure with acute kidney failure and new onset afib. History of alcohol use with abnormal liver function serology. No real changes still awaiting steroids vs lung biopsy acute hypoxic respiratory failure Flu PCR negative x 2, MRSA swab negative.Mycoplasma titers, urine for legionella antigen - pending. working diagnosis for inflammatory or interstitial lung disease, if no improvement with steroids may consider lung biopsy, Dr oneill has seen pt Zosyn/ levaquin. acute diastolic CHF - lasix new-onset a. fib - heparin drip will not convert as potential upcoming procedure. Rates controlled with BB. ECHO with preserved EF. acute kidney injury - resolved. alcoholism - risk of withdrawal. Remains on preventive alcohol withdrawal protocol HepB/C titers negative. T2DM -lantus 10 units HS; cont novolog ac/hs. DVT proph - heparin drip. BPH - stein in place; continue doxazosin. Continued [facility] stay due to: multiple IV medications needed, other (resp failure )
--- NOTE | 2016-11-12 14:46 | SURGERY PROGRESS NOTE ---
DATE: 11/12/2016 DATE: 11/12/2016. Mr. Anderson is seen today on 11/12/2016. He is receiving steroids and quite frankly Mr. Anderson looks better. He is up ambulating in the hallway with supplemental oxygen. His AA gradient is better, he is down to 4 liters with good saturations. He states he feels better too. At this point, he appears to be responding to the steroids, at least clinically. His chest x-ray really has not changed. I will continue to follow along, although it appears to me that we may forego the lung biopsy at the present time.
[2016-11-12] MEDS: LEVOFLOXACIN / D5W 750 MG in PREMIXED IN D5W 150 ML IV SCH (16:05)
[2016-11-12] MEDS ORDERED: INSULIN GLARGINE SOLOSTAR 100 UNITS/ML 3 ML PEN SC SCH (21:00)
[2016-11-12] MEDS: INSULIN GLARGINE SOLOSTAR 100 UNITS/ML 3 ML PEN SC SCH (21:35)
[2016-11-13] VITALS (19 sets, daily range): BP systolic 116–142; BP diastolic 61–87; PULSE 65–85; TEMP 36.3–36.8; O2SAT 88–94
[2016-11-13] MEDS: METHYLPREDNISOLONE IV 60 MG in SYRINGE 0 ML IV SCH ×2 (01:35→07:43)
[2016-11-13] MEDS: PIPERACILL/TAZOBAC IV 3.375 GM in DEXTROSE 5% 100ML 100 ML IV SCH ×3 (01:36→16:43)
[2016-11-13 06:10] LABS: BASO % 0.2 %; BASO ABS # 0.03 K/uL (0-0.2); COMPLETE YES; EOS % 0.1 %; IG% 1.8 %; LYMPH % 8.1 %; LYMPH ABS # 1.56 K/uL (1.2-3.4); MEAN CELL VOLUME 92.2 fL (80-100); MEAN CORPUSCULAR HGB CONC 35.8 g/dl (32-36); MEAN PLATELET VOLUME 9.7 fL (7.4-10.4); MONO % 5.5 %; NEUT % 84.3 %; PLATELET COUNT 293 K/uL (130-400); RED BLOOD COUNT 4.12 M/uL (4.7-6.1); WHITE BLOOD COUNT 19.16 K/uL (4.8-10.8)
[2016-11-13 06:42] LABS: BUN/CREATININE RATIO 28.3 (10-20); CALCIUM 9.4 mg/dl (8.5-10.1); CREATININE 0.89 mg/dl (0.60-1.40); POTASSIUM 4.1 mmol/L (3.5-5.1)
[2016-11-13] MEDS: INSULIN ASPART 100 UNITS/ML 3 ML PEN SC SCH ×4 (07:42→20:55)
[2016-11-13] MEDS: FoLIC ACID INJ 1 MG in SYRINGE 9.8 ML IV SCH (07:43)
[2016-11-13] MEDS: THIAMINE HCL INJ 200 MG in SODIUM CHLORIDE 0.9% 50ML 50 ML IV SCH ×2 (07:45→21:03)
[2016-11-13] MEDS: MAGNESIUM OXIDE 400 MG TAB PO SCH ×2 (08:40→20:56)
[2016-11-13] MEDS: PANTOprazole SOD 40 MG TAB PO SCH (08:40)
[2016-11-13] MEDS: DOCUSATE SODIUM 100 MG CAP PO SCH ×2 (08:41→20:57)
[2016-11-13] MEDS: DOXAZosin MESYLATE TAB 2 MG TAB PO SCH (08:41)
[2016-11-13] MEDS: ASPIRIN 81 MG ECTAB PO SCH (08:41)
[2016-11-13] MEDS: METOPROLOL SUCC 50MG EXT REL TAB PO SCH (08:41)
[2016-11-13] MEDS: ATORVASTATIN 40 MG TAB PO SCH (08:41)
[2016-11-13] MEDS: ENOXAPARIN 100 MG/1ML SYR SQ SCH ×2 (08:42→21:00)
--- NOTE | 2016-11-13 10:01 | SURGERY PROGRESS NOTE ---
DATE: 11/13/2016 SUBJECTIVE: Mr. Anderson is seen today on 11/13/2016. His A-a gradient has improved and he is on nasal cannula. He is ambulating in the hallway. His x-ray looks better. He sounds better. I discussed this with Dr. Garcia and we are going to set him up for a more elective biopsy, possibly in the next week.
--- NOTE | 2016-11-13 10:17 | Critical Care Progress Note ---
Critical Care Progress Note Date of Service Nov 13, 2016. Attending Dr. Garcia Subjective ambulatory yesterday, off the high flow O2, tolerated the Bipap nocturnally. Objective General Appearance: well-appearing, WD/WN, no apparent distress Head: normocephalic, atraumatic Eyes: PERRLA, no discharge ENT: normal Neck: normal range of motion, no tenderness, trachea midline Respiratory: Left lung is clear, Right lung has crackles at the LL, no wheezing Cardiovascular: irregularly irregular rhythm, rate controlled. Abdomen: non tender, normal bowel sounds, no rebound Genitourinary - Male: s/p stein removal Neuro: alert, oriented x 3, normal motor exam, normal sensation remains with dyspnea on exersion. no pain . no edema, afib rate controlled. Assessment & Plan #1 ILD of [place] etiology, steroids responsive. #2 new onset a fib, rate controlled. #3 possible pneumonia. Plan: #1 given his response to steroids, will change to oral prednisone 40 mg bid. #2 if no biopsy is planned anymore, the pt can be changed to Eliquis or equivalent orally. #3 dc Abx , the pt finished 7 days abx treatment for pneumonia. #4 ambulate. #5 continue Bipap at night and O2 day time. #[address] Tipton. Data Medications: Current Inpatient Medications Medications (Trade) Dose Ordered Sig/Raudel Route Start Time Stop Time Status Last Admin Dose Admin Levofloxacin/Prmx (Levaquin / D5W/ Premixed D5W) 150 ml @ 100 mls/hr Q24H IV 11/08/16 16:00 11/14/16 15:59 11/12/16 16:05 100 MLS/HR Metoprolol Tartrate (Lopressor Iv) 5 mg Q6 PRN IV 11/07/16 16:45 12/07/16 16:44 Acetaminophen (Tylenol Tab) 650 mg Q4H PRN PO 11/07/16 16:45 12/07/16 16:44 Al Hydrox/Mg Hydrox/Simethicone (Maalox Max Susp) 15 ml Q4H PRN PO 11/07/16 16:45 12/07/16 16:44 Ondansetron HCl (Zofran Inj) 4 mg Q6H PRN IV 11/07/16 16:45 12/07/16 16:44 Nitroglycerin (Nitrostat Tab) 0.4 mg UD PRN SL 11/07/16 16:45 12/07/16 16:44 Polyethylene (Miralax Powder Packet) 17 gm DAILY PRN PO 11/07/16 16:45 12/07/16 16:44 Insulin Aspart (novoLOG ASPART) SLIDING SCALE G... ACHS SC 11/07/16 21:00 11/13/16 07:42 4 UNITS Aspirin (Ecotrin Tab) 81 mg QAM PO 11/08/16 09:00 12/08/16 08:59 11/13/16 08:41 81 MG Atorvastatin Calcium (Lipitor Tab) 40 mg QAM PO 11/08/16 09:00 12/08/16 08:59 11/13/16 08:41 40 MG Doxazosin Mesylate (Cardura Tab) 2 mg QAM PO 11/08/16 09:00 12/08/16 08:59 11/13/16 08:41 2 MG Metoprolol Succinate (Toprol Xl Tab) 50 mg QAM PO 11/08/16 09:00 12/08/16 08:59 11/13/16 08:41 50 MG Lorazepam (Ativan Inj) 1 mg Q4H PRN IV 11/07/16 17:00 12/07/16 16:59 Glucose (Glucose 40% Gel) 15-30 GRAMS 15 GRAMS... UD PRN PO 11/07/16 17:15 12/07/16 17:14 Glucose (Glucose Chew Tab) 4-8 Tablets 4 Tabl... UD PRN PO 11/07/16 17:15 12/07/16 17:14 Dextrose (Dextrose 50% 50ML Syringe) 25-50ML OF 50% DW IV FOR... UD PRN IV 11/07/16 17:15 12/07/16 17:14 Glucagon (Glucagon Inj) 1 mg UD PRN SQ 11/07/16 17:15 12/07/16 17:14 Levofloxacin 1 ea 1 ea UD PRN N/A 11/07/16 21:45 12/07/16 21:44 Thiamine HCl 200 mg/Sodium Chloride 52 ml @ 208 mls/hr BID IV 11/08/16 09:00 12/08/16 08:59 11/13/16 07:45 208 MLS/HR Folic Acid/Syringe (Folvite Inj/ Syringe) 10 ml @ 5 mls/min QAM IV 11/08/16 09:00 12/08/16 08:59 11/13/16 07:43 5 MLS/MIN Lorazepam 1 mg 1 mg ONE PRN PO 11/08/16 10:15 12/08/16 10:14 Piperacillin Sod/ Tazobactam Sod/ Dextrose (Zosyn Iv/D5 100ml) 115 ml @ 28.75 mls/ hr Q8H IV 11/08/16 17:00 11/15/16 16:59 11/13/16 07:45 28.75 MLS/HR Piperacillin Sod/ Tazobactam Sod (Consult) 1 ea UD PRN N/A 11/08/16 10:45 12/08/16 10:44 Pantoprazole Sodium (Protonix Tab) 40 mg QAM PO 11/09/16 09:00 12/09/16 08:59 11/13/16 08:40 40 MG Magnesium Oxide 400 mg 400 mg BID PO 11/09/16 21:00 12/09/16 20:59 11/13/16 08:40 400 MG Methylprednisolone Sodium Succinate/ Syringe (Solu-Medrol IV/ Syringe) 0.96 ml @ 1.5 mls/min Q6H IV 11/10/16 08:00 12/10/16 07:59 11/13/16 07:43 1.5 MLS/MIN Docusate Sodium (coLACE CAP) 100 mg BID PO 11/10/16 21:00 12/10/16 20:59 11/12/16 09:20 100 MG Magnesium Hydroxide (Milk Of Magnesia Susp) 30 ml Q6H PRN PO 11/11/16 10:15 12/11/16 10:14 Enoxaparin Sodium (Lovenox Inj) 90 mg Q12 SQ 11/12/16 09:00 12/12/16 08:59 11/13/16 08:42 90 MG Insulin Glargine (Lantus Solostar Pen) 20 unit HS SC 11/12/16 21:00 12/12/16 20:59 11/12/16 21:35 20 UNIT I & O: 24-Hour Column 11/13/16 08:00 Intake Total 1810 ml Output Total 1475 ml Balance 335 ml Vital Signs: Date Time Temp Pulse Resp B/P Pulse Ox O2 Delivery O2 Flow Rate FiO2 11/13/16 08:00 Nasal Cannula 11/13/16 05:24 68 93 40 11/13/16 04:00 BiPAP 11/13/16 03:59 36.3 65 22 141/82 92 BiPAP 11/13/16 02:10 69 92 40 11/12/16 23:59 70 27 140/81 97 BiPAP 11/12/16 23:59 BiPAP 11/12/16 23:59 36.3 11/12/16 23:13 81 94 40 11/12/16 21:58 77 24 144/103 91 11/12/16 21:14 71 21 131/91 90 11/12/16 20:00 91 Nasal Cannula 6.0 11/12/16 19:59 36.4 82 28 90 11/12/16 16:00 90 Nasal Cannula 6.0 60 11/12/16 14:00 36.8 77 26 135/72 9 Nasal Cannula 6.0 80 11/12/16 12:00 36.8 80 21 137/73 92 Nasal Cannula 4.0 80 11/12/16 12:00 92 Nasal Cannula 4.0 S1s2 afib. crackles with sound like wheezing on the right base. likely from traction bronchiectasis. abdomen is benign. cce. neuro is intact. Laboratory Results: Last 24 Hours Test 11/12/16 11:08 11/12/16 16:00 11/12/16 21:18 11/13/16 05:50 Bedside Glucose 252 mg/dl 218 mg/dl 216 mg/dl White Blood Count 19.16 K/uL Red Blood Count 4.12 M/uL Hemoglobin 13.6 g/dL Hematocrit 38.0 % Mean Corpuscular Volume 92.2 fL Mean Corpuscular Hemoglobin 33.0 pg Mean Corpuscular Hemoglobin Concent 35.8 g/dl Platelet Count 293 K/uL Mean Platelet Volume 9.7 fL Neutrophils (%) (Auto) 84.3 % Lymphocytes (%) (Auto) 8.1 % Monocytes (%) (Auto) 5.5 % Eosinophils (%) (Auto) 0.1 % Basophils (%) (Auto) 0.2 % Neutrophils # (Auto) 16.17 K/uL Lymphocytes # (Auto) 1.56 K/uL Monocytes # (Auto) 1.05 K/uL Eosinophils # (Auto) 0.01 K/uL Basophils # (Auto) 0.03 K/uL RDW Standard Deviation 42.5 fL RDW Coefficient of Variation 12.5 % Immature Granulocyte % (Auto) 1.8 % Immature Granulocyte # (Auto) 0.34 K/uL Sodium Level 139 mmol/L Potassium Level 4.1 mmol/L Chloride Level 102 mmol/L Carbon Dioxide Level 28 mmol/L Anion Gap 9.0 mmol/L Blood Urea Nitrogen 25 mg/dl Creatinine 0.89 mg/dl Est Creatinine Clear Calc Drug Dose 82.4 ml/min Estimated GFR () 98.3 Estimated GFR (Non- 84.8 BUN/Creatinine Ratio 28.3 Random Glucose 187 mg/dl Calcium Level 9.4 mg/dl Test 11/13/16 06:28 Bedside Glucose 159 mg/dl
--- NOTE | 2016-11-13 11:43 | Progress Note ---
Subjective Date of Service: Nov 13, 2016. Subjective pt looks and feels better, has had ability to get off high flow oxygen, is on 6 liters and doing well, otherwise no complaints Problem List Medical Problems: (1) Hypoxia Status: Acute (2) New onset atrial fibrillation Status: Acute (3) Pneumonia Status: Acute Review of Systems Constitutional: + fatigue, + weakness, No chills, No fever Respiratory: + cough, + dyspnea on exertion, + shortness of breath Cardiac: No chest pain, No edema Abdomen: No nausea, No pain, No vomiting Male : No dysuria, No urinary frequency Psychiatric: No anhedonism, No depression symptoms Objective Vital Signs Date Time Temp Pulse Resp B/P Pulse Ox O2 Delivery O2 Flow Rate FiO2 11/13/16 05:24 68 93 40 11/13/16 04:00 BiPAP 11/13/16 03:59 36.3 65 22 141/82 92 BiPAP 11/13/16 02:10 69 92 40 11/12/16 23:59 70 27 140/81 97 BiPAP 11/12/16 23:59 BiPAP 11/12/16 23:59 36.3 11/12/16 23:13 81 94 40 11/12/16 21:58 77 24 144/103 91 11/12/16 21:14 71 21 131/91 90 11/12/16 20:00 91 Nasal Cannula 6.0 11/12/16 19:59 36.4 82 28 90 11/12/16 16:00 90 Nasal Cannula 6.0 60 11/12/16 14:00 36.8 77 26 135/72 9 Nasal Cannula 6.0 80 11/12/16 12:00 36.8 80 21 137/73 92 Nasal Cannula 4.0 80 11/12/16 12:00 92 Nasal Cannula 4.0 Physical Exam General Appearance: WD/WN, + mild distress Neck: supple, no JVD Respiratory/Chest: + decreased breath sounds, + accessory muscle use, + rales Cardiovascular: regular rate, rhythm, no murmur Abdomen: normal bowel sounds, non tender, soft Extremities: no pedal edema, no calf tenderness Laboratory Results Last 24 Hours Test 11/12/16 08:29 11/12/16 11:08 11/12/16 16:00 11/12/16 21:18 White Blood Count 20.67 K/uL Red Blood Count 4.14 M/uL Hemoglobin 13.3 g/dL Hematocrit 38.1 % Mean Corpuscular Volume 92.0 fL Mean Corpuscular Hemoglobin 32.1 pg Mean Corpuscular Hemoglobin Concent 34.9 g/dl Platelet Count 283 K/uL Mean Platelet Volume 9.5 fL Neutrophils (%) (Auto) 85.9 % Lymphocytes (%) (Auto) 7.4 % Monocytes (%) (Auto) 5.5 % Eosinophils (%) (Auto) 0.0 % Basophils (%) (Auto) 0.0 % Neutrophils # (Auto) 17.76 K/uL Lymphocytes # (Auto) 1.53 K/uL Monocytes # (Auto) 1.13 K/uL Eosinophils # (Auto) 0.00 K/uL Basophils # (Auto) 0.01 K/uL RDW Standard Deviation 41.7 fL RDW Coefficient of Variation 12.3 % Immature Granulocyte % (Auto) 1.2 % Immature Granulocyte # (Auto) 0.24 K/uL Sodium Level 137 mmol/L Potassium Level 4.1 mmol/L Chloride Level 100 mmol/L Carbon Dioxide Level 25 mmol/L Anion Gap 12.0 mmol/L Blood Urea Nitrogen 22 mg/dl Creatinine 1.10 mg/dl Est Creatinine Clear Calc Drug Dose 66.7 ml/min Estimated GFR () 76.8 Estimated GFR (Non- 66.2 BUN/Creatinine Ratio 20.1 Random Glucose 301 mg/dl Calcium Level 9.2 mg/dl Beta-Hydroxybutyric Acid 1.31 mg/dL Bedside Glucose 252 mg/dl 218 mg/dl 216 mg/dl Test 11/13/16 05:50 11/13/16 06:28 White Blood Count 19.16 K/uL Red Blood Count 4.12 M/uL Hemoglobin 13.6 g/dL Hematocrit 38.0 % Mean Corpuscular Volume 92.2 fL Mean Corpuscular Hemoglobin 33.0 pg Mean Corpuscular Hemoglobin Concent 35.8 g/dl Platelet Count 293 K/uL Mean Platelet Volume 9.7 fL Neutrophils (%) (Auto) 84.3 % Lymphocytes (%) (Auto) 8.1 % Monocytes (%) (Auto) 5.5 % Eosinophils (%) (Auto) 0.1 % Basophils (%) (Auto) 0.2 % Neutrophils # (Auto) 16.17 K/uL Lymphocytes # (Auto) 1.56 K/uL Monocytes # (Auto) 1.05 K/uL Eosinophils # (Auto) 0.01 K/uL Basophils # (Auto) 0.03 K/uL RDW Standard Deviation 42.5 fL RDW Coefficient of Variation 12.5 % Immature Granulocyte % (Auto) 1.8 % Immature Granulocyte # (Auto) 0.34 K/uL Sodium Level 139 mmol/L Potassium Level 4.1 mmol/L Chloride Level 102 mmol/L Carbon Dioxide Level 28 mmol/L Anion Gap 9.0 mmol/L Blood Urea Nitrogen 25 mg/dl Creatinine 0.89 mg/dl Est Creatinine Clear Calc Drug Dose 82.4 ml/min Estimated GFR () 98.3 Estimated GFR (Non- 84.8 BUN/Creatinine Ratio 28.3 Random Glucose 187 mg/dl Calcium Level 9.4 mg/dl Bedside Glucose 159 mg/dl Assessment and Plan 71 M with acute hypoxic respiratory failure secondary to interstitial lung disease,inital concern for pneumonia and acute diastolic heart failure but now looking more like inflammatory lung disease, also with acute kidney failure and new onset afib. History of alcohol use with abnormal liver function serology. acute hypoxic respiratory failure Flu PCR negative x 2, MRSA swab negative.Mycoplasma titers, urine for legionella antigen - pending. working diagnosis for inflammatory or interstitial lung disease, has improved and may consider lung biopsy in future for diagnosis , Dr oneill has seen pt Zosyn/ levaquin for one week. acute diastolic CHF - lasix new-onset a. fib - heparin drip convert to coumadin. Rates controlled with BB. ECHO with preserved EF. acute kidney injury - resolved. alcoholism - risk of withdrawal. Remains on preventive alcohol withdrawal protocol HepB/C titers negative. T2DM -lantus 10 units HS; cont novolog ac/hs. DVT proph - enoxaparin BPH - doxazosin. Continued [facility] stay due to: multiple IV medications needed, other (resp failure )
[2016-11-13] MEDS: LEVOFLOXACIN / D5W 750 MG in PREMIXED IN D5W 150 ML IV SCH (15:14)
[2016-11-13] MEDS: WARFARIN SOD 5 MG TAB PO SCH (15:19)
[2016-11-13] MEDS: INSULIN GLARGINE SOLOSTAR 100 UNITS/ML 3 ML PEN SC SCH (20:55)
[2016-11-14] VITALS (7 sets, daily range): BP systolic 96–143; BP diastolic 63–79; PULSE 3–82; TEMP 36.3–36.9; O2SAT 90–95; BMI 32.3
[2016-11-14] MEDS: PIPERACILL/TAZOBAC IV 3.375 GM in DEXTROSE 5% 100ML 100 ML IV SCH ×3 (00:49→16:48)
[2016-11-14 05:27] LABS: BASO % 0.2 %; BASO ABS # 0.03 K/uL (0-0.2); COMPLETE YES; EOS % 0.1 %; HEMATOCRIT 38.3 % (42-52); IG% 2.3 %; LYMPH % 11.5 %; LYMPH ABS # 1.99 K/uL (1.2-3.4); MEAN CELL VOLUME 92.1 fL (80-100); MEAN CORPUSCULAR HEMOGLOBIN 31.3 pg (25-34); MEAN CORPUSCULAR HGB CONC 33.9 g/dl (32-36); MEAN PLATELET VOLUME 9.8 fL (7.4-10.4); MONO % 8.2 %; NEUT % 77.7 %; PLATELET COUNT 270 K/uL (130-400); RED BLOOD COUNT 4.16 M/uL (4.7-6.1); WHITE BLOOD COUNT 17.37 K/uL (4.8-10.8)
[2016-11-14 05:33] LABS: INR 1.3 (0.9-1.1); PROTHROMBIN TIME (PATIENT) 13.7 SECONDS (9.0-12.0)
[2016-11-14 05:51] LABS: BUN/CREATININE RATIO 26.8 (10-20); CREATININE 0.92 mg/dl (0.60-1.40); POTASSIUM 4.2 mmol/L (3.5-5.1)
[2016-11-14] MEDS: INSULIN ASPART 100 UNITS/ML 3 ML PEN SC SCH ×4 (06:45→21:15)
--- NOTE | 2016-11-14 08:45 | Critical Care Progress Note ---
Critical Care Progress Note Date of Service Nov 14, 2016. Attending Dr. Garcia Subjective no sob overnight, ambulatory and using the NC at 5 LPM. Objective General Appearance: well-appearing, WD/WN, no apparent distress Head: normocephalic, atraumatic Eyes: PERRLA, no discharge ENT: normal Neck: normal range of motion, no tenderness, trachea midline Respiratory: Left lung is clear, Right lung has crackles at the LL, no wheezing Cardiovascular: irregularly irregular rhythm, rate controlled. Abdomen: non tender, normal bowel sounds, no rebound Genitourinary - Male: s/p stein removal Neuro: alert, oriented x 3, normal motor exam, normal sensation remains with dyspnea on exersion. no pain . no edema, afib rate controlled. 11/14....denies sob , no chest pain, occasional cough, no palpitation or near syncope. Assessment & Plan ILD, UK etiology. afib, rate controlled on anticoagx. hx of alcoholism but no evidence of withdrawal. hypoxia secondary to the above. Plan: 1- continue prednisone 40 mg bid, no rules on how to taper steroids in ILD, following [facility] protocol, I would taper as follows: Prednisone 40 mg bid for 2 weeks then 20 mg bid for 2 weeks, then 20 mg daily for 2 weeks then 10 mg daily on going until clinical and radiological improvement been documented while tapering the steroids. 2- repeat chest ct in 4 weeks to assure improvement. 3- expect rebound as tapering steroids, if so, increase the dose again and re- taper slower. 4- serology work up can be helpful but most of the time does not make a diagnosis in the absence of other symptoms ( arthralgia, skin rash, renal dysfunction...etc). 5- continue treatment for afib. 6- given his prolonged hospital stay and the need for oxygen , bipap at night and NOAC, I believe the pt will be better transferred to a rehab for a period of time prior to return to home. he has been ambulatory and cleared by rehab and he lives with his who is the same age. thank you for letting me participate in the care of this pt. discussed in details on rounds with the staff. Data Medications: Current Inpatient Medications Medications (Trade) Dose Ordered Sig/Raudel Route Start Time Stop Time Status Last Admin Dose Admin Levofloxacin/Prmx (Levaquin / D5W/ Premixed D5W) 150 ml @ 100 mls/hr Q24H IV 11/08/16 16:00 11/14/16 15:59 11/13/16 15:14 100 MLS/HR Metoprolol Tartrate (Lopressor Iv) 5 mg Q6 PRN IV 11/07/16 16:45 12/07/16 16:44 Acetaminophen (Tylenol Tab) 650 mg Q4H PRN PO 11/07/16 16:45 12/07/16 16:44 Al Hydrox/Mg Hydrox/Simethicone (Maalox Max Susp) 15 ml Q4H PRN PO 11/07/16 16:45 12/07/16 16:44 Ondansetron HCl (Zofran Inj) 4 mg Q6H PRN IV 11/07/16 16:45 12/07/16 16:44 Nitroglycerin (Nitrostat Tab) 0.4 mg UD PRN SL 11/07/16 16:45 12/07/16 16:44 Polyethylene (Miralax Powder Packet) 17 gm DAILY PRN PO 11/07/16 16:45 12/07/16 16:44 Insulin Aspart (novoLOG ASPART) SLIDING SCALE G... ACHS SC 11/07/16 21:00 12/07/16 20:59 11/13/16 20:55 3 UNITS Aspirin (Ecotrin Tab) 81 mg QAM PO 11/08/16 09:00 12/08/16 08:59 11/13/16 08:41 81 MG Atorvastatin Calcium (Lipitor Tab) 40 mg QAM PO 11/08/16 09:00 12/08/16 08:59 11/13/16 08:41 40 MG Doxazosin Mesylate (Cardura Tab) 2 mg QAM PO 11/08/16 09:00 12/08/16 08:59 11/13/16 08:41 2 MG Metoprolol Succinate (Toprol Xl Tab) 50 mg QAM PO 11/08/16 09:00 12/08/16 08:59 11/13/16 08:41 50 MG Lorazepam (Ativan Inj) 1 mg Q4H PRN IV 11/07/16 17:00 12/07/16 16:59 Glucose (Glucose 40% Gel) 15-30 GRAMS 15 GRAMS... UD PRN PO 11/07/16 17:15 12/07/16 17:14 Glucose (Glucose Chew Tab) 4-8 Tablets 4 Tabl... UD PRN PO 11/07/16 17:15 12/07/16 17:14 Dextrose (Dextrose 50% 50ML Syringe) 25-50ML OF 50% DW IV FOR... UD PRN IV 11/07/16 17:15 12/07/16 17:14 Glucagon (Glucagon Inj) 1 mg UD PRN SQ 11/07/16 17:15 12/07/16 17:14 Levofloxacin (Consult) 1 ea UD PRN N/A 11/07/16 21:45 11/14/16 15:59 Lorazepam 1 mg 1 mg ONE PRN PO 11/08/16 10:15 12/08/16 10:14 Piperacillin Sod/ Tazobactam Sod/ Dextrose (Zosyn Iv/D5 100ml) 115 ml @ 28.75 mls/ hr Q8H IV 11/08/16 17:00 11/15/16 16:59 11/14/16 00:49 28.75 MLS/HR Piperacillin Sod/ Tazobactam Sod (Consult) 1 ea UD PRN N/A 11/08/16 10:45 11/15/16 16:59 Pantoprazole Sodium (Protonix Tab) 40 mg QAM PO 11/09/16 09:00 12/09/16 08:59 11/13/16 08:40 40 MG Magnesium Oxide (Mag-Ox Tab) 400 mg BID PO 11/09/16 21:00 12/09/16 20:59 11/13/16 20:56 400 MG Docusate Sodium (coLACE CAP) 100 mg BID PO 11/10/16 21:00 12/10/16 20:59 11/12/16 09:20 100 MG Magnesium Hydroxide (Milk Of Magnesia Susp) 30 ml Q6H PRN PO 11/11/16 10:15 12/11/16 10:14 Enoxaparin Sodium (Lovenox Inj) 90 mg Q12 SQ 11/12/16 09:00 12/12/16 08:59 11/13/16 21:00 90 MG Insulin Glargine (Lantus Solostar Pen) 20 unit HS SC 11/12/16 21:00 12/12/16 20:59 11/13/16 20:55 20 UNIT Prednisone (PredniSONE TAB) 40 mg BID PO 11/13/16 21:00 12/13/16 20:59 11/13/16 20:57 40 MG Warfarin Sodium (Coumadin Tab) 5 mg DAILY@16 PO 11/13/16 16:00 12/13/16 15:59 11/13/16 15:19 5 MG Folic Acid (Folvite Tab) 1 mg QAM PO 11/14/16 09:00 12/14/16 08:59 Thiamine HCl (Vitamin B-1 Tab) 200 mg BID PO 11/14/16 09:00 12/14/16 08:59 I & O: 24-Hour Column 11/14/16 07:59 Intake Total 1630 ml Output Total 3075 ml Balance -1445 ml Vital Signs: Date Time Temp Pulse Resp B/P Pulse Ox O2 Delivery O2 Flow Rate FiO2 11/14/16 05:46 64 93 40 11/14/16 04:00 BiPAP 40 11/14/16 04:00 36.7 73 20 143/79 92 BiPAP 40 11/14/16 02:22 64 92 40 11/13/16 23:59 BiPAP 40 11/13/16 23:59 36.6 75 20 135/87 93 BiPAP 40 11/13/16 22:36 78 91 40 11/13/16 20:00 36.8 85 20 142/81 88 Nasal Cannula 5.0 11/13/16 20:00 Nasal Cannula 5.0 11/13/16 18:00 83 25 90 11/13/16 17:00 81 32 93 11/13/16 16:17 78 19 139/77 88 11/13/16 16:00 75 23 91 11/13/16 15:03 Nasal Cannula 11/13/16 15:00 77 19 93 11/13/16 14:08 91 11/13/16 14:00 77 18 92 11/13/16 13:00 76 26 89 11/13/16 12:00 80 17 91 11/13/16 11:44 75 27 116/61 94 11/13/16 11:33 Nasal Cannula 11/13/16 10:00 72 26 124/77 92 Nasal Cannula 6.0 69 11/13/16 10:00 75 26 93 11/13/16 09:00 76 32 94 S1S2 afib. crackles bilaterally. abdomen is benign. CCE. neuro is intact, no tremor. Laboratory Results: Last 24 Hours Test 11/13/16 11:08 11/13/16 15:23 11/13/16 20:50 11/14/16 05:05 Bedside Glucose 257 mg/dl 258 mg/dl 193 mg/dl White Blood Count 17.37 K/uL Red Blood Count 4.16 M/uL Hemoglobin 13.0 g/dL Hematocrit 38.3 % Mean Corpuscular Volume 92.1 fL Mean Corpuscular Hemoglobin 31.3 pg Mean Corpuscular Hemoglobin Concent 33.9 g/dl Platelet Count 270 K/uL Mean Platelet Volume 9.8 fL Neutrophils (%) (Auto) 77.7 % Lymphocytes (%) (Auto) 11.5 % Monocytes (%) (Auto) 8.2 % Eosinophils (%) (Auto) 0.1 % Basophils (%) (Auto) 0.2 % Neutrophils # (Auto) 13.50 K/uL Lymphocytes # (Auto) 1.99 K/uL Monocytes # (Auto) 1.43 K/uL Eosinophils # (Auto) 0.02 K/uL Basophils # (Auto) 0.03 K/uL RDW Standard Deviation 42.2 fL RDW Coefficient of Variation 12.6 % Immature Granulocyte % (Auto) 2.3 % Immature Granulocyte # (Auto) 0.40 K/uL Nucleated RBC Absolute Count (auto) 0.02 K/uL Nucleated Red Blood Cells % 0.1 % Prothrombin Time 13.7 SECONDS Prothromb Time International Ratio 1.3 Sodium Level 141 mmol/L Potassium Level 4.2 mmol/L Chloride Level 104 mmol/L Carbon Dioxide Level 30 mmol/L Anion Gap 7.0 mmol/L Blood Urea Nitrogen 25 mg/dl Creatinine 0.92 mg/dl Est Creatinine Clear Calc Drug Dose 81.7 ml/min Estimated GFR () 95.3 Estimated GFR (Non- 82.2 BUN/Creatinine Ratio 26.8 Random Glucose 155 mg/dl Calcium Level 9.0 mg/dl
--- NOTE | 2016-11-14 08:46 | Surgery Progress Note ---
Subjective Date of Service: Nov 14, 2016. Pt. notes breathing has improved. He has been ambulating in hallway on nasal canula. Objective Vitals Date Time Temp Pulse Resp B/P Pulse Ox O2 Delivery O2 Flow Rate FiO2 11/14/16 05:46 64 93 40 11/14/16 04:00 BiPAP 40 11/14/16 04:00 36.7 73 20 143/79 92 BiPAP 40 11/14/16 02:22 64 92 40 11/13/16 23:59 BiPAP 40 11/13/16 23:59 36.6 75 20 135/87 93 BiPAP 40 11/13/16 22:36 78 91 40 11/13/16 20:00 36.8 85 20 142/81 88 Nasal Cannula 5.0 11/13/16 20:00 Nasal Cannula 5.0 11/13/16 18:00 83 25 90 11/13/16 17:00 81 32 93 11/13/16 16:17 78 19 139/77 88 11/13/16 16:00 75 23 91 11/13/16 15:03 Nasal Cannula 11/13/16 15:00 77 19 93 11/13/16 14:08 91 11/13/16 14:00 77 18 92 11/13/16 13:00 76 26 89 11/13/16 12:00 80 17 91 11/13/16 11:44 75 27 116/61 94 11/13/16 11:33 Nasal Cannula 11/13/16 10:00 72 26 124/77 92 Nasal Cannula 6.0 69 11/13/16 10:00 75 26 93 11/13/16 09:00 76 32 94 Physical Exam General: + well developed, + well nourished CV: + IRR Pulmonary: + pertinent finding (decreased at bases), No respiratory distress Assessment & Plan 71 year old male with interstitial lung disease -pt. improving, requiring less oxygen -continue steroids as directed by pulmonary -discussed with community organization worker: -after d/c pt. to see thoracic surgery in [address] scan of chest -consideration of lung bx. will depend on clinical status
[2016-11-14] MEDS: DOXAZosin MESYLATE TAB 2 MG TAB PO SCH (09:40)
[2016-11-14] MEDS: DOCUSATE SODIUM 100 MG CAP PO SCH ×2 (09:41→21:10)
[2016-11-14] MEDS: ASPIRIN 81 MG ECTAB PO SCH (09:41)
[2016-11-14] MEDS: ATORVASTATIN 40 MG TAB PO SCH (09:41)
[2016-11-14] MEDS: MAGNESIUM OXIDE 400 MG TAB PO SCH ×2 (09:42→21:11)
[2016-11-14] MEDS: METOPROLOL SUCC 50MG EXT REL TAB PO SCH (09:43)
[2016-11-14] MEDS: PANTOprazole SOD 40 MG TAB PO SCH (09:43)
[2016-11-14] MEDS: ENOXAPARIN 100 MG/1ML SYR SQ SCH ×2 (09:44→21:13)
[2016-11-14] MEDS: THIAMINE HCL 100 MG TAB PO SCH ×2 (09:44→21:12)
--- NOTE | 2016-11-14 10:45 | Pharmacy Progress Note ---
Glycemic Control: Initial Note Date of Service Nov 14, 2016. Scope Glycemic Pharmacist to provide recommendations to improve glycemic control (all ICU patients are screened for hyperglycemia and treatment recommendations are provided per protocol). Pt identified with hyperglycemia (BSG above 180) while [place] [facility] [place] Subjective The patient is a 71 year old male admitted on Nov 07, 2016 at 16:41 for Acute Respiratory Failure With Hypoxia. Patient's past medical history IS significant for diabetes mellitus. Objective Height (Feet): 5 Height (Inches): 8.00 Weight (Kilograms): 96.400 Accuchecks BSG (last 24hrs): Test 11/13/16 11:08 11/13/16 15:23 11/13/16 20:50 11/14/16 05:05 Bedside Glucose 257 mg/dl (70-99) 258 mg/dl (70-99) 193 mg/dl (70-99) Random Glucose 155 mg/dl (70-99) Laboratory Data (last 24hrs) Test 11/14/16 05:05 Anion Gap 7.0 mmol/L BUN/Creatinine Ratio 26.8 Blood Urea Nitrogen 25 mg/dl Creatinine 0.92 mg/dl Potassium Level 4.2 mmol/L Sodium Level 141 mmol/L White Blood Count 17.37 K/uL Red Blood Count 4.16 M/uL Hemoglobin 13.0 g/dL Hematocrit 38.3 % Mean Corpuscular Volume 92.1 fL Mean Corpuscular Hemoglobin 31.3 pg Mean Corpuscular Hemoglobin Concent 33.9 g/dl Platelet Count 270 K/uL Mean Platelet Volume 9.8 fL Neutrophils (%) (Auto) 77.7 % Lymphocytes (%) (Auto) 11.5 % Monocytes (%) (Auto) 8.2 % Eosinophils (%) (Auto) 0.1 % Basophils (%) (Auto) 0.2 % Neutrophils # (Auto) 13.50 K/uL Lymphocytes # (Auto) 1.99 K/uL Monocytes # (Auto) 1.43 K/uL Eosinophils # (Auto) 0.02 K/uL Basophils # (Auto) 0.03 K/uL Recent Pertinent Medications Outpatient Anti-diabetic Regimen: * Metformin 500mg PO QAM * HbA1c: 6.1% (11/06/16) The patient is currently receiving: * Basal Insulin: Lantus 20 units SQ QHS * Correctional Insulin: Novolog Correction per scale ACHS Goal Range: Low 120 mg/dL - High 150 mg/dL Correction Factor: 20 mg/dL/unit * Prandial Insulin: Per carb ratio of 1 unit per 20 grams CHO consumed Risk Factors for Insulin Resistance: * Steroids: SoluMedrol 60mg IV q6h --> prednisone 40mg PO BID * Infection: LVQ/Zosyn for ?pneumonia -- 7 days of therapy * Diet: Low sodium/AHA Assessment & Plan ASSESSMENT: * Patient is a 71yo diabetic male, treated with oral diabetic agents as an outpatient. Patient's recent A1c indicates that glycemic control is reasonable. * Patient has been experiencing some significant steroid-induced hyperglycemia during admission. Patient's Lantus dose has been titrated up to a daily dose of 20 units. Patient has also required quite a bit of correctional insulin coverage with Novolog (27 units 11/13, 30 units 11/12). * Steroids have been significantly decreased in the past 24 hours (SoluMedrol 60mg IV q6h --> Prednisone 40mg PO BID). Expect that insulin requirements may decrease accordingly, but it is too early to observe. * senior health educator has been consulted to see patient prior to discharge. RECOMMENDATIONS FOR DISCHARGE: * Plan is to discharge on Prednisone slow taper. * Consider NPH insulin during steroid use. * NPH administration at the time of prednisone doses (NPH twice daily while prednisone dosed BID, NPH once daily when prednisone reduced to once daily, etc. ). When steroid doses are reduced, reduce the dose of NPH accordingly. * It is difficult to recommend specific doses at this time, as patient's insulin needs on oral prednisone are not yet apparent. * Given recent insulin use, might be reasonable to consider NPH 10 units BID with prednisone 40mg PO BID, with adjustments made as steroid dosing tapers? * Resume outpatient oral diabetes medications Physicians may request pharmacy to continue to follow patient when transferred out of the ICU and/or consult pharmacy to write glycemic control orders * Please note that the plan above was derived based on current level of insulin resistance and hospital stress. These recommendations are appropriate for inpatient admission only. Plan of care upon discharge will need to be reassessed to avoid potential outpatient hypo/hyperglycemia. Thank you.
--- NOTE | 2016-11-14 10:59 | Progress Note ---
Subjective Date of Service: Nov 14, 2016. Subjective this pt is looking better each day but still with significant oxygen requirements, will have tested for home bipap Problem List Medical Problems: (1) Hypoxia Status: Acute (2) New onset atrial fibrillation Status: Acute (3) Pneumonia Status: Acute Review of Systems Constitutional: No chills, No fever, No weakness Respiratory: + cough, + dyspnea on exertion, + shortness of breath Cardiac: No chest pain, No edema Abdomen: No diarrhea, No nausea, No pain, No vomiting Neurologic: + weakness, No memory loss Objective Vital Signs Date Time Temp Pulse Resp B/P Pulse Ox O2 Delivery O2 Flow Rate FiO2 11/14/16 08:00 91 Nasal Cannula 5.0 11/14/16 08:00 36.4 71 16 143/79 91 Nasal Cannula 5.0 71 11/14/16 05:46 64 93 40 11/14/16 04:00 BiPAP 40 11/14/16 04:00 36.7 73 20 143/79 92 BiPAP 40 11/14/16 02:22 64 92 40 11/13/16 23:59 BiPAP 40 11/13/16 23:59 36.6 75 20 135/87 93 BiPAP 40 11/13/16 22:36 78 91 40 11/13/16 20:00 36.8 85 20 142/81 88 Nasal Cannula 5.0 11/13/16 20:00 Nasal Cannula 5.0 11/13/16 18:00 83 25 90 11/13/16 17:00 81 32 93 11/13/16 16:17 78 19 139/77 88 11/13/16 16:00 75 23 91 11/13/16 15:03 Nasal Cannula 11/13/16 15:00 77 19 93 11/13/16 14:08 91 11/13/16 14:00 77 18 92 11/13/16 13:00 76 26 89 11/13/16 12:00 80 17 91 11/13/16 11:44 75 27 116/61 94 11/13/16 11:33 Nasal Cannula Physical Exam General Appearance: WD/WN, + mild distress Neck: supple, thyroid normal Respiratory/Chest: + respiratory distress, + decreased breath sounds, + accessory muscle use, + rales Cardiovascular: regular rate, rhythm, no murmur Abdomen: normal bowel sounds, non tender, soft Extremities: no pedal edema, no calf tenderness Laboratory Results Last 24 Hours Test 11/13/16 11:08 11/13/16 15:23 11/13/16 20:50 11/14/16 05:05 Bedside Glucose 257 mg/dl 258 mg/dl 193 mg/dl White Blood Count 17.37 K/uL Red Blood Count 4.16 M/uL Hemoglobin 13.0 g/dL Hematocrit 38.3 % Mean Corpuscular Volume 92.1 fL Mean Corpuscular Hemoglobin 31.3 pg Mean Corpuscular Hemoglobin Concent 33.9 g/dl Platelet Count 270 K/uL Mean Platelet Volume 9.8 fL Neutrophils (%) (Auto) 77.7 % Lymphocytes (%) (Auto) 11.5 % Monocytes (%) (Auto) 8.2 % Eosinophils (%) (Auto) 0.1 % Basophils (%) (Auto) 0.2 % Neutrophils # (Auto) 13.50 K/uL Lymphocytes # (Auto) 1.99 K/uL Monocytes # (Auto) 1.43 K/uL Eosinophils # (Auto) 0.02 K/uL Basophils # (Auto) 0.03 K/uL RDW Standard Deviation 42.2 fL RDW Coefficient of Variation 12.6 % Immature Granulocyte % (Auto) 2.3 % Immature Granulocyte # (Auto) 0.40 K/uL Nucleated RBC Absolute Count (auto) 0.02 K/uL Nucleated Red Blood Cells % 0.1 % Prothrombin Time 13.7 SECONDS Prothromb Time International Ratio 1.3 Sodium Level 141 mmol/L Potassium Level 4.2 mmol/L Chloride Level 104 mmol/L Carbon Dioxide Level 30 mmol/L Anion Gap 7.0 mmol/L Blood Urea Nitrogen 25 mg/dl Creatinine 0.92 mg/dl Est Creatinine Clear Calc Drug Dose 81.7 ml/min Estimated GFR () 95.3 Estimated GFR (Non- 82.2 BUN/Creatinine Ratio 26.8 Random Glucose 155 mg/dl Calcium Level 9.0 mg/dl Assessment and Plan 71 M with acute hypoxic respiratory failure secondary to interstitial lung disease,inital concern for pneumonia and acute diastolic heart failure with acute kidney failure and new onset afib. History of alcohol use with abnormal liver function serology. Course and improvement have suggested this be inflammatory lung disease, not yet fibrosis acute hypoxic respiratory failure Flu PCR negative x 2, MRSA swab negative.Mycoplasma titers, urine for legionella antigen - pending. working diagnosis for inflammatory or interstitial lung disease, will complete one week of Zosyn/ levaquin. Will complete long slow taper of steroids, 40 bid for two weeks, then 40 daily for two weeks, 30 daiily for two weeks , 20 for two weeks, 10 for two weeks acute diastolic CHF - lasix new-onset a. fib - heparin drip convert to coumadin. Rates controlled with BB. ECHO with preserved EF. acute kidney injury - resolved. alcoholism - risk of withdrawal. Remains on preventive alcohol withdrawal protocol HepB/C titers negative. T2DM -lantus 10 units HS; cont novolog ac/hs. Diabetic education to help while tapering steroids DVT proph - enoxaparin BPH - doxazosin. Continued [facility] stay due to: multiple IV medications needed, other (resp failure )
[2016-11-14] MEDS: WARFARIN SOD 5 MG TAB PO SCH (16:48)
[2016-11-14] MEDS: INSULIN GLARGINE SOLOSTAR 100 UNITS/ML 3 ML PEN SC SCH (21:16)
[2016-11-15] MEDS: PIPERACILL/TAZOBAC IV 3.375 GM in DEXTROSE 5% 100ML 100 ML IV SCH ×2 (01:33→09:33)
[2016-11-15 04:02] VITALS: O2SAT 93
[2016-11-15 06:05] LABS: BASO % 0.3 %; BASO ABS # 0.04 K/uL (0-0.2); COMPLETE YES; EOS % 0.1 %; HEMATOCRIT 40.2 % (42-52); IG% 4.3 %; LYMPH ABS # 1.72 K/uL (1.2-3.4); MEAN CELL VOLUME 93.1 fL (80-100); MEAN CORPUSCULAR HEMOGLOBIN 31.3 pg (25-34); MEAN CORPUSCULAR HGB CONC 33.6 g/dl (32-36); MEAN PLATELET VOLUME 10.1 fL (7.4-10.4); MONO % 6.5 %; NEUT % 77.8 %; PLATELET COUNT 260 K/uL (130-400); RED BLOOD COUNT 4.32 M/uL (4.7-6.1); WHITE BLOOD COUNT 15.67 K/uL (4.8-10.8)
[2016-11-15 06:11] LABS: INR 1.4 (0.9-1.1); PROTHROMBIN TIME (PATIENT) 14.8 SECONDS (9.0-12.0)
[2016-11-15 06:39] LABS: BUN/CREATININE RATIO 24.7 (10-20); CREATININE 0.89 mg/dl (0.60-1.40); POTASSIUM 4.5 mmol/L (3.5-5.1)
[2016-11-15 07:11] LABS: ALLEN TEST POS (POS); ARTERIAL BLD GAS O2 SATURATION 91.4 % (90-95); ARTERIAL BLOOD GAS BASE EXCESS 3.9 mEq/L (-9-1.8); ARTERIAL BLOOD GAS HCO3 27 mmol/L (19-24); ARTERIAL BLOOD GAS PO2 59 mm/Hg (80-95); O2 ADMINISTRATION ROOM AIR
--- NOTE | 2016-11-15 07:16 | Surgery Progress Note ---
Subjective Date of Service: Nov 15, 2016. Pt. notes his breathing continues to improve. No issues reported today. Objective Vitals Date Time Temp Pulse Resp B/P Pulse Ox O2 Delivery O2 Flow Rate FiO2 11/15/16 04:02 93 Nasal Cannula 3.0 Humidified Oxygen 11/14/16 23:39 36.6 67 18 127/79 92 Nasal Cannula 2.0 Humidified Oxygen 11/14/16 14:12 36.3 20 96/63 90 Nasal Cannula 5.0 11/14/16 12:20 36.9 82 20 95 11/14/16 08:00 91 Nasal Cannula 5.0 11/14/16 08:00 36.4 71 16 143/79 91 Nasal Cannula 5.0 71 Physical Exam General: + well developed, + well nourished CV: + RRR Pulmonary: No accessory muscle use, No respiratory distress Extremities: No calf tenderness Neurologic: + alert & oriented x 3 Assessment & Plan 71 year old male with interstitial lung disease -pt. continues to improve, requiring less oxygen -continue steroids as directed by pulmonary: -long taper planned at time of d/c -discussed with copyright expert on (11/14/16): -after d/c pt. to see thoracic surgery in [address] scan of chest -consideration of lung bx. will depend on clinical status
[2016-11-15 07:31] VITALS: BP 124/82; PULSE 74; TEMP 36.3; O2SAT 91
[2016-11-15] MEDS: ATORVASTATIN 40 MG TAB PO SCH (08:26)
[2016-11-15] MEDS: ASPIRIN 81 MG ECTAB PO SCH (08:27)
[2016-11-15] MEDS: METOPROLOL SUCC 50MG EXT REL TAB PO SCH (08:27)
[2016-11-15] MEDS: DOXAZosin MESYLATE TAB 2 MG TAB PO SCH (08:27)
[2016-11-15] MEDS: PANTOprazole SOD 40 MG TAB PO SCH (08:27)
[2016-11-15] MEDS: DOCUSATE SODIUM 100 MG CAP PO SCH ×2 (08:27→20:32)
[2016-11-15] MEDS: MAGNESIUM OXIDE 400 MG TAB PO SCH ×2 (08:27→20:32)
[2016-11-15] MEDS: THIAMINE HCL 100 MG TAB PO SCH (08:28)
[2016-11-15] MEDS: ENOXAPARIN 100 MG/1ML SYR SQ SCH ×2 (08:28→20:32)
[2016-11-15] MEDS: INSULIN ASPART 100 UNITS/ML 3 ML PEN SC SCH ×4 (08:33→20:35)
--- NOTE | 2016-11-15 13:21 | PULMONARY PROGRESS NOTE ---
DATE: 11/15/2016 TIME: 12:45 p.m. SUBJECTIVE: The patient is feeling dramatically better. His work of breathing is much easier. He is much less short of breath than he had been a few days ago. His cough is much less. The patient is now out of ICU. His appetite is excellent. He basically has no specific complaints. OBJECTIVE: GENERAL: The patient appeared very comfortable. HEENT: Unremarkable. NECK: Palpation in the neck reveals no lymph nodes. HEART: Heart rate was 74 per minute. The rhythm was irregular. Blood pressure 124/82. LUNGS: Respiratory rate 20 breaths per minute. Lung cornell revealed very mild rales posteriorly. These have decreased compared with my prior exam from a few days earlier. Oxygen saturation was 91% on 4 liters. EXTREMITIES: Showed trace edema of both lower extremities near the sock line. LABORATORY DATA: The patient had an arterial blood gas today showing a pH of 7.50 with a pCO2 of 36 and pO2 of 59 on room air. Electrolytes show sodium 141, potassium 4.5, chloride 105, bicarb 29. Fasting blood sugar 103 and at 11:00 a.m. was 207. The patient's last chest x-ray was done on November 12 and it was unchanged and showing bilateral interstitial infiltrates. ASSESSMENT: 1. Acute respiratory failure with hypoxia -- much improved. 2. Acute interstitial pneumonitis. 3. Positive PPD by history. COMMENTS AND RECOMMENDATIONS: The patient seems to be doing extremely well. The steroids have had a definite positive effect for him. This would correlate with his history of being sick only a very short period of time. The patient does relate that his tells him he stops breathing when he sleeps. He should have a sleep study as an outpatient. The prednisone can be tapered back gradually. He will ultimately need followup with his x-rays, etc. It should be noted that the patient gives a history of a positive PPD. I do not believe he ever had prophylactic therapy in all likelihood. Thus, the steroids do put him at risk for activation of tuberculosis. This should just be kept in mind in the event he has further respiratory illnesses or infiltrates.
--- NOTE | 2016-11-15 13:39 | Progress Note ---
Subjective Date of Service: Nov 15, 2016. Subjective pt has no concerns able to taper oxygen to 4 liters, still looking forward to rehab Problem List Medical Problems: (1) Hypoxia Status: Acute (2) New onset atrial fibrillation Status: Acute (3) Pneumonia Status: Acute Review of Systems Constitutional: No chills, No fatigue, No fever, No weakness Respiratory: + dyspnea on exertion, + shortness of breath, No cough Cardiac: No chest pain, No edema Abdomen: No diarrhea, No nausea, No pain Male : No dysuria, No urinary frequency Objective Vital Signs Date Time Temp Pulse Resp B/P Pulse Ox O2 Delivery O2 Flow Rate FiO2 11/15/16 07:31 36.3 74 22 124/82 91 Nasal Cannula 4.0 11/15/16 04:02 93 Nasal Cannula 3.0 Humidified Oxygen 11/14/16 23:39 36.6 67 18 127/79 92 Nasal Cannula 2.0 Humidified Oxygen 11/14/16 14:12 36.3 20 96/63 90 Nasal Cannula 5.0 11/14/16 12:20 36.9 82 20 95 Physical Exam General Appearance: WD/WN, + mild distress Neck: supple, thyroid normal Respiratory/Chest: + decreased breath sounds, + accessory muscle use, + rales Cardiovascular: regular rate, rhythm, no murmur Abdomen: normal bowel sounds, non tender, soft Extremities: no pedal edema, no calf tenderness Laboratory Results Last 24 Hours Test 11/14/16 16:14 11/14/16 20:20 11/15/16 05:20 11/15/16 06:50 Bedside Glucose 267 mg/dl 207 mg/dl White Blood Count 15.67 K/uL Red Blood Count 4.32 M/uL Hemoglobin 13.5 g/dL Hematocrit 40.2 % Mean Corpuscular Volume 93.1 fL Mean Corpuscular Hemoglobin 31.3 pg Mean Corpuscular Hemoglobin Concent 33.6 g/dl Platelet Count 260 K/uL Mean Platelet Volume 10.1 fL Neutrophils (%) (Auto) 77.8 % Lymphocytes (%) (Auto) 11.0 % Monocytes (%) (Auto) 6.5 % Eosinophils (%) (Auto) 0.1 % Basophils (%) (Auto) 0.3 % Neutrophils # (Auto) 12.19 K/uL Lymphocytes # (Auto) 1.72 K/uL Monocytes # (Auto) 1.02 K/uL Eosinophils # (Auto) 0.02 K/uL Basophils # (Auto) 0.04 K/uL RDW Standard Deviation 43.3 fL RDW Coefficient of Variation 12.7 % Immature Granulocyte % (Auto) 4.3 % Immature Granulocyte # (Auto) 0.68 K/uL Prothrombin Time 14.8 SECONDS Prothromb Time International Ratio 1.4 Sodium Level 141 mmol/L Potassium Level 4.5 mmol/L Chloride Level 105 mmol/L Carbon Dioxide Level 29 mmol/L Anion Gap 7.0 mmol/L Blood Urea Nitrogen 22 mg/dl Creatinine 0.89 mg/dl Est Creatinine Clear Calc Drug Dose 83.2 ml/min Estimated GFR () 98.3 Estimated GFR (Non- 84.8 BUN/Creatinine Ratio 24.7 Random Glucose 151 mg/dl Calcium Level 9.0 mg/dl Arterial Blood pH 7.50 Arterial Blood Partial Pressure CO2 36 mmHg Arterial Blood Partial Pressure O2 59 mm/Hg Arterial Blood HCO3 27 mmol/L Arterial Blood Oxygen Saturation 91.4 % Arterial Blood Base Excess 3.9 mEq/L Arterial Blood Gas Delivery ROOM AIR Denilson Test POS Assessment and Plan 71 M with acute hypoxic respiratory failure secondary to interstitial lung disease,inital concern for pneumonia and acute diastolic heart failure but now looking more like inflammatory lung disease, also with acute kidney failure and new onset afib. History of alcohol use acute hypoxic respiratory failure , improved with steroids Flu PCR negative x 2, MRSA swab negative.Mycoplasma titers, urine for legionella antigen - pending. working diagnosis for inflammatory or interstitial lung disease, has improved and may consider lung biopsy in future for diagnosis , Dr oneill has seen pt Zosyn/ levaquin completed one week of treatment REcommendation to treat as ipf with long slow steroid taper acute diastolic CHF - lasix new-onset a. fib - heparin drip convert to coumadin. Rates controlled with BB. ECHO with preserved EF. acute kidney injury - resolved. alcoholism - past risk of withdrawal. T2DM -lantus plus ssi DVT proph - enoxaparin BPH - doxazosin. Continued [facility] stay due to: multiple IV medications needed, other (resp failure )
[2016-11-15 15:40] VITALS: BP 112/70; PULSE 82; TEMP 36.5; O2SAT 93
[2016-11-15] MEDS: WARFARIN SOD 5 MG TAB PO SCH (15:45)
[2016-11-15] MEDS: INSULIN GLARGINE SOLOSTAR 100 UNITS/ML 3 ML PEN SC SCH (20:35)
[2016-11-16 00:14] VITALS: BP 121/68; PULSE 78; TEMP 36.4; O2SAT 90
[2016-11-16 06:37] LABS: BASO % 0.2 %; BASO ABS # 0.03 K/uL (0-0.2); COMPLETE YES; EOS % 0.4 %; HEMATOCRIT 38.8 % (42-52); IG% 3.9 %; LYMPH % 11.8 %; LYMPH ABS # 1.94 K/uL (1.2-3.4); MEAN CELL VOLUME 91.5 fL (80-100); MEAN CORPUSCULAR HEMOGLOBIN 31.4 pg (25-34); MEAN CORPUSCULAR HGB CONC 34.3 g/dl (32-36); MEAN PLATELET VOLUME 10.2 fL (7.4-10.4); MONO % 5.7 %; PLATELET COUNT 236 K/uL (130-400); RED BLOOD COUNT 4.24 M/uL (4.7-6.1)
--- NOTE | 2016-11-16 06:54 | Surgery Progress Note ---
Subjective Date of Service: Nov 16, 2016. Pt. resting comfortable, he notes his breathing continues to improve. Objective Vitals Date Time Temp Pulse Resp B/P Pulse Ox O2 Delivery O2 Flow Rate FiO2 11/16/16 00:14 36.4 78 16 121/68 90 4.0 11/15/16 23:59 Nasal Cannula 4.0 11/15/16 20:00 Nasal Cannula 4.0 11/15/16 15:40 36.5 82 20 112/70 93 Nasal Cannula 4.0 11/15/16 15:08 Nasal Cannula 4.0 11/15/16 09:28 Nasal Cannula 4.0 11/15/16 07:31 36.3 74 22 124/82 91 Nasal Cannula 4.0 Physical Exam General: + well developed, + well nourished CV: + RRR Pulmonary: + lungs clear, No accessory muscle use, No respiratory distress Extremities: No calf tenderness Neurologic: + alert & oriented x 3 Assessment & Plan 71 year old male with interstitial lung disease -significant clinical improvement noted since initiation of steroids -continue steroids as directed by pulmonary: -long taper planned at time of d/c -discussed with crew leader on (11/14/16): -after d/c pt. to see thoracic surgery in [address] scan of chest -consideration of lung bx. will depend on clinical status
[2016-11-16 07:10] LABS: BUN/CREATININE RATIO 29.4 (10-20); CALCIUM 8.9 mg/dl (8.5-10.1); CREATININE 0.81 mg/dl (0.60-1.40); POTASSIUM 4.2 mmol/L (3.5-5.1)
[2016-11-16 07:43] VITALS: BP 121/76; PULSE 74; TEMP 36.3; O2SAT 95
[2016-11-16] MEDS: DOXAZosin MESYLATE TAB 2 MG TAB PO SCH (08:35)
[2016-11-16] MEDS: MAGNESIUM OXIDE 400 MG TAB PO SCH ×2 (08:35→21:33)
[2016-11-16] MEDS: PANTOprazole SOD 40 MG TAB PO SCH (08:35)
[2016-11-16] MEDS: ASPIRIN 81 MG ECTAB PO SCH (08:36)
[2016-11-16] MEDS: CEROVITE ADV FORMULA TAB PO SCH (08:36)
[2016-11-16] MEDS: ATORVASTATIN 40 MG TAB PO SCH (08:36)
[2016-11-16] MEDS: METOPROLOL SUCC 50MG EXT REL TAB PO SCH (08:37)
[2016-11-16] MEDS: DOCUSATE SODIUM 100 MG CAP PO SCH ×2 (08:37→20:00)
[2016-11-16] MEDS: ENOXAPARIN 100 MG/1ML SYR SQ SCH ×2 (08:38→21:40)
[2016-11-16] MEDS: INSULIN ASPART 100 UNITS/ML 3 ML PEN SC SCH ×4 (09:06→21:37)
--- NOTE | 2016-11-16 11:31 | Progress Note ---
Subjective Date of Service: Nov 16, 2016. Subjective this is doing well, he thinks his can get him to pulmonary rehab as outpt, will need to coordinate home DME such as oxygen and BiPap Problem List Medical Problems: (1) Hypoxia Status: Acute (2) New onset atrial fibrillation Status: Acute (3) Pneumonia Status: Acute Review of Systems Constitutional: No fever Respiratory: + cough, + dyspnea at rest, + dyspnea on exertion, + shortness of breath Cardiac: No chest pain, No edema Abdomen: No diarrhea, No nausea, No pain, No vomiting Male : No dysuria, No urinary frequency Psychiatric: No anhedonism, No depression symptoms Objective Vital Signs Date Time Temp Pulse Resp B/P Pulse Ox O2 Delivery O2 Flow Rate FiO2 11/16/16 07:43 36.3 74 20 121/76 95 Nasal Cannula 4.0 11/16/16 00:14 36.4 78 16 121/68 90 4.0 11/15/16 23:59 Nasal Cannula 4.0 11/15/16 20:00 Nasal Cannula 4.0 11/15/16 15:40 36.5 82 20 112/70 93 Nasal Cannula 4.0 11/15/16 15:08 Nasal Cannula 4.0 11/15/16 09:28 Nasal Cannula 4.0 Physical Exam General Appearance: WD/WN, no apparent distress Neck: supple, no JVD Respiratory/Chest: + respiratory distress, + decreased breath sounds, + accessory muscle use, + rales Cardiovascular: regular rate, rhythm, + systolic murmur Abdomen: normal bowel sounds, non tender, soft Extremities: no pedal edema, no calf tenderness Neurologic/Psychiatric: alert, oriented x 3 Laboratory Results Last 24 Hours Test 11/15/16 11:20 11/15/16 16:39 11/16/16 05:17 Bedside Glucose 207 mg/dl 225 mg/dl White Blood Count 16.50 K/uL Red Blood Count 4.24 M/uL Hemoglobin 13.3 g/dL Hematocrit 38.8 % Mean Corpuscular Volume 91.5 fL Mean Corpuscular Hemoglobin 31.4 pg Mean Corpuscular Hemoglobin Concent 34.3 g/dl Platelet Count 236 K/uL Mean Platelet Volume 10.2 fL Neutrophils (%) (Auto) 78.0 % Lymphocytes (%) (Auto) 11.8 % Monocytes (%) (Auto) 5.7 % Eosinophils (%) (Auto) 0.4 % Basophils (%) (Auto) 0.2 % Neutrophils # (Auto) 12.88 K/uL Lymphocytes # (Auto) 1.94 K/uL Monocytes # (Auto) 0.94 K/uL Eosinophils # (Auto) 0.06 K/uL Basophils # (Auto) 0.03 K/uL RDW Standard Deviation 43.2 fL RDW Coefficient of Variation 13.0 % Immature Granulocyte % (Auto) 3.9 % Immature Granulocyte # (Auto) 0.65 K/uL Sodium Level 139 mmol/L Potassium Level 4.2 mmol/L Chloride Level 103 mmol/L Carbon Dioxide Level 27 mmol/L Anion Gap 9.0 mmol/L Blood Urea Nitrogen 24 mg/dl Creatinine 0.81 mg/dl Est Creatinine Clear Calc Drug Dose 90.3 ml/min Estimated GFR () 102.2 Estimated GFR (Non- 88.2 BUN/Creatinine Ratio 29.4 Random Glucose 165 mg/dl Calcium Level 8.9 mg/dl Assessment and Plan 71 M with acute hypoxic respiratory failure secondary to interstitial lung disease,inital concern for pneumonia and acute diastolic heart failure but now looking more like inflammatory lung disease, also with acute kidney failure and new onset afib. History of alcohol use acute hypoxic respiratory failure , improved with steroids Flu PCR negative x 2, MRSA swab negative.Mycoplasma titers, urine for legionella antigen - pending. working diagnosis for inflammatory or interstitial lung disease, has improved and may consider lung biopsy in future for diagnosis , Dr oneill has seen pt Zosyn/ levaquin completed one week of treatment REcommendation to treat as ipf with long slow steroid taper 40 bid for 2 weeks then 40 daily for 2 weeks, 30 daily for two weeks, 20 daily for 2 weeks the 10 for two weeks will need outpt pulmonary rehab and arrange home oxygen and BiPap, did have nocturnal oximetry and 5 am abg acute diastolic CHF - lasix new-onset a. fib - heparin drip convert to coumadin. Rates controlled with BB. ECHO with preserved EF. acute kidney injury - resolved. alcoholism - past risk of withdrawal. T2DM -lantus plus ssi DVT proph - enoxaparin BPH - doxazosin. Continued [facility] stay due to: multiple IV medications needed, other (resp failure )
[2016-11-16 15:24] VITALS: BP 107/66; PULSE 71; TEMP 36.6; O2SAT 91
[2016-11-16] MEDS: WARFARIN SOD 5 MG TAB PO SCH (16:41)
[2016-11-16] MEDS: INSULIN GLARGINE SOLOSTAR 100 UNITS/ML 3 ML PEN SC SCH (21:37)
[2016-11-17] VITALS (7 sets, daily range): BP systolic 102–133; BP diastolic 68–80; PULSE 78–86; TEMP 36.4–36.9; O2SAT 91–96
[2016-11-17 06:21] LABS: BASO % 0.1 %; BASO ABS # 0.02 K/uL (0-0.2); COMPLETE YES; EOS % 0.3 %; HEMATOCRIT 40.2 % (42-52); IG% 2.7 %; LYMPH % 16.1 %; LYMPH ABS # 2.53 K/uL (1.2-3.4); MEAN CELL VOLUME 92.6 fL (80-100); MEAN CORPUSCULAR HEMOGLOBIN 31.3 pg (25-34); MEAN CORPUSCULAR HGB CONC 33.8 g/dl (32-36); MEAN PLATELET VOLUME 10.4 fL (7.4-10.4); MONO % 7.1 %; NEUT % 73.7 %; PLATELET COUNT 235 K/uL (130-400); RED BLOOD COUNT 4.34 M/uL (4.7-6.1); WHITE BLOOD COUNT 15.71 K/uL (4.8-10.8)
[2016-11-17 06:25] LABS: INR 2.1 (0.9-1.1)
[2016-11-17 06:45] LABS: BUN/CREATININE RATIO 26.3 (10-20); CALCIUM 8.8 mg/dl (8.5-10.1); CREATININE 0.86 mg/dl (0.60-1.40); POTASSIUM 4.5 mmol/L (3.5-5.1)
[2016-11-17] MEDS: CEROVITE ADV FORMULA TAB PO SCH (07:57)
[2016-11-17] MEDS: ASPIRIN 81 MG ECTAB PO SCH (07:57)
[2016-11-17] MEDS: MAGNESIUM OXIDE 400 MG TAB PO SCH (07:57)
[2016-11-17] MEDS: METOPROLOL SUCC 50MG EXT REL TAB PO SCH (07:57)
[2016-11-17] MEDS: PANTOprazole SOD 40 MG TAB PO SCH (07:57)
[2016-11-17] MEDS: ATORVASTATIN 40 MG TAB PO SCH (07:57)
[2016-11-17] MEDS: DOCUSATE SODIUM 100 MG CAP PO SCH ×2 (07:57→08:00)
[2016-11-17] MEDS: DOXAZosin MESYLATE TAB 2 MG TAB PO SCH (07:58)
[2016-11-17] MEDS: ENOXAPARIN 100 MG/1ML SYR SQ SCH (07:58)
[2016-11-17] MEDS: INSULIN ASPART 100 UNITS/ML 3 ML PEN SC SCH ×3 (08:35→16:30)
[2016-11-17] MEDS ORDERED: PRD20 PO (15:57)
[2016-11-17] MEDS ORDERED: GLC/500 PO (15:57)
[2016-11-17] MEDS ORDERED: INSDGIPEN SC (15:57)
[2016-11-17] MEDS ORDERED: INSU-698 SC (15:57)
[2016-11-17] MEDS ORDERED: XRL20 PO (15:57)
[2016-11-17] MEDS ORDERED: PRT40 PO (15:57)
--- NOTE | 2016-11-17 16:16 | Discharge Instructions ---
Discharge Instructions Admission Reason for Admission: Acute Respiratory Failure Discharge Discharge Diagnosis / Problem: Respiratory failure likely due to INTERSTITIAL LUNG DISEASE Discharge Goals Goal(s): Improve disease control, Improve nutritional status, Learn about illness, Diagnostic testing, Therapeutic intervention Activity Recommendations Activity Limitations: as noted below Lifting Limitations: no more than 25 pounds Exercise/Sports Limitations: until after follow-up appointment (no heavy exertional activity (going to the gym, heavy outdoor activity, etc) until you see your doctors in follow-up) Shower/Bathe: no limitations ( ) . Instructions / Follow-Up Instructions / Follow-Up From Dr. Melendez - 1. The care team at [facility] (lung doctor, ICU doctor, etc) feel that your respiratory condition is likely to be "interstitial lung disease" (ILD). In many cases we often don't know what causes ILD. However, it is a form of lung disease caused by inflammation in the lung tissue. As a precautionary measure we treated you for possible bacterial pneumonia during your stay. Your ILD will make you short of breath, particularly with activity. You will need to use your oxygen, 4 L, especially when you leave your home, do any form of activity, etc. Use the oxygen at night to sleep as well. DO NOT SMOKE and DO NOT ALLOW ANYONE TO SMOKE AROUND THE OXYGEN OR IN YOUR HOME due to high risk of a fire. 2. Your ILD will be treated with prednisone as follows - * 40mg twice daily for 10 days * then 20mg twice daily for 14 days * then 20mg once daily for 14 days * then 10mg once daily thereafter or as directed by your lung physicians 3. For your a. fib (irregular heart rhythm of the heart) - * take xarelto 20mg once daily; start this medication TODAY * xarelto is a blood thinner to help prevent strokes from the a. fib * since it is a blood thinner it increases your chances of bleeding from the nose, urinary tract, GI tract, etc * Xarelto is a medicine prescribed to prevent blood clots * Xarelto will thin your blood and help prevent new clots * Take your medications exactly as directed * Never skip a dose. Never take a double dose. If you miss a dose, take it as soon as you remember * Inform your doctor right away of the any of the following - * Cough with blood or bloody sputum * Bruises * heavy or uncontrolled bleeding * Blood in your urine, stool or vomit or any severe nosebleed * Black or tarry stools 4. Please stop all alcohol consumption if possible. If you cannot stop completely limit your alcohol intake to 2 drinks per day OR LESS. But, it is best to stop completely. 5. Take protonix (pantoprazole) once daily in the morning to prevent stomach ulcers from the aspirin and xarelto. 6. Stop all forms of NSAIDs (anti-inflammatories) including celebrex, motrin, ibuprofen, alleve, etc. TYLENOL IS OK to use for pain or discomfort. 7. For your diabetes - * INCREASE your metformin to 500mg twice daily; take each dose with food * START lantus insulin once daily AT BEDTIME; take 20 units each time * CHECK your blood sugar every morning upon awakening and at night-time * write these down for your family doctor to see * if you have a low blood sugar (less than 70) be sure to eat or drink something to bring the sugar up, then recheck the blood sugar in 15-20 minutes to ensure it is in normal range * if you are having frequent blood sugar LOWS please call your family doctor right away * alternatively, if your sugars are running high (over 150 consistently), please call your family doctor to discuss this * the lantus pen you are currently using does not need to be refrigerated * however, the extra pens should be stored in the refrigerator until used 8. Appointments - * see Ms. Gomez as scheduled * see Dr. Bird, lung specialist, as scheduled * see Dr. Eric, lung surgeon, in 1 month; you will need to call to schedule this appointment Current Hospital Diet Patient's current hospital diet: AHA Diet (Heart Healthy), Low Sodium Diet (2gm Na) Discharge Diet Recommended Diet: Diabetes Type 2 Diet Procedures Procedures Performed: numerous chest x-rays CAT scan of the lungs with suspected "interstitial lung disease" Pending Studies Studies pending at discharge: no Laboratory Results Hemoglobin A1c Test 11/06/16 17:37 Range/Units Estimated Average Glucose 128 mg/dl Hemoglobin A1c 6.1 H 4.5-5.6 % Lipid Panel Test 11/06/16 17:37 Range/Units Triglycerides Level 179 H 0-150 mg/dl Cholesterol Level 110 0-200 mg/dl HDL Cholesterol 28 mg/dl Cholesterol/HDL Ratio 3.9 LDL Cholesterol, Calculated 46 mg/dl Medical Emergencies . Who to Call and When: Medical Emergencies: If at any time you feel your situation is an emergency, please call 911 immediately. . Non-Emergent Contact Non-Emergency issues call your: Primary Care Provider, Welfare Project Manager Call Non-Emergent contact if: temperature is above 100.5, your pain is concerning you, you have any medication questions . . "Provider Documentation" section prepared by Jose Melendez. VTE Core Measure Inpt VTE Proph given/why not?: Other Anticoagulation, T.E.D. Stockings, SCD's
[2016-11-17] MEDS ORDERED: RIVAROXABAN 20 MG TAB PO SCH (17:00)
--- NOTE | 2016-11-25 00:01 | Discharge Summary ---
Discharge Summary Admission Date: Nov 07, 2016 at 16:41 Discharge Date: Nov 17, 2016 Discharge Disposition: Home Principal Diagnosis: acute hypoxic respiratory failure Problems/Secondary Diagnoses: 1. new-onset atrial fibrillation 2. probable acute diastolic CHF - resolved 3. alcohol dependence 4. BPH 5. T2DM 6. CAD s/p [place] 7. hyperlipidemia 8. abnormal LFTs with concern for alcoholic cirrhosis 9. HTN 10. acute kidney injury - resolved 11. hypomagnesemia - resolved 12. hypercalcemia - resolved 13. sepsis 2nd to pulmonary source - resolved 14. h/o prior cigarette use - quit years ago; now chews tobacco 15. suspected interstitial lung disease (ILD) - now with O2 dependency Procedures: 1. CT chest - IMPRESSION: 1. Extensive mixed interstitial and groundglass pulmonary opacities. The appearance is nonspecific. An infectious/inflammatory process is favored over atypical edema. In addition there are scattered subcentimeter nodules. 2. Mildly enlarged mediastinal and hilar lymph nodes 3. Coronary artery calcifications 4. No significant pleural effusions 2. V/Q scan - low probability for PE 3. bilateral lower extremity venous doppler negative for DVT 4. numerous chest x-rays 5. echocardiogram - * -- Conclusions -- * 1. Normal LV size. Mild concentric LVH. * 2. Normal LV systolic function. LVEF 65-70 %. No regional wall motion abnormalities. * 3. RV not well visualized, grossly normal size, mild RV dysfunction. * 4. Mild aortic valve sclerosis without stenosis. * 5. [id number]-[id number] mitral regurgitation. * 6. Severe left atrial dilation. * 7. Normal estimated PA and RA pressures. * 8. No prior studies for comparison. Consultations: 1. critical care - Henrik Duran DO 2. pulmonary - Heber Prajapati MD 3. CT surgery - Behzad Eric MD 4. PT, OT Medication Reconciliation New Medications: Needle (Bd Pen Needle/Mini/Ultraf) 1 Ea Inj BOX SC DAILY, #1 5 Refills Insulin Glargine (Lantus Solostar) 100 Unit/Ml Inj 20 UNIT SC HS, #1 BOX 2 Refills Pantoprazole (Pantoprazole Sodium) 40 Mg Tab 40 MG PO QAM, #30 TAB 5 Refills Prednisone (Prednisone) 20 Mg Tab 20 MG PO DIRECTED, #100 TAB 0 Refills starting on the night of 11/17/16: take 2 tabs PO BID x 10 days then, 1 tab PO BID x 14 days then, 1 tab PO daily x 14 days then, 1/2 tab PO daily thereafter. Take all with food. Rivaroxaban (Xarelto) 20 Mg Tab 20 MG PO daily with dinner, #30 TAB 5 Refills Changed Medications: Metformin Hcl (Glucophage) 500 Mg Tab 500 MG PO bid with meals, #60 TAB 2 Refills (Changed from: QAM; Refills: ) Continued Medications: Ascorbic Acid (Vitamin C) 1,000 Mg Tab 1000 MG PO QAM Aspirin (Aspirin) 81 Mg Tab 81 MG PO QAM Atorvastatin (Lipitor) 40 Mg Tab 40 MG PO QAM Cholecalciferol (Vitamin D) 2,000 Unit Tab 2000 INTER.UNIT PO QAM Cholestyramine (Cholestyramine) 4 Gm Pow 4 GM PO QPM MIX WITH 2-6 OUNCES OF NON CARBONATED BEVERAGE AND DRINK DAILY DIRECTED Doxazosin Mesylate (Doxazosin Mesylate) 2 Mg Tab 2 MG PO QAM Krill Oil (Krill Oil) 1 Cap Cap 1 CAP PO QAM Metoprolol Succinate (Metoprolol Succinate ER) 50 Mg Tabcr 50 MG PO QAM Multiple Vitamin (Multivitamin) 1 Tab Tab 1 TAB PO QAM, TAB Vitamin A (Vitamin A) 8,000 Unit Cap 8000 INTER.UNIT PO QAM Vitamin E (Vitamin E 400 Iu) 400 Unit Cap 400 INTER.UNIT PO QAM, CAP Discontinued Medications: Celecoxib (Celecoxib) 200 Mg Cap 200 MG PO QAM Losartan Potassium (Losartan Potassium) 50 Mg Tab 50 MG PO QAM Referrals At Discharge Follow up Referrals: Surgery Referral - Within a Month with Behzad Eric MD Discharge Exam Physical Exam: General Appearance: no apparent distress ENT: pharynx normal Neck: no JVD Respiratory/Chest: no respiratory distress, no accessory muscle use, + rales (bases) Cardiovascular: no gallop, no murmur, normal peripheral pulses, + irregularly irregular Abdomen / GI: normal bowel sounds, non tender, soft, no organomegaly Extremities: no pedal edema Neurologic/Psychiatric: alert, oriented x 3 Skin: no rash Hospital Course HISTORY OF PRESENT ILLNESS: Mr. Anderson is a pleasant 71-year-old male that presented to the emergency department complaining of a productive cough, shortness of breath and weakness that had been going on for approximately 1 week. The patient contacted his primary care physician about 24 hours prior to arrival. Chest x-ray and blood work were ordered. The patient was called today and told that his blood work was abnormal in addition to his chest x-ray. They advised he come to the emergency department for evaluation. The patient denied any fever or chills. He reported eating and drinking normally over the last several days, however his family stated that he does not stay hydrated with water. The patient admitted to heavy intake of coffee and alcohol. He denied any nausea or vomiting. No changes in bowel habit. No abdominal pain. The patient did receive a flu and pneumonia vaccine this year. At time of ER presentation he was significantly hypoxic with O2 sats in the upper 70s. Chest x-ray showed bilateral infiltrates. HOSPITAL COURSE: The patient had a prolonged hospital stay due to his acute hypoxic respiratory failure. His stay was also complicated by new-onset atrial fibrillation, acute diastolic CHF, and acute kidney injury. Initially it was thought that his respiratory failure was infectious in origin ( bilateral pneumonia). He was started on broad spectrum IV antibiotic therapy and given supportive care. Heparin drip was begun for his a. fib, and he was given gentle diuresis for his suspected acute diastolic CHF. His respiratory status worsened as evidenced by increasing/significant O2 requirements and thus he was transferred to the ICU. At time of ICU transfer he was begun on high-dose IV steroids and high-flow nasal cannula O2. A multitude of studies were obtained including chest CT, HIV test, Mycoplasma titers, urine for legionella antigen, MRSA swab, etc. All studies were negative/normal except for the chest CT demonstrating bilateral interstitial infiltrates and groundglass opacities. With the above measures he made steady improvement in all pulmonary symptoms. His O2 was weaned, and he was ultimately transferred back to the medical floor. Fortunately he never showed signs of alcohol withdrawal or DTs. As time went on it was suspected that the etiology of his respiratory failure was not infectious but rather interstitial lung disease. For that reason he was continued on prednisone and will taper this very slowly over weeks following discharge. At discharge the patient will need 4 liters of [place] O2 continuously at home. Other problems addressed: 1. acute kidney injury - admission Cr 1.4, improving to 0.8 at discharge. 2. hypomagnesemia - due to alcoholism - resolved with replacement. 3. hypercalcemia - resolved with supportive care measures. 4. abnormal LFTs - low albumin, mildly elevated INR, and abnormal LFTs all in the setting of chronic alcohol intake are concerning for cirrhosis. HepB/C titers were negative. He will ultimately need a dedicated ultrasound of the liver. He was advised to abstain from all alcohol. However, on day of discharge, he communicated that he was not going to stop drinking. 5. anticoagulation for a. fib - since he had no plans to stop drinking alcohol after discharge it was felt that coumadin would be risky. Thus, a NOAC was recommended and he was started on daily xarelto 20mg. A. fib rates were well-controlled during his stay. He will follow-up with his PCP, Dr. Behzad Bird from pulmonary, and Dr. Behzad Eric from CT surgery after discharge. If he fails to improve with steroid therapy over the weeks following discharge he may need a lung biopsy by Dr. Eric for definitive diagnosis. Recommendations at discharge - 1. consideration of pulmonary rehab 2. abdominal ultrasound to exclude cirrhosis 3. assistance with alcohol abstinence Total Time Spent: Greater than 30 minutes This includes examination of the patient, discharge planning, medication reconciliation, and communication with other providers. Discharge Instructions Please refer to the electronic Patient Visit Report (Discharge Instructions) for additional information. Follow-Up 1. ADORE Munoz on ThursdayNovember 26 at 4:[address] Bird, [facility], on November 27 at 2:[address] Behzad Eric, CT surgery, in 1 month Additional Copies To Behzad Bird DO; Chanelle Gomez, C.R.N.P.; Behzad Eric MD
[2016-12-03 13:50] VITALS: Ht 172.7 cm; Wt 92.9 kg
== END 2016-11-17 19:45 | disposition home or self-care (01) | DRG 196 ==
LOC: ENRESERVDT → ENRESERVTM → C.EDB 15:13 → C.2E 16:41 → C.MSICU 11-08 13:16 → C.4E 11-14 12:52
PROVIDERS: ADMIT Hospitalist; ATTEND Internal Medicine
DX: J84.9 Interstitial pulmonary disease, unspecified (principal); J96.01 Acute respiratory failure with hypoxia; N17.9 Acute kidney failure, unspecified; I50.31 Acute diastolic (congestive) heart failure; E78.00 Pure hypercholesterolemia, unspecified; F10.20 Alcohol dependence, uncomplicated; E11.9 Type 2 diabetes mellitus without complications; I10 Essential (primary) hypertension; I25.2 Old myocardial infarction; I48.91 Unspecified atrial fibrillation; N40.0 Benign prostatic hyperplasia without lower urinary tract symptoms; E86.0 Dehydration; M19.90 Unspecified osteoarthritis, unspecified site; E83.42 Hypomagnesemia; Z87.891 Personal history of nicotine dependence; R53.83 Other fatigue; E07.9 Disorder of thyroid, unspecified; R91.8 Other nonspecific abnormal finding of lung field

== ENCOUNTER → 2016-11-27 | Outpatient (CLI) | payer BC ==
[~2016-11-27] MED LIST changes: +ATOR-24 PO; +CHOL4POW4 PO; -CHOL4POW6 PO; -CLB/200 PO; +CRD2 PO; +INSDGIPEN SC; +INSU-698 SC; +KRIL1000 PO; -LOSA50TA6 PO; -LPT/40 PO; -METO50TA7 PO; -OMEG12006 PO; +PRD20 PO; +PRT40 PO; +TPRSR/50 PO; +VITA400C3 PO; -VTME400 PO; +XRL20 PO
--- NOTE | 2016-11-27 16:30 | DIAGNOSTIC IMAGING REPORT ---
TWO VIEW CHEST CLINICAL HISTORY: Interstitial lung disease. FINDINGS: PA and lateral chest radiographs are compared to study dated 11/12/2016. Correlation is made with chest CT dated 11/07/2016. The PA view is degraded by patient rotation. The heart is enlarged and there is atherosclerotic calcification of the thoracic aorta. The pulmonary vascular structures noncongested. Changes of chronic interstitial lung disease are again seen throughout both lungs with a lower lobe predominance. More focal airspace opacities are present the right lung base. No pleural effusion or pneumothorax is seen. The skeletal structures are osteopenic. The bony thorax appears intact. Surgical anchors are noted in the left humeral head. IMPRESSION: 1. Cardiomegaly without convincing radiographic evidence of congestive failure. 2. Findings of chronic interstitial lung disease are similar to previous. 3. Asymmetric airspace opacities are again seen at the right lung base. This may be related to chronic lung disease or could represent a superimposed infectious/inflammatory pneumonitis. Clinical correlation will be required. Electronically signed by: Ion Chauhan M.D. 11/27/2016 4:28 PM Dictated Date/Time: 11/27/2016 4:25 PM
== END | disposition home or self-care (01) ==
LOC: C.RAD1850 15:52
PROVIDERS: ATTEND Internal Medicine Pulmonary Disease
DX: J84.9 Interstitial pulmonary disease, unspecified (principal); I51.7 Cardiomegaly

== ENCOUNTER → 2016-12-01 | Outpatient (CLI) | payer BC ==
--- NOTE | 2016-12-01 13:00 | DIAGNOSTIC IMAGING REPORT ---
ABDOMINAL ULTRASOUND, RIGHT UPPER QUADRANT HISTORY: ELEVATED LIVER ENZYMES, HX ALCOHOL USE. COMPARISON: Abdominal ultrasound 02/27/2012. FINDINGS: Pancreas: Obscured by overlying bowel gas. Liver: The liver is echogenic consistent with fatty change. This remains unchanged. The liver measures 16 cm in length. Gallbladder: No gallbladder wall thickening. No gallstones. CBD: 4 mm. Right kidney: No hydronephrosis. IMPRESSION: Stable mild hepatic steatosis. Electronically signed by: Piotr Rivera M.D. 12/01/2016 12:58 PM Dictated Date/Time: 12/01/2016 12:56 PM
== END | disposition home or self-care (01) ==
LOC: C.ULTR 11:38
PROVIDERS: ATTEND Nurse Practitioner
DX: F10.99 Alcohol use, unspecified with unspecified alcohol-induced disorder (principal); R74.0 Nonspecific elevation of levels of transaminase and lactic acid dehydrogenase [LDH]

== ENCOUNTER → 2016-12-15 | Outpatient (CLI) | payer BC ==
--- NOTE | 2016-12-15 16:37 | DIAGNOSTIC IMAGING REPORT ---
CT OF THE CHEST WITHOUT IV CONTRAST CLINICAL HISTORY: Interstitial lung disease. Nodule. COMPARISON STUDY: 11/07/2016 CT DOSE: 551.22 mGycm TECHNIQUE: CT of the thorax was performed from the thoracic inlet to the lung bases. Images are reviewed in the axial, sagittal, and coronal planes. IV contrast was not administered for this examination. FINDINGS: Thyroid: Imaged portions of the thyroid gland are normal in appearance. Thoracic aorta: The thoracic aorta is normal in course and caliber, noting standard 3 vessel arch anatomy. Heart: There are coronary artery calcifications present. The heart is mildly enlarged. Lungs and pleural spaces: There are trace bilateral pleural effusions. There are persistent but improving bilateral interstitial and groundglass pulmonary opacities. Underlying emphysema is suspected. There are scattered subcentimeter pulmonary nodules. Mediastinum: There is an 11 mm right paratracheal lymph node. There is a pretracheal lymph node measuring 1 cm. There is a 15 mm subcarinal lymph node. Leora: Mild hilar lymph node enlargement is suspected although evaluation is limited given the lack of intravenous contrast Axilla: Clear. Upper abdomen: Partially visualized upper abdominal viscera is within normal limits. Skeletal structures: There are no lytic or blastic osseous lesions. IMPRESSION: 1. Mildly enlarged mediastinal hilar lymph nodes similar to the prior study 2. Trace bilateral pleural effusions 3. Persistent but improving bilateral interstitial and groundglass pulmonary opacities area Electronically signed by: John Katz M.D. 12/15/2016 4:36 PM Dictated Date/Time: 12/15/2016 4:31 PM
== END | disposition home or self-care (01) ==
LOC: C.CTS 15:55
PROVIDERS: ATTEND Surgery
DX: J84.9 Interstitial pulmonary disease, unspecified (principal); R91.1 Solitary pulmonary nodule; R59.0 Localized enlarged lymph nodes; J90 Pleural effusion, not elsewhere classified

== ENCOUNTER → 2016-12-31 | Outpatient (CLI) | payer BC ==
--- NOTE | 2016-12-31 17:23 | DIAGNOSTIC IMAGING REPORT ---
CHEST 2 VIEWS ROUTINE CLINICAL HISTORY: Hemoptysis. COMPARISON STUDY: Chest CT December 15, 2016. FINDINGS: There is no pneumothorax. There are small bilateral pleural effusions, left larger than right. Diffuse interstitial thickening with asymmetric right lung airspace opacity is noted. Cardiomegaly is unchanged. There are surgical anchors within the left humeral head. IMPRESSION: 1. Mild progression of interstitial thickening and asymmetric right lung airspace opacity since prior exam. This could reflect pneumonia or pulmonary edema, superimposed upon interstitial lung disease. 2. Small left and trace right pleural effusions. 3. Stable cardiomegaly. Electronically signed by: Micky Perales M.D. 12/31/2016 5:21 PM Dictated Date/Time: 12/31/2016 5:20 PM
[2016-12-31 17:33] LABS: BASO % 0.3 %; BASO ABS # 0.02 K/uL (0-0.2); COMPLETE YES; EOS % 0.3 %; HEMATOCRIT 32.5 % (42-52); IG% 0.5 %; LYMPH % 18.7 %; LYMPH ABS # 1.38 K/uL (1.2-3.4); MEAN CELL VOLUME 89.3 fL (80-100); MEAN CORPUSCULAR HEMOGLOBIN 30.5 pg (25-34); MEAN CORPUSCULAR HGB CONC 34.2 g/dl (32-36); MEAN PLATELET VOLUME 9.3 fL (7.4-10.4); MONO % 10.3 %; NEUT % 69.9 %; PLATELET COUNT 171 K/uL (130-400); RED BLOOD COUNT 3.64 M/uL (4.7-6.1); WHITE BLOOD COUNT 7.39 K/uL (4.8-10.8)
[2016-12-31 18:02] LABS: ALT/SGPT 84 U/L (12-78); AST/SGOT 30 U/L (15-37); BLOOD UREA NITROGEN 17 mg/dl (7-18); BUN/CREATININE RATIO 20.1 (10-20); CARBON DIOXIDE 28 mmol/L (21-32); CHLORIDE 104 mmol/L (98-107); CREATININE 0.85 mg/dl (0.60-1.40); GLUCOSE 91 mg/dl (70-99); POTASSIUM 3.8 mmol/L (3.5-5.1); SODIUM 140 mmol/L (136-145)
[2016-12-31 18:07] LABS: ALB/GLOB RATIO 0.7 (0.9-2); ALKALINE PHOSPHATASE 63 U/L (45-117)
== END | disposition home or self-care (01) ==
LOC: C.RAD1850 16:36
PROVIDERS: ATTEND Internal Medicine Pulmonary Disease
DX: R04.2 Hemoptysis (principal); R09.02 Hypoxemia; R60.9 Edema, unspecified; R91.8 Other nonspecific abnormal finding of lung field; I51.7 Cardiomegaly

== ENCOUNTER → 2017-01-06 | Outpatient (CLI) | payer BC ==
[2017-01-06 17:34] LABS: BASO % 0.2 %; BASO ABS # 0.02 K/uL (0-0.2); COMPLETE YES; HEMATOCRIT 34.2 % (42-52); IG% 0.5 %; LYMPH % 19.2 %; LYMPH ABS # 1.59 K/uL (1.2-3.4); MEAN CELL VOLUME 89.3 fL (80-100); MEAN CORPUSCULAR HGB CONC 32.5 g/dl (32-36); MEAN PLATELET VOLUME 8.8 fL (7.4-10.4); MONO % 5.1 %; PLATELET COUNT 226 K/uL (130-400); RED BLOOD COUNT 3.83 M/uL (4.7-6.1)
[2017-01-06 18:01] LABS: ALT/SGPT 138 U/L (12-78); BLOOD UREA NITROGEN 26 mg/dl (7-18); BUN/CREATININE RATIO 27.3 (10-20); CALCIUM 9.5 mg/dl (8.5-10.1); CARBON DIOXIDE 31 mmol/L (21-32); CHLORIDE 104 mmol/L (98-107); CREATININE 0.96 mg/dl (0.60-1.40); GLUCOSE 121 mg/dl (70-99); POTASSIUM 3.8 mmol/L (3.5-5.1); SODIUM 142 mmol/L (136-145)
[2017-01-06 18:06] LABS: ALB/GLOB RATIO 0.8 (0.9-2); ALKALINE PHOSPHATASE 67 U/L (45-117); AST/SGOT 59 U/L (15-37)
== END | disposition home or self-care (01) ==
LOC: C.LAB1850 17:09
PROVIDERS: ATTEND Internal Medicine Pulmonary Disease
DX: R04.2 Hemoptysis (principal); I50.9 Heart failure, unspecified

== ENCOUNTER → 2017-01-20 | Outpatient (CLI) | payer BC ==
[~2017-01-20] MED LIST changes: +ASPEC81 PO; +ENOX120I SQ; +LSX20 PO; +OXGN; +PRED-301 PO; +TEMA15CA4 PO; +TRAZ50TA35 PO; +WARF5TAB7 PO
--- NOTE | 2017-01-20 17:27 | DIAGNOSTIC IMAGING REPORT ---
CHEST 2 VIEWS ROUTINE CLINICAL HISTORY: J84.9 ILD (interstitial lung disease)[id number] COMPARISON STUDY: 12/31/2016 FINDINGS: Moderate stable cardiomegaly. Diffuse interstitial prominence throughout both hemithoraces slightly improved in a right perihilar and right suprahilar distribution. Persistent left retrocardiac parenchymal prominence. Unchanging left basilar pleural thickening most likely chronic. IMPRESSION: Diffuse interstitial change and superimposed infiltrative change slightly improved compared to the prior exam. Electronically signed by: Anselmo Arellano M.D. 01/20/2017 5:25 PM Dictated Date/Time: 01/20/2017 5:23 PM
[2017-01-20 17:46] LABS: BASO % 0.2 %; BASO ABS # 0.03 K/uL (0-0.2); COMPLETE YES; EOS % 0.1 %; HEMATOCRIT 35.7 % (42-52); IG% 0.6 %; LYMPH % 11.7 %; LYMPH ABS # 1.49 K/uL (1.2-3.4); MEAN CELL VOLUME 89.7 fL (80-100); MEAN CORPUSCULAR HEMOGLOBIN 29.4 pg (25-34); MEAN CORPUSCULAR HGB CONC 32.8 g/dl (32-36); MEAN PLATELET VOLUME 9.7 fL (7.4-10.4); MONO % 5.6 %; NEUT % 81.8 %; PLATELET COUNT 199 K/uL (130-400); RED BLOOD COUNT 3.98 M/uL (4.7-6.1); WHITE BLOOD COUNT 12.74 K/uL (4.8-10.8)
== END | disposition home or self-care (01) ==
LOC: C.LAB1850 17:01
PROVIDERS: ATTEND Internal Medicine Pulmonary Disease
DX: J84.9 Interstitial pulmonary disease, unspecified (principal); K62.5 Hemorrhage of anus and rectum

== ENCOUNTER → 2017-01-29 | Outpatient (CLI) | payer BC | END | disposition home or self-care (01) | LOC: C.LAB1850 13:32 | PROVIDERS: ATTEND Physician Assistant Medical | DX: I25.10 Atherosclerotic heart disease of native coronary artery without angina pectoris (principal) ==

== ENCOUNTER → 2017-02-26 | Outpatient (CLI) | payer BC ==
[2017-02-26 18:03] LABS: ALB/GLOB RATIO 0.8 (0.9-2); ALKALINE PHOSPHATASE 64 U/L (45-117); ALT/SGPT 222 U/L (12-78); AST/SGOT 113 U/L (15-37); BLOOD UREA NITROGEN 14 mg/dl (7-18); BUN/CREATININE RATIO 16.3 (10-20); CALCIUM 9.5 mg/dl (8.5-10.1); CARBON DIOXIDE 31 mmol/L (21-32); CHLORIDE 101 mmol/L (98-107); CHOLESTEROL 195 mg/dl (0-200); CHOLESTEROL/HDL RATIO 5.3; CREATININE 0.87 mg/dl (0.60-1.40); FERRITIN 268.1 ng/ml (8.0-388.0); GLUCOSE 96 mg/dl (70-99); HDL CHOLESTEROL 37 mg/dl; LDL CHOLESTEROL CALCULATED 119 mg/dl; MAGNESIUM 2.1 mg/dl (1.8-2.4); POTASSIUM 4.1 mmol/L (3.5-5.1); SODIUM 139 mmol/L (136-145); TRIGLYCERIDES 193 mg/dl (0-150); VERY LOW DENSITY LIPOPROT CALC 39 mg/dl
[2017-02-26 18:09] LABS: TOTAL IRON BINDING CAPACITY 329 mcg/dl (250-450)
[2017-02-27 07:22] LABS: ESTIMATED AVERAGE GLUCOSE 128 mg/dl; HA1C FLAG Normal (Normal)
[2017-03-02 12:32] LABS: ALPHA-1-ANTITRYPSIN TC 67710E 138 MG/DL (83-199)
== END | disposition home or self-care (01) ==
LOC: C.LABBFT 10:16
PROVIDERS: ATTEND Nurse Practitioner
DX: E11.9 Type 2 diabetes mellitus without complications (principal); R74.0 Nonspecific elevation of levels of transaminase and lactic acid dehydrogenase [LDH]; E78.00 Pure hypercholesterolemia, unspecified

== ENCOUNTER → 2017-03-30 | Outpatient (CLI) | payer BC ==
--- NOTE | 2017-03-30 16:25 | DIAGNOSTIC IMAGING REPORT ---
CHEST 2 VIEWS ROUTINE CLINICAL HISTORY: Interstitial lung disease COMPARISON STUDY: 01/20/2017, 12/31/2016 FINDINGS: The heart is enlarged. There is no lobar consolidation. There is slight improvement in diffuse interstitial thickening. There is minor blunting of the left lateral posterior costophrenic angle. This is likely chronic.[ IMPRESSION: Cardiomegaly. Slight further interval improvement in the bilateral interstitial thickening. Electronically signed by: John Katz M.D. 03/30/2017 4:23 PM Dictated Date/Time: 03/30/2017 4:22 PM
== END ==
LOC: C.RAD1850 16:05
PROVIDERS: ATTEND Internal Medicine Pulmonary Disease
DX: J84.9 Interstitial pulmonary disease, unspecified (principal)

== ENCOUNTER → 2017-04-08 | Outpatient (CLI) | payer BC ==
[2017-04-08 17:51] LABS: FERRITIN 107.3 ng/ml (8.0-388.0)
[2017-04-12 23:04] LABS: ALPHA-1-ANTITRYPSIN TC 67710E 136 MG/DL (83-199); LIVER FIBR APOLIPOPROTEIN A-1 126 mg/dL (94-176); LIVER FIBROS ALPHA-2-MACROGLOB 198 mg/dL (106-279); LIVER FIBROSIS GGT 32 U/L (3-70); NECROINFLAMMATION ACT GRADE A0; NECROINFLAMMATION ACT SCORE 0.08
== END | disposition home or self-care (01) ==
LOC: C.LAB 16:58
PROVIDERS: ATTEND Internal Medicine Gastroenterology
DX: R79.89 Other specified abnormal findings of blood chemistry (principal)

== ENCOUNTER → 2017-06-26 | Outpatient (CLI) | payer BC ==
[~2017-06-26] MED LIST changes: -ASPEC81 PO; -ENOX120I SQ; -LSX20 PO; -OXGN; -PRED-301 PO; -TEMA15CA4 PO; -TRAZ50TA35 PO; -WARF5TAB7 PO
[2017-06-27 08:18] LABS: ESTIMATED AVERAGE GLUCOSE 123 mg/dl; HA1C FLAG Normal (Normal)
== END | disposition home or self-care (01) ==
LOC: C.LABBFT 14:51
PROVIDERS: ATTEND Nurse Practitioner
DX: R74.0 Nonspecific elevation of levels of transaminase and lactic acid dehydrogenase [LDH] (principal); E78.00 Pure hypercholesterolemia, unspecified; E11.9 Type 2 diabetes mellitus without complications

== ENCOUNTER 2017-08-23 21:12 | Inpatient (IN) | payer BC, OTHER ==
[~2017-08-23] VITALS: Ht 172.7 cm; Wt 101.8 kg
[2017-08-23] MEDS ORDERED: SODIUM CHLORIDE 0.9% 1000ML 1,000 ML IV SCH (21:26)
[2017-08-23] MEDS ORDERED: LSX20 PO (21:29)
[2017-08-23] MEDS ORDERED: INSDGIPEN SC (21:30)
[2017-08-23] MEDS ORDERED: OXGN (21:30)
[2017-08-23] MEDS ORDERED: PRED-301 PO (21:31)
[2017-08-23] MEDS ORDERED: TEMA15CA4 PO (21:32)
[2017-08-23] MEDS ORDERED: TRAZ50TA35 PO (21:32)
--- NOTE | 2017-08-23 21:40 | DIAGNOSTIC IMAGING REPORT ---
CT SCAN OF THE BRAIN WITHOUT IV CONTRAST CLINICAL HISTORY: Strokelike symptoms. COMPARISON STUDY: No priors. TECHNIQUE: Unenhanced axial CT scan of the brain is performed from the vertex to the skull base. CT DOSE: 709.48 mGy.cm FINDINGS: Brain parenchyma: There are age-related involutional changes noting moderate subcortical and periventricular microangiopathic change. There is no hemorrhage, mass effect, or evidence of acute territorial ischemia by CT criteria. A chronic lacunar infarct is seen in the right cerebellar hemisphere. Juarez-white matter is preserved. No extra-axial fluid collection is seen. Ventricles, sulci, cisterns: Prominent secondary to involutional change. Intracranial vasculature: There is atherosclerotic calcification of the cavernous carotid and vertebral arteries. Calvarium: Unremarkable. Sinuses and mastoids: A tiny air-fluid level is seen in the left maxillary antrum. The remaining visualized paranasal sinuses are clear. There is evidence of previous right mastoid surgery. A large left mastoid effusion is noted. Orbits: The bony orbits are grossly intact. IMPRESSION: Senescent changes as above with no hemorrhage, mass effect, or evidence of acute territorial ischemia by CT criteria. Electronically signed by: Ion Chauhan M.D. 08/23/2017 9:38 PM Dictated Date/Time: 08/23/2017 9:36 PM
[2017-08-23 21:51] LABS: BASO % 0.4 %; BASO ABS # 0.05 K/uL (0-0.2); COMPLETE YES; EOS % 1.2 %; HEMATOCRIT 44.8 % (42-52); IG% 0.7 %; LYMPH ABS # 3.28 K/uL (1.2-3.4); MEAN CELL VOLUME 84.8 fL (80-100); MEAN CORPUSCULAR HEMOGLOBIN 29.7 pg (25-34); MEAN PLATELET VOLUME 9.6 fL (7.4-10.4); MONO % 8.6 %; NEUT % 64.1 %; PLATELET COUNT 220 K/uL (130-400); RED BLOOD COUNT 5.28 M/uL (4.7-6.1); WHITE BLOOD COUNT 13.12 K/uL (4.8-10.8)
--- NOTE | 2017-08-23 21:58 | DIAGNOSTIC IMAGING REPORT ---
SINGLE VIEW CHEST CLINICAL HISTORY: Strokelike symptoms. FINDINGS: An AP, portable, upright chest radiograph is compared to study dated 03/30/2017. The heart is enlarged and there is atherosclerotic calcification of the thoracic aorta. There is pulmonary vascular congestion. Mild bibasilar atelectasis is observed. There is no airspace consolidation or large pleural effusion. No pneumothorax is seen. The skeletal structures are osteopenic. The bony thorax is grossly intact. Postoperative change is noted in the left humeral head. IMPRESSION: Cardiomegaly with evidence of mild congestive failure. Electronically signed by: Ion Chauhan M.D. 08/23/2017 9:57 PM Dictated Date/Time: 08/23/2017 9:56 PM
[2017-08-23 22:16] LABS: BLOOD UREA NITROGEN 21 mg/dl (7-18); BUN/CREATININE RATIO 23.6 (10-20); CALCIUM 9.2 mg/dl (8.5-10.1); CARBON DIOXIDE 25 mmol/L (21-32); CHLORIDE 105 mmol/L (98-107); GLUCOSE 105 mg/dl (70-99); SODIUM 137 mmol/L (136-145)
[2017-08-23 22:19] LABS: POTASSIUM 4.8 mmol/L (3.5-5.1)
[2017-08-23 22:23] LABS: PROTHROMBIN TIME (PATIENT) 10.9 SECONDS (9.0-12.0)
[2017-08-23 22:28] LABS: CKMB/CK RATIO 2.1 (0-3.0); MAGNESIUM 2.2 mg/dl (1.8-2.4)
[2017-08-23] MEDS ORDERED: OPTIRAY 320 IV PRN (23:00)
[2017-08-24] VITALS (8 sets, daily range): BP systolic 133–164; BP diastolic 87–102; PULSE 67–82; TEMP 36.4–36.8; O2SAT 90–96; Ht 172.7 cm; Wt 101.8 kg
--- NOTE | 2017-08-24 00:21 | EMERGENCY ROOM VISIT NOTE ---
History Report prepared by Luis: Massiel Stapleton Under the Supervision of: Dr. Garrett Sifuentes D.O. First contact with patient: 21:22 Chief Complaint: CVA SYMPTOMS Stated Complaint: STROKE SX History of Present Illness The patient is a 72 year old male who presents to the Emergency Room with complaints of persistent stroke symptoms starting around 2 hours ago. The patient presents to the ED by EMS. He suddenly sat down with right sided weakness and was unable to speak. He is able to nod to answer questions. He reports chest pain. He denies any headache, SOB, nausea, vomiting, or diarrhea. He has a history of atrial fibrillation and is on Xarelto. He denies any missed medications. With the family confirmed that symptoms started at 8 PM. Right-sided weakness and unable to smile. notes that he has been taking all of his medications which includes a Xa daily. Later just prior to admission notes that he only takes the Xa inhibitor every other day. Source of History: patient, EMS Onset: 2 hours ago Position: other (global) Quality: other (stroke symptoms) Timing: other (persistent) Associated Symptoms: + chest pain, + weakness (right sided), No headache, No SOB, No nausea, No vomiting, No diarrhea Note: Pt is unable to speak. Review of Systems See HPI for pertinent positives & negatives. A total of 10 systems reviewed and were otherwise negative. Past Medical & Surgical Medical Problems: (1) Acute respiratory failure with hypoxia (2) Alcohol dependence, daily use (3) Arthritis (4) Diabetes (5) Heart disease (6) High cholesterol (7) Hypertension (8) Interstitial lung disease (9) Myocardial infarction Surgical Problems: (1) S/P shoulder surgery Family History Cancer Diabetes mellitus Heart disease Hypertension Social History Smoking Status: Former Smoker Alcohol Use: occasionally Marital Status: Housing Status: lives with significant other Occupation Status: retired Current/Historical Medications Scheduled Ascorbic Acid (Vitamin C), 1,000 MG PO QAM Atorvastatin (Lipitor), 40 MG PO QAM Cholecalciferol (Vitamin D), 2,000 INTER.UNIT PO QAM Cholestyramine (Cholestyramine), 4 GM PO QPM Doxazosin Mesylate (Doxazosin Mesylate), 2 MG PO QAM Furosemide (Furosemide), 40 MG PO DAILY Home O2 Therapy (Oxygen), 4 LITERS NA UD Insulin Glargine (Lantus Solostar), 8 UNITS SC QPM Krill Oil (Krill Oil), 1 CAP PO QAM Metformin Hcl (Glucophage), 500 MG PO bid with meals Metoprolol Succinate (Metoprolol Succinate ER), 50 MG PO QAM Multiple Vitamin (Multivitamin), 1 TAB PO QAM Prednisone (Prednisone), 7.5 MG PO DAILY Rivaroxaban (Xarelto), 20 MG PO daily with dinner Vitamin A (Vitamin A), 8,000 INTER.UNIT PO QAM Vitamin E (Vitamin E 400 Iu), 400 INTER.UNIT PO QAM Scheduled PRN Temazepam (Restoril), 15 MG PO HS PRN for Sleep Miscellaneous Medications Trazodone Hcl (Trazodone), 100 MG PO Allergies Coded Allergies: No Known Allergies (Verified , 08/23/17) Physical Exam Vital Signs Date Time Temp Pulse Resp B/P (MAP) Pulse Ox O2 Delivery O2 Flow Rate FiO2 08/23/17 23:16 72 18 128/92 93 08/23/17 23:13 130/85 08/23/17 22:46 170/113 08/23/17 22:42 68 26 94 08/23/17 22:31 161/102 08/23/17 22:15 153/97 08/23/17 22:12 79 16 94 08/23/17 22:07 134/96 08/23/17 22:06 71 20 134/96 94 Room Air 08/23/17 22:02 181/157 08/23/17 21:47 170/97 08/23/17 21:44 71 08/23/17 21:42 72 22 96 08/23/17 21:34 125/86 08/23/17 21:27 37.3 68 20 167/95 94 Room Air 08/23/17 21:27 94 Room Air 08/23/17 21:14 167/95 Physical Exam GENERAL: Sitting up in bed, aphasic with right sided facial droop. EYE EXAM: normal conjunctiva. OROPHARYNX: no exudate, no erythema, lips, buccal mucosa, and tongue normal and mucous membranes are moist NECK: supple, no nuchal rigidity, no adenopathy, non-tender LUNGS: Clear to auscultation. Normal chest wall mechanics HEART: no murmurs, S1 normal and S2 normal ABDOMEN: abdomen soft, non-tender, normo-active bowel sounds, no masses, no rebound or guarding. BACK: Back is symmetrical on inspection and there is no deformity, no midline tenderness, no CVA tenderness. SKIN: no rashes and no bruising UPPER EXTREMITIES: upper extremities are grossly normal. LOWER EXTREMITIES: No pitting edema. NEURO EXAM: Aphasic, but able to moan. Right sided facial droop. Unable to puff out cheeks. Weak in the RUE with grasp, flexion, extension. Positive drift. Unable to perform finger to nose. No weakness in lower extremities. Medical Decision & Procedures ER Provider Diagnostic Interpretation: Radiology results as stated below per my review and the radiologist's interpretation: SINGLE VIEW CHEST CLINICAL HISTORY: Strokelike symptoms. FINDINGS: An AP, portable, upright chest radiograph is compared to study dated 03/30/2017. The heart is enlarged and there is atherosclerotic calcification of the thoracic aorta. There is pulmonary vascular congestion. Mild bibasilar atelectasis is observed. There is no airspace consolidation or large pleural effusion. No pneumothorax is seen. The skeletal structures are osteopenic. The bony thorax is grossly intact. Postoperative change is noted in the left humeral head. IMPRESSION: Cardiomegaly with evidence of mild congestive failure. Electronically signed by: Ion Chauhan M.D. 08/23/2017 9:57 PM Dictated Date/Time: 08/23/2017 9:[address] SCAN OF THE BRAIN WITHOUT IV CONTRAST CLINICAL HISTORY: Strokelike symptoms. COMPARISON STUDY: No priors. TECHNIQUE: Unenhanced axial CT scan of the brain is performed from the vertex to the skull base. CT DOSE: 709.48 mGy.cm FINDINGS: Brain parenchyma: There are age-related involutional changes noting moderate subcortical and periventricular microangiopathic change. There is no hemorrhage, mass effect, or evidence of acute territorial ischemia by CT criteria. A chronic lacunar infarct is seen in the right cerebellar hemisphere. Ujarez-white matter is preserved. No extra-axial fluid collection is seen. Ventricles, sulci, cisterns: Prominent secondary to involutional change. Intracranial vasculature: There is atherosclerotic calcification of the cavernous carotid and vertebral arteries. Calvarium: Unremarkable. Sinuses and mastoids: A tiny air-fluid level is seen in the left maxillary antrum. The remaining visualized paranasal sinuses are clear. There is evidence of previous right mastoid surgery. A large left mastoid effusion is noted. Orbits: The bony orbits are grossly intact. IMPRESSION: Senescent changes as above with no hemorrhage, mass effect, or evidence of acute territorial ischemia by CT criteria. Electronically signed by: Ion Chauhan M.D. 08/23/2017 9:38 PM Dictated Date/Time: 08/23/2017 9:36 PM Laboratory Results 08/23/17 21:37 Red Blood Count 5.28, Mean Corpuscular Volume 84.8, Mean Corpuscular Hemoglobin 29.7, Mean Corpuscular Hemoglobin Concent 35.0, Mean Platelet Volume 9.6, Neutrophils (%) (Auto) 64.1, Lymphocytes (%) (Auto) 25.0, Monocytes (%) (Auto) 8.6, Eosinophils (%) (Auto) 1.2, Basophils (%) (Auto) 0.4, Neutrophils # (Auto) 8.41, Lymphocytes # (Auto) 3.28, Monocytes # (Auto) 1.13, Eosinophils # (Auto) 0.16, Basophils # (Auto) 0.05 08/23/17 21:37 Test 08/23/17 21:37 08/23/17 21:38 08/23/17 21:39 White Blood Count 13.12 K/uL (4.8-10.8) Red Blood Count 5.28 M/uL (4.7-6.1) Hemoglobin 15.7 g/dL (14.0-18.0) Hematocrit 44.8 % (42-52) Mean Corpuscular Volume 84.8 fL (80-100) Mean Corpuscular Hemoglobin 29.7 pg (25-34) Mean Corpuscular Hemoglobin Concent 35.0 g/dl (32-36) Platelet Count 220 K/uL (130-400) Mean Platelet Volume 9.6 fL (7.4-10.4) Neutrophils (%) (Auto) 64.1 % Lymphocytes (%) (Auto) 25.0 % Monocytes (%) (Auto) 8.6 % Eosinophils (%) (Auto) 1.2 % Basophils (%) (Auto) 0.4 % Neutrophils # (Auto) 8.41 K/uL (1.4-6.5) Lymphocytes # (Auto) 3.28 K/uL (1.2-3.4) Monocytes # (Auto) 1.13 K/uL (0.11-0.59) Eosinophils # (Auto) 0.16 K/uL (0-0.5) Basophils # (Auto) 0.05 K/uL (0-0.2) RDW Standard Deviation 44.6 fL (36.4-46.3) RDW Coefficient of Variation 14.5 % (11.5-14.5) Immature Granulocyte % (Auto) 0.7 % Immature Granulocyte # (Auto) 0.09 K/uL (0.00-0.02) Prothrombin Time 10.9 SECONDS (9.0-12.0) Prothromb Time International Ratio 1.0 (0.9-1.1) Activated Partial Thromboplast Time 26.6 SECONDS (21.0-31.0) Partial Thromboplastin Ratio 1.0 Anion Gap 7.0 mmol/L (3-11) Est Creatinine Clear Calc Drug Dose 88.0 ml/min Estimated GFR () 97.2 Estimated GFR (Non- 83.8 BUN/Creatinine Ratio 23.6 (10-20) Calcium Level 9.2 mg/dl (8.5-10.1) Magnesium Level 2.2 mg/dl (1.8-2.4) Total Creatine Kinase 48 U/L (39-308) Creatine Kinase MB 1.0 ng/ml (0.5-3.6) Creatine Kinase MB Ratio 2.1 (0-3.0) Troponin I < 0.015 ng/ml (0-0.045) Lactic Acid Level 1.5 mmol/L (0.4-2.0) Bedside Prothrombin Time INR 1.0 (0.9-1.1) Laboratory results per my review. Medications Administered Medications (Trade) Dose Ordered Sig/Raudel Route Start Time Stop Time Status Last Admin Dose Admin Sodium Chloride 1,000 ml @ 50 mls/hr Q20H IV 08/23/17 21:26 09/22/17 21:25 08/23/17 22:05 50 MLS/HR ECG Indication: weakness Rate (beats per minute): 70 Rhythm: atrial flutter (with variable block) Findings: T-wave inversion (Inferior), other (poor baseline) Comparison ECG Date: 22-Woodrow-2017 Change: no significant change ED Course ED COURSE: Vital signs were reviewed and showed hypertension. The patients medical record was reviewed The above diagnostic studies were performed and reviewed. ED treatments and interventions as stated above. 2122: The patient was evaluated in room A9B. A complete history and physical examination was performed. 2125: NSS 1000 ml @ 50 mls/hr IV. 2137: I updated the family. They informed me the symptoms starting around 1999- 2014. 2243: I discussed the patient's case with Dr. Appiah, [facility] neurology. He recommends CTA of head and neck. 2245: I reevaluated the patient. He is going for CT. I updated his family. 2342: Upon reevaluation, the patient is stable. I discussed my findings with the patient's family and they understands and agrees with the treatment plan. Based on the patients age, coexisting illnesses, exam and lab findings the decision to treat as an inpatient was made. The patient remained stable while under my care. The patient will be evaluated for further management. 5: I discussed the patient's case with [place]. Sharma, [facility] [place]. He will evaluate the patient for further management. Medical Decision Differential Diagnosis includes but is not limited to ischemic Stroke, hemorrhagic stroke, bells palsy, mass, neoplasm, migraine headache, seizure, subarachnoid hemorrhage, TIA, and transient global amnesia. Patient is a 72-year-old male who presents to ER with a sudden onset of right- sided deficit at 8 PM. Stroke alert was called. Patient was taken to CT scanner. No intracranial bleed. He takes a Xa inhibitor. Not candidate for TPA. Stroke alert was called for possible intervention. Recommended CTAs. This showed a small right vertebral artery which almost disappears at C2 to C3. Discussed with [place] neurology at 12 AM. This is not consistent with symptoms. Discussed with her internal medicine doctor. Patient was admitted to internal medicine for CVA. Patient family were updated bedside. Patient was admitted to internal medicine for further workup of his CVA, multiple discussions with neurology. Medication Reconcilliation Current Medication List: was personally reviewed by me Blood Pressure Screening Patient's blood pressure: Elevated blood pressure Blood pressure disposition: Referred to PCP Consults Time Called: 2125 Consulting Physician: Dr. Appiah, [facility] neurology Returned Call: [phone] I discussed the patient's case with him. He recommends CTA of head and neck. Additional Consults: Time Called: 2339 Consulted Physician: Dr. Sharma, [facility] [place] Returned Call: [phone] Additional Comments: I discussed the patient's case with him. He will evaluate the patient for further management. Impression Primary Impression: Stroke Critical Care I have personally spent 35 minutes of critical care time in the direct management of this patient. This includes bedside care, interpretation of diagnostic studies, and testing, discussion with consultants, patient, and family members, and other required patient management activities. This 35 minutes is in excess of all separately billable procedures. Scribe Attestation The scribe's documentation has been prepared under my direction and personally reviewed by me in its entirety. I confirm that the note above accurately reflects all work, treatment, procedures, and medical decision making performed by me. Departure Information Dispostion Being Evaluated By Hospitalist Referrals Chanelle Gomez C.R.N.P. (PCP) Patient Instructions My [facility] Problem Qualifiers Primary Impression: Stroke CVA mechanism: unspecified Qualified Codes: I63.9 - Cerebral infarction, unspecified
[2017-08-24] MEDS ORDERED: ONDANSETRON INJ 2 MG/ML 2 ML VIAL IV PRN (01:00)
[2017-08-24] MEDS ORDERED: DC ALL PREVIOUSLY ORDERED DIABETES MEDS ONE (01:00)
[2017-08-24] MEDS ORDERED: PHARMACIST DISCHARGE MED REC CONSULT PRN (01:00)
[2017-08-24] MEDS ORDERED: GLUCOSE 40% GEL 15 GM TUBE PO PRN (01:00)
[2017-08-24] MEDS ORDERED: GLUCOSE 10 TABS/TUBE PO PRN (01:00)
[2017-08-24] MEDS ORDERED: DEXTROSE 50% 50 ML SYR IV PRN (01:00)
[2017-08-24] MEDS ORDERED: GLUCAGON FOR INJ 1 MG VIAL SQ PRN (01:00)
[2017-08-24] MEDS ORDERED: HEPARIN 25000 UNIT/500 ML D5W ONE (01:12)
[2017-08-24] MEDS ORDERED: GADAVIST IV PRN (02:35)
[2017-08-24] MEDS: SODIUM CHLORIDE 0.9% 1000ML 1,000 ML IV SCH ×2 (03:01→13:14)
[2017-08-24] MEDS: AMPICILLIN/SULBACTAM SOD INJ 1,500 MG in SODIUM CHLORIDE 0.9% 100ML 100 ML IV SCH ×4 (03:01→20:12)
[2017-08-24] MEDS: METOPROLOL TARTRATE 1 MG/ML VIAL IV. SCH ×4 (05:37→23:59)
[2017-08-24 05:51] LABS: BASO % 0.2 %; BASO ABS # 0.03 K/uL (0-0.2); COMPLETE YES; EOS % 1.8 %; HEMATOCRIT 44.9 % (42-52); IG% 0.9 %; LYMPH % 29.5 %; LYMPH ABS # 3.87 K/uL (1.2-3.4); MEAN CELL VOLUME 84.9 fL (80-100); MEAN CORPUSCULAR HEMOGLOBIN 28.9 pg (25-34); MEAN CORPUSCULAR HGB CONC 34.1 g/dl (32-36); MEAN PLATELET VOLUME 9.6 fL (7.4-10.4); MONO % 7.7 %; NEUT % 59.9 %; PLATELET COUNT 221 K/uL (130-400); RED BLOOD COUNT 5.29 M/uL (4.7-6.1)
[2017-08-24] MEDS: ASPIRIN 300 MG SUPP PR STA ×2 (06:23→06:50)
[2017-08-24 06:37] LABS: BUN/CREATININE RATIO 16.2 (10-20); CALCIUM 8.9 mg/dl (8.5-10.1); CHOLESTEROL/HDL RATIO 7.1; CREATININE 0.96 mg/dl (0.60-1.40); POTASSIUM 3.8 mmol/L (3.5-5.1)
[2017-08-24] MEDS: HYDROCORTISONE IV 100 MG in SYRINGE 0 ML IV SCH ×2 (06:50→15:09)
--- NOTE | 2017-08-24 06:54 | DIAGNOSTIC IMAGING REPORT ---
NECK ANGIO WITH CONTRAST CLINICAL HISTORY: 72 years-old Male presenting with stroke symptoms, unable to speak, unable to swallow, incoherent. TECHNIQUE: Multidetector CT angiography of the neck was performed after the administration of intravenous contrast. 3-D volumetric and/or maximum intensity projection (MIP) images were subsequently reconstructed for review. IV contrast: 94 mL of Optiray 320. A dose lowering technique was used consistent with the principles of ALARA (as low as reasonably achievable). Stenosis measurements were based on NASCET-like criteria. COMPARISON: None. CT DOSE (mGy.cm): The estimated cumulative dose is 622.79 inclusive of the CTA head. FINDINGS: Rn Angiography topogram: Left subclavian central line in place. Vasculature: Common origin of the innominate and left common carotid artery at the two-vessel aortic arch. Atherosclerosis of the aortic arch. Calcified and noncalcified atherosclerotic plaque of the carotid arteries without significant stenosis. Plaque is most densely apparent at the carotid bulbs, right greater than left. Mild irregularity of the horizontal petrous portion of the left internal carotid artery secondary to noncalcified atherosclerotic plaque (series 4 image 476). The right vertebral artery is visualized at the level of C1-2 and is diminutive in appearance. The more proximal portion of the right vertebral artery is either hypoplastic or poorly opacified. The origin of the right vertebral artery is also not opacified. The left vertebral artery is patent at its origin and along its course. Dominant left vertebral artery. Please see separately dictated CTA of the head for intracranial findings. Remaining neck: Scattered small cervical lymph nodes, likely reactive. Few subcentimeter hypodense nodules in the thyroid. Mucosal thickening in the left maxillary sinus postsurgical changes of the right mastoid air cells. Fluid noted in the left mastoid air cells. Multilevel degenerative changes of the spine. Scattered groundglass opacity in the lungs with suggestion of smooth interlobular septal thickening. Small right pleural effusion. IMPRESSION: 1. Nonopacification of the origin and proximal to mid course of the right vertebral artery to the level of C1-2. Opacification of the diminutive right vertebral artery above the level of C1-2. This could represent dissection of the cervical portion of the right vertebral artery, although absence of filling of the origin of the right vertebral artery could suggest a more chronic condition or congenital hypoplasia. If there is clinical concern for dissection, short-term follow-up CTA of the neck could be considered to evaluate for evolution. 2. Groundglass opacities in the lungs could represent pulmonary edema among other diagnostic considerations. 3. Small right pleural effusion. Electronically signed by: Star Vargas M.D. 08/24/2017 6:53 AM Dictated Date/Time: 08/24/2017 6:38 AM
[2017-08-24] MEDS: INSULIN ASPART 100 UNITS/ML 3 ML PEN SC SCH ×4 (07:00→20:28)
--- NOTE | 2017-08-24 07:18 | DIAGNOSTIC IMAGING REPORT ---
Brain MRI WITH AND WITHOUT CONTRAST HISTORY: Stroke TECHNIQUE: Multiplanar multisequence MRI of the brain was performed both before and after the intravenous administration of contrast. COMPARISON STUDY: Head CT 08/23/2017. FINDINGS: There is no mass, hematoma, midline shift, or acute infarct. The left maxillary sinus demonstrates a trace fluid level. Opacified left mastoid air cells are again noted. The ventricles and sulci demonstrate mild age-related involutional changes. Scattered foci of T2 hyperintensity seen within the periventricular and subcortical white matter are nonspecific but suggestive of moderate microvascular ischemic changes. The major vascular flow voids at the skull base are well-maintained. Old lacunar infarcts within the right cerebellar hemisphere IMPRESSION: No acute intracranial abnormality. Scattered foci of T2 hyperintensity seen within the periventricular and subcortical white matter are nonspecific but favor microvascular ischemic change. Electronically signed by: Piotr Rivera M.D. 08/24/2017 7:17 AM Dictated Date/Time: 08/24/2017 7:10 AM
--- NOTE | 2017-08-24 07:26 | DIAGNOSTIC IMAGING REPORT ---
HEAD CTA HISTORY: Stroke symptoms. Unable to speak. TECHNIQUE: Multiaxial CT images of the head were performed after the intravenous administration of contrast to evaluate the major cerebral vessels. Maximum intensity projection images were also obtained. A dose lowering technique was utilized adhering to the principles of ALARA. COMPARISON: Head CT 08/23/2017. FINDINGS: There is no mass, hematoma, midline shift, or acute infarct. Diminutive/hypoplastic basilar artery most pronounced distally. Severely hypoplastic right P1 segment. Otherwise, the bilateral sticker machine operator, ACAs, MCAs show no significant stenosis, occlusion, or aneurysm. Severely narrowed/hypoplastic distal right vertebral artery at the C1 level. Otherwise, the distal vertebral arteries are patent. IMPRESSION: 1. Severely narrowed/hypoplastic distal right vertebral artery at the C1 level. This is better appreciated on the same day neck CTA. 2. Diminutive/hypoplastic basilar artery most pronounced distally. Electronically signed by: Piotr Rivera M.D. 08/24/2017 7:25 AM Dictated Date/Time: 08/24/2017 7:20 AM
--- NOTE | 2017-08-24 08:08 | History and Physical ---
History & Physical Date & Time of Service: Aug 24, 2017 at 00:14 Chief Complaint: Stroke Sx Primary Care Physician: Chanelle Gomez C.R.NChaniPChani History of Present Illness Source: patient, clinic records, hospital records Mr Anderson is a 72 year old right handed male with atrial fibrillation and type 2 diabetes mellitus who presents to the ER with trouble speaking. The episode happened while sitting at the table around 8pm last night. He was drinking coffee and suddenly started coughing up his coffee and having problems breathing. His witnessed the event and the patient was conscious and aware of everything throughout. This lasted for only a few minutes then he found himself unable to speak and his family noticed a left sided facial droop so called for an ambulance. His family also note he was having problems squeezing with his left hand with the EMS. Since then he has been able to say his name and age but not much more. He was unable to say any words to myself but could understand three step commands. His family also feel he is not understanding as well as normal. He denies any change in vision or hearing. He felt well before this episode and denies any chest pain, shortness of breath , palpitations. His notes he is currently on a tapering dose of steroids due to interstitial lung disease. He is on 2L O2 at night at home. He has known atrial fibrillation but has been taking his Xarelto every other day due to the cost of this medication. Past Medical/Surgical History Medical Problems: (1) Arthritis Status: Chronic (2) Diabetes Status: Chronic (3) Heart disease Status: Chronic (4) High cholesterol Status: Chronic (5) Hypertension Status: Chronic (6) Myocardial infarction Status: Resolved Surgical Problems: (1) S/P shoulder surgery Status: Resolved Family History Cancer Diabetes mellitus Heart disease Hypertension Social History Smoking Status: Former Smoker Marital Status: Housing status: lives with significant other Occupational Status: retired Immunizations History of Influenza Vaccine: Unknown History of Tetanus Vaccine?: Unknown History of Pneumococcal: Unknown History of Hepatitis B Vaccine: Unknown Multi-Drug Resistant Organisms History of MDRO: No Allergies Coded Allergies: No Known Allergies (Verified , 08/23/17) Home Medications Scheduled Ascorbic Acid (Vitamin C), 1,000 MG PO QAM Aspirin (Aspirin EC Low Dose), 81 MG PO QAM Atorvastatin (Lipitor), 40 MG PO QAM Cholecalciferol (Vitamin D), 2,000 INTER.UNIT PO QAM Cholestyramine (Cholestyramine), 4 GM PO QPM Doxazosin Mesylate (Doxazosin Mesylate), 2 MG PO QAM Furosemide (Furosemide), 40 MG PO DAILY Home O2 Therapy (Oxygen), 4 LITERS NA UD Insulin Glargine (Lantus Solostar), 8 UNITS SC QPM Krill Oil (Krill Oil), 1 CAP PO QAM Metformin Hcl (Glucophage), 500 MG PO bid with meals Metoprolol Succinate (Metoprolol Succinate ER), 50 MG PO QAM Multiple Vitamin (Multivitamin), 1 TAB PO QAM Prednisone (Prednisone), 7.5 MG PO DAILY Vitamin A (Vitamin A), 8,000 INTER.UNIT PO QAM Vitamin E (Vitamin E 400 Iu), 400 INTER.UNIT PO QAM Warfarin Sod (Jantoven), 5 MG PO DAILY Scheduled PRN Temazepam (Restoril), 15 MG PO HS PRN for Sleep Miscellaneous Medications Trazodone Hcl (Trazodone), 100 MG PO Review of Systems Constitutional: No fever, No chills Eyes: No worsening of vision ENT: No hearing loss Respiratory: + cough, + sputum, No wheezing, No shortness of breath, No hemoptysis Cardiovascular: + edema (chronic, no worse than usual as per his ), No chest pain, No orthopnea, No PND Abdomen: No pain, No nausea, No vomiting, No diarrhea, No constipation, No GI bleeding Musculoskeletal: No joint pain, No muscle pain Genitourinary - Male: No hematuria, No dysuria, No urinary frequency Neurologic: No memory loss, No weakness, No numbness/tingling, No vertigo, No balance problems Endocrine: No fatigue Hematologic / Lymphatic: No abnormal bleeding/bruising Integumentary: No rash, No itch Physical Exam Vital Signs Date Time Temp Pulse Resp B/P (MAP) Pulse Ox O2 Delivery O2 Flow Rate FiO2 08/23/17 23:16 72 18 128/92 93 08/23/17 23:13 130/85 08/23/17 22:46 170/113 08/23/17 22:42 68 26 94 08/23/17 22:31 161/102 11/5/17 22:15 153/97 08/23/17 22:12 79 16 94 08/23/17 22:07 134/96 08/23/17 22:06 71 20 134/96 94 Room Air 08/23/17 22:02 181/157 08/23/17 21:47 170/97 08/23/17 21:44 71 08/23/17 21:42 72 22 96 08/23/17 21:34 125/86 08/23/17 21:27 37.3 68 20 167/95 94 Room Air 08/23/17 21:27 94 Room Air 08/23/17 21:14 167/95 General Appearance: WD/WN, no apparent distress Head: normocephalic, atraumatic Eyes: normal inspection, PERRL, EOMI ENT: normal ENT inspection, pharynx normal Neck: supple, no JVD, trachea midline Respiratory/Chest: chest non-tender, no respiratory distress, no accessory muscle use, + crackles (bibasal coarse crackles R=L) Cardiovascular: no murmur, normal peripheral pulses, + irregularly irregular Abdomen/GI: normal bowel sounds, non tender, soft Back: no CVA tenderness Extremities/Musculoskelatal: no calf tenderness, normal capillary refill, + pedal edema (1+ b/l up to shins) Neurologic/Psych: no motor/sensory deficits (motor, sensory or co-ordination intact upper and lower limbs (somewhat limited due to previous rotator cuff injuries of both shoulders), no pronator drift), alert, oriented x 3, + abnormal correctional officer captain II-XII (expressive aphasia evident, some problems understanding simple commands but generally can co-operate (Nb examination was at 1:00am), all other cranial nerves intact with right hearing aid in place) Skin: normal color, warm/dry, no rash Diagnostics Laboratory Results Results Past 24 Hours Test 08/23/17 21:37 08/23/17 21:38 08/23/17 21:39 Range/Units White Blood Count 13.12 4.8-10.8 K/uL Red Blood Count 5.28 4.7-6.1 M/uL Hemoglobin 15.7 14.0-18.0 g/dL Hematocrit 44.8 42-52 % Mean Corpuscular Volume 84.8 80-100 fL Mean Corpuscular Hemoglobin 29.7 25-34 pg Mean Corpuscular Hemoglobin Concent 35.0 32-36 g/dl Platelet Count 220 130-400 K/uL Mean Platelet Volume 9.6 7.4-10.4 fL Neutrophils (%) (Auto) 64.1 % Lymphocytes (%) (Auto) 25.0 % Monocytes (%) (Auto) 8.6 % Eosinophils (%) (Auto) 1.2 % Basophils (%) (Auto) 0.4 % Neutrophils # (Auto) 8.41 1.4-6.5 K/uL Lymphocytes # (Auto) 3.28 1.2-3.4 K/uL Monocytes # (Auto) 1.13 0.11-0.59 K/uL Eosinophils # (Auto) 0.16 0-0.5 K/uL Basophils # (Auto) 0.05 0-0.2 K/uL RDW Standard Deviation 44.6 36.4-46.3 fL RDW Coefficient of Variation 14.5 11.5-14.5 % Immature Granulocyte % (Auto) 0.7 % Immature Granulocyte # (Auto) 0.09 0.00-0.02 K/uL Prothrombin Time 10.9 9.0-12.0 SECONDS Prothromb Time International Ratio 1.0 0.9-1.1 Activated Partial Thromboplast Time 26.6 21.0-31.0 SECONDS Partial Thromboplastin Ratio 1.0 Sodium Level 137 136-145 mmol/L Potassium Level 4.8 3.5-5.1 mmol/L Chloride Level 105 98-107 mmol/L Carbon Dioxide Level 25 21-32 mmol/L Anion Gap 7.0 3-11 mmol/L Blood Urea Nitrogen 21 7-18 mg/dl Creatinine 0.90 0.60-1.40 mg/dl Est Creatinine Clear Calc Drug Dose 88.0 ml/min Estimated GFR () 97.2 Estimated GFR (Non- 83.8 BUN/Creatinine Ratio 23.6 10-20 Random Glucose 105 70-99 mg/dl Calcium Level 9.2 8.5-10.1 mg/dl Magnesium Level 2.2 1.8-2.4 mg/dl Total Creatine Kinase 48 39-308 U/L Creatine Kinase MB 1.0 0.5-3.6 ng/ml Creatine Kinase MB Ratio 2.1 0-3.0 Troponin I < 0.015 0-0.045 ng/ml Lactic Acid Level 1.5 0.4-2.0 mmol/L Bedside Prothrombin Time INR 1.0 0.9-1.1 Diagnostic Radiology SINGLE VIEW CHEST CLINICAL HISTORY: Strokelike symptoms. FINDINGS: An AP, portable, upright chest radiograph is compared to study dated 03/30/2017. The heart is enlarged and there is atherosclerotic calcification of the thoracic aorta. There is pulmonary vascular congestion. Mild bibasilar atelectasis is observed. There is no airspace consolidation or large pleural effusion. No pneumothorax is seen. The skeletal structures are osteopenic. The bony thorax is grossly intact. Postoperative change is noted in the left humeral head. IMPRESSION: Cardiomegaly with evidence of mild congestive failure. Electronically signed by: Ion Chauhan M.D. 08/23/2017 9:57 PM Dictated Date/Time: 08/23/2017 9:[address] SCAN OF THE BRAIN WITHOUT IV CONTRAST CLINICAL HISTORY: Strokelike symptoms. COMPARISON STUDY: No priors. TECHNIQUE: Unenhanced axial CT scan of the brain is performed from the vertex to the skull base. CT DOSE: 709.48 mGy.cm FINDINGS: Brain parenchyma: There are age-related involutional changes noting moderate subcortical and periventricular microangiopathic change. There is no hemorrhage, mass effect, or evidence of acute territorial ischemia by CT criteria. A chronic lacunar infarct is seen in the right cerebellar hemisphere. Juarez-white matter is preserved. No extra-axial fluid collection is seen. Ventricles, sulci, cisterns: Prominent secondary to involutional change. Intracranial vasculature: There is atherosclerotic calcification of the cavernous carotid and vertebral arteries. Calvarium: Unremarkable. Sinuses and mastoids: A tiny air-fluid level is seen in the left maxillary antrum. The remaining visualized paranasal sinuses are clear. There is evidence of previous right mastoid surgery. A large left mastoid effusion is noted. Orbits: The bony orbits are grossly intact. IMPRESSION: Senescent changes as above with no hemorrhage, mass effect, or evidence of acute territorial ischemia by CT criteria. Electronically signed by: Ion Chauhan M.D. 08/23/2017 9:38 PM Dictated Date/Time: 08/23/2017 9:36 PM NECK ANGIO WITH CONTRAST CLINICAL HISTORY: 72 years-old Male presenting with stroke symptoms, unable to speak, unable to swallow, incoherent. TECHNIQUE: Multidetector CT angiography of the neck was performed after the administration of intravenous contrast. 3-D volumetric and/or maximum intensity projection (MIP) images were subsequently reconstructed for review. IV contrast: 94 mL of Optiray 320. A dose lowering technique was used consistent with the principles of ALARA (as low as reasonably achievable). Stenosis measurements were based on NASCET-like criteria. COMPARISON: None. CT DOSE (mGy.cm): The estimated cumulative dose is 622.79 inclusive of the CTA head. FINDINGS: Cavalry Officer topogram: Left subclavian central line in place. Vasculature: Common origin of the innominate and left common carotid artery at the two-vessel aortic arch. Atherosclerosis of the aortic arch. Calcified and noncalcified atherosclerotic plaque of the carotid arteries without significant stenosis. Plaque is most densely apparent at the carotid bulbs, right greater than left. Mild irregularity of the horizontal petrous portion of the left internal carotid artery secondary to noncalcified atherosclerotic plaque (series 4 image 476). The right vertebral artery is visualized at the level of C1-2 and is diminutive in appearance. The more proximal portion of the right vertebral artery is either hypoplastic or poorly opacified. The origin of the right vertebral artery is also not opacified. The left vertebral artery is patent at its origin and along its course. Dominant left vertebral artery. Please see separately dictated CTA of the head for intracranial findings. Remaining neck: Scattered small cervical lymph nodes, likely reactive. Few subcentimeter hypodense nodules in the thyroid. Mucosal thickening in the left maxillary sinus postsurgical changes of the right mastoid air cells. Fluid noted in the left mastoid air cells. Multilevel degenerative changes of the spine. Scattered groundglass opacity in the lungs with suggestion of smooth interlobular septal thickening. Small right pleural effusion. IMPRESSION: 1. Nonopacification of the origin and proximal to mid course of the right vertebral artery to the level of C1-2. Opacification of the diminutive right vertebral artery above the level of C1-2. This could represent dissection of the cervical portion of the right vertebral artery, although absence of filling of the origin of the right vertebral artery could suggest a more chronic condition or congenital hypoplasia. If there is clinical concern for dissection, short-term follow-up CTA of the neck could be considered to evaluate for evolution. 2. Groundglass opacities in the lungs could represent pulmonary edema among other diagnostic considerations. 3. Small right pleural effusion. Electronically signed by: Star Vargas M.D. 08/24/2017 6:53 AM Dictated Date/Time: 08/24/2017 6:38 AM HEAD CTA HISTORY: Stroke symptoms. Unable to speak. TECHNIQUE: Multiaxial CT images of the head were performed after the intravenous administration of contrast to evaluate the major cerebral vessels. Maximum intensity projection images were also obtained. A dose lowering technique was utilized adhering to the principles of ALARA. COMPARISON: Head CT 08/23/2017. FINDINGS: There is no mass, hematoma, midline shift, or acute infarct. Diminutive/hypoplastic basilar artery most pronounced distally. Severely hypoplastic right P1 segment. Otherwise, the bilateral medical assistant instructor, ACAs, MCAs show no significant stenosis, occlusion, or aneurysm. Severely narrowed/hypoplastic distal right vertebral artery at the C1 level. Otherwise, the distal vertebral arteries are patent. IMPRESSION: 1. Severely narrowed/hypoplastic distal right vertebral artery at the C1 level. This is better appreciated on the same day neck CTA. 2. Diminutive/hypoplastic basilar artery most pronounced distally. Electronically signed by: Piotr Rivera M.D. 08/24/2017 7:25 AM Dictated Date/Time: 08/24/2017 7:20 AM EKG Atrial fibrillation with RVR rate Possible inferior infarct previous noted on previous EKGs No significant change when compared with ECG of 09-NOV-2016 06:14 Impression Assessment and Plan 72 year old male presents with aspiration and sudden onset aphasia CVA - CT head negative, CTA - questionable right vertebral artery changes which would not explain his symptoms - not for tPA as per stroke consult with ER physician Dr Sifuentes - stroke order set initiated - MRI Brain - Echo - consult neurology in morning - NPO with speech and language therapy consult in morning - restart atorvastatin if able to swallow with above assessment Atrial fibrillation - hold xarelto and start heparin standard dose no bolus - hold oral metoprolol due to NPO, start metoprolol IV Q6H 5mg and monitor HR and BP Chronic Diastolic Congestive heart failure - I&Os, gentle hydration only as NPO, if becoming more short of breath likely some fluid overload - hold lasix oral and dose IV as required pending clinical course Aspiration pneumonia/pneumonitis - cover for pneumonia with Unasyn - speech and language as above Interstitial lung disease - switch prednisone to IV hydrocortisone stress dose 100 mg Q6H ARAM, can be tapered as per response T2DM - hold metoformin - ACHS/Q6H BSG - Lantus 8 units BID - Insulin Aspart sliding scale 25 correction, 8g carb ratio - likely insulin requirements to increase due to IV steroids - HbA1C in morning Dyslipidemia - continue atorvastatin when able to take oral meds - fasting lipid profile in morning Attending addendum: I have physically seen this patient, have supervised the medical residents activities, and agree with the H&P unless as otherwise noted. Assessment and Plan: CVA-- Initially seen as a stroke alert, with no aggressive intervention per stroke neurology consult at [facility]. The patient will be admitted to telemetry for serial cardiac enzymes, cardiac rhythm monitoring and a 2-D echocardiogram with Dopplers. Order MRI of brain combo, MRA of neck combo, an MRA of head without contrast. Consult speech therapy/PT/OT/social work job titles/neurology. Nothing by mouth status until cleared by speech. Atrial fibrillation/chronic diastolic CHF-- Hold oral medications while nothing by mouth: Xarelto and metoprolol. Start metoprolol 5 mg IV every 6 hours with hold parameters. Aspiration pneumonitis/ILD-- Unasyn 3 g IV every 6 hours. Hydrocortisone 100 mg IV every 6 hours for stress dose response Diabetes mellitus-- Hold metformin. Lantus 8 units subcutaneous twice a day. Place on Accu-Cheks before meals and at bedtime with NovoLog coverage per scale. Follow closely while on stress dose steroids. Dyslipidemia-- Hold atorvastatin until taking by mouth Level of Care Telemetry Advanced Directives Existing Advance Directive: No Existing Living Will: No Existing Power of Hand Former: No Resuscitation Status FULL RESUSCITATION (as discussed with patient) VTE Prophylaxis VTE Risk Assessment Done? Y/N: Yes Risk Level: Moderate Given or contraindicated: Other Anticoagulation (heparin IV) Additional Copies To Chanelle Gomez C.R.N.P. Resident Tracking Resident Involvement: Resident Care Provided Care Provided: Adult [facility]
[2017-08-24 08:23] LABS: PARTIAL THROMBOPLASTIN RATIO 1.7
[2017-08-24] MEDS ORDERED: INSULIN GLARGINE SOLOSTAR 100 UNITS/ML 3 ML PEN SC SCH (09:00)
[2017-08-24 09:02] LABS: ESTIMATED AVERAGE GLUCOSE 128 mg/dl; HA1C FLAG Normal (Normal)
--- NOTE | 2017-08-24 09:05 | ECHOCARDIOGRAM REPORT ---
*NOTICE TO RECEIVING LIBERTARIAN AGENCY This information is strictly Confidential and protected under [place] law. [place] law prohibits you from making any further disclosure of this information unless further disclosure is expressly permitted by the written consent of the person to whom it pertains or is authorized by law. A general authorization for the release of medical or other information is not sufficient for this purpose. Hospital accepts no responsibility if the information is made available to any other person, INCLUDING THE PATIENT. Interpretation Summary * Name: JOSE E SCHULTZ Study Date: 08/24/2017 07:24 AM BP: 164/102 mmHg * Patient Location: [facility] HR: 68 * : 1945 (M/d/yyyy) Gender: Male Height: 71 in * Age: 72 yrs Ethnicity: CA Weight: 227 lb * Ordering Physician: Jose Gardner * Referring Physician: Self, Referred * Performed By: Duyen Armenta RCS * * Reason For Study: CEREBRAL ISCHEMIA / EMBOLUS * BSA: 2.2 m2 * -- Conclusions -- * There is mild concentric left ventricular hypertrophy. * Left ventricular systolic function is normal. * The left atrium is severely dilated. * The right atrium is moderately dilated. * Aortic valve sclerosis moderate, without significant aortic valvular stenosis. * There is moderate mitral regurgitation. * Right ventricular systolic pressure is elevated at 30-40mmHg. * Compared to an echocardiogram obtained in 10/2016, the pulmonary pressures measure slightly higher otherwise there is minimal change Procedure Details * A complete two-dimensional transthoracic echocardiogram was performed (2D, M-mode, Doppler and color flow Doppler). * A saline contrast injection was performed to assess for cardiac shunting. * The injection was performed through an intravenous line in the left arm. * The attending nurse who injected the saline contrast was IVETTE ALCARAZ, RN. * A total of 20 cc of agitated saline was given. Left Ventricle * The left ventricle is normal in size. * There is mild concentric left ventricular hypertrophy. * Left ventricular systolic function is normal. * Ejection Fraction = 55-60%. * The left ventricular wall motion is normal. Right Ventricle * The right ventricle is grossly normal size. * The right ventricular systolic function is borderline reduced. Atria * The left atrium is severely dilated. * The right atrium is moderately dilated. Mitral Valve * The mitral valve anatomy is normal. * There is moderate mitral regurgitation. Tricuspid Valve * The tricuspid valve anatomy is normal. * There is mild tricuspid regurgitation. * Right ventricular systolic pressure is elevated at 30-40mmHg. Aortic Valve * Aortic valve sclerosis moderate, without significant aortic valvular stenosis. * No hemodynamically significant valvular aortic stenosis. * There is no significant aortic regurgitation. Great Vessels * The aortic root is normal size. Pericardium/Pleural * There is no pericardial effusion. Great Vessels * Normal inferior vena cava diameter and respiratory variation suggests normal central venous pressure. MMode 2D Measurements and Calculations IVSd 1.4 cm IVSs 1.8 cm LVIDd 5.0 cm LVIDs 3.9 cm LVPWd 1.5 cm LVPWs 1.6 cm IVS/LVPW 0.96 FS 21.5 % EDV(Teich) 118.5 ml ESV(Teich) 67.1 ml EF(Teich) 43.4 % EDV(cubed) 125.4 ml ESV(cubed) 60.7 ml EF(cubed) 51.6 % % IVS thick 24.5 % % LVPW thick 3.7 % LV mass(C)d 316.1 grams LV mass(C)dI 142.1 grams/m\S\2 LV mass(C)s 273.2 grams LV mass(C)sI 122.8 grams/m\S\2 SV(Teich) 51.4 ml SI(Teich) 23.1 ml/m\S\2 SV(cubed) 64.7 ml SI(cubed) 29.1 ml/m\S\2 Ao root diam 3.3 cm Ao root area 8.4 cm\S\2 ACS 2.0 cm LA dimension 6.0 cm LA/Ao 1.8 LVOT diam 2.0 cm LVOT area 3.1 cm\S\2 EDV(MOD-sp4) 113.0 ml ESV(MOD-sp4) 56.0 ml EF(MOD-sp4) 50.4 % EDV(MOD-sp2) 100.0 ml ESV(MOD-sp2) 51.0 ml EF(MOD-sp2) 49.0 % SV(MOD-sp4) 57.0 ml SI(MOD-sp4) 25.6 ml/m\S\2 SV(MOD-sp2) 49.0 ml SI(MOD-sp2) 22.0 ml/m\S\2 Doppler Measurements and Calculations MV E max agnes 110.5 cm/sec MV P1/2t max agnes 127.5 cm/sec MV P1/2t 76.8 msec MVA(P1/2t) 2.9 cm\S\2 MV dec slope 486.6 cm/sec\S\2 MV dec time 0.24 sec Ao V2 max 142.4 cm/sec Ao max PG 8.1 mmHg Ao max PG (full) 6.3 mmHg MAEGAN(V,A) 1.5 cm\S\2 MAEGAN(V,D) 1.5 cm\S\2 LV V1 max PG 1.8 mmHg LV V1 max 66.3 cm/sec MR max agnes 552.3 cm/sec MR max PG 122.1 mmHg PA V2 max 63.3 cm/sec PA max PG 1.6 mmHg TR max agnes 284.3 cm/sec
--- NOTE | 2017-08-24 09:38 | Neurology Consultation ---
Neurology Consultation Date of Consultation: Aug 24, 2017. Attending Physician: Herb Sharma M.D. Primary Care Physician: Chanelle Gomez C.RChaniNKarmon Reason for Consultation: TIA History of Present Illness Source: patient, hospital records The patient is a 72-year-old male who presented to the emergency department last night with a complaint of right-sided weakness and change in speech that began acutely 1-2 hours prior to arrival. While in the emergency department he was observed to have an expressive aphasia with associated weakness of the right side of the face and arm. These symptoms have subsequently resolved, however. This patient does have a history of atrial fibrillation for which she is prescribed Xarelto. He does admit to medication noncompliance and states that he had been taking this medication only every other day as he had been experiencing frequent nosebleeds. He apparently has not discussed this issue with his physician. The patient currently denies any headache or weakness of the limbs. He believes his speech has returned to baseline. Past medical history is also notable for diabetes mellitus, hypertension, coronary artery disease, and alcohol abuse. Patient has not consumed alcohol since October of this year. The emergency department record indicates that a tele-stroke consultation was obtained for this patient although he was not considered an appropriate candidate for TPA as he has been taking Xarelto (although only every other day). I reviewed the images as well as the radiologist's interpretation of the recently completed brain MRI. The study is negative for any changes suggestive of acute or subacute stroke. There is rather extensive chronic microvascular ischemic disease throughout the cerebral hemispheres. CT angiography of the head and neck has also been completed. 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 This finding has been considered incidental in the sense that it would not explain his presenting symptoms. Past Medical/Surgical History Medical Problems: (1) Hypoxia Status: Acute (2) New onset atrial fibrillation Status: Acute (3) Pneumonia Status: Acute (4) Stroke Status: Acute Family History Family history notable for diabetes mellitus and hypertension Social History Marital Status: Housing Status: lives with significant other Occupation Status: retired Allergies Coded Allergies: No Known Allergies (Verified , 08/23/17) Current Inpatient Medications Current Inpatient Medications Medications (Trade) Dose Ordered Sig/Raudel Route Start Time Stop Time Status Last Admin Dose Admin Ioversol (Optiray 320) 100 ml UD PRN IV 08/23/17 23:00 08/27/17 22:59 Miscellaneous Information (Pharmacist Discharge Med Rec Consult) 1 ea UD PRN N/A 08/24/17 01:00 09/23/17 00:59 Sodium Chloride 1,000 ml @ 100 mls/hr Q10H IV 08/24/17 03:00 09/23/17 02:59 08/24/17 03:01 100 MLS/HR Ondansetron HCl (Zofran Inj) 4 mg Q6H PRN IV 08/24/17 01:00 09/23/17 00:59 Insulin Glargine (Lantus Solostar Pen) 8 units Q12 SC 08/24/17 09:00 09/23/17 08:59 Insulin Aspart (novoLOG ASPART) SLIDING SCALE If C... ACHS SC 08/24/17 07:00 09/23/17 06:59 Glucose (Glucose 40% Gel) 15-30 GRAMS 15 GRAMS... UD PRN PO 08/24/17 01:00 09/23/17 00:59 Glucose (Glucose Chew Tab) 4-8 Tablets 4 Tabl... UD PRN PO 08/24/17 01:00 09/23/17 00:59 Dextrose (Dextrose 50% 50ML Syringe) 25-50ML OF 50% DW IV FOR... UD PRN IV 08/24/17 01:00 09/23/17 00:59 Glucagon (Glucagon Inj) 1 mg UD PRN SQ 08/24/17 01:00 09/23/17 00:59 Metoprolol Tartrate (Lopressor Iv) 5 mg Q6 IV. 08/24/17 06:00 09/23/17 05:59 08/24/17 05:37 5 MG Ampicillin Sodium/ Sulbactam Sodium 1500 mg/Sodium Chloride 104 ml @ 200 mls/hr Q6H IV 08/24/17 02:00 08/31/17 01:59 08/24/17 03:01 200 MLS/HR Heparin Sodium/ Dextrose 500 ml @ 31 mls/hr Q16H8M PRN IV 08/24/17 02:00 09/23/17 01:59 Gadobutrol (Gadavist) 10 mmol UD PRN IV 08/24/17 02:35 08/28/17 02:34 Hydrocortisone Sodium Succinate 100 mg/Syringe 2 ml @ 4 mls/min Q8H IV 08/24/17 06:30 09/23/17 06:29 08/24/17 06:50 4 MLS/MIN Review of Systems Constitutional: No fever or chills Eyes: No vision loss or diplopia ENT: No vertigo or hearing loss Cardiovascular: No chest pain or palpitations Respiratory: No coughing wheezing or shortness of breath Neurological: As per history of present illness Hematologic: Frequent nosebleeds as indicated in the history of present illness A full 10 point review of systems was obtained in this patient with pertinent positives and negatives described in the history of present illness and otherwise listed above. All remaining systems reviewed and are negative. Physical Exam Vital Signs (Past 24 Hrs): Date Time Temp Pulse Resp B/P (MAP) Pulse Ox O2 Delivery O2 Flow Rate FiO2 08/24/17 07:44 36.5 69 20 136/92 (107) 90 Room Air 08/24/17 05:37 73 152/92 08/24/17 04:00 93 Room Air 08/24/17 02:58 36.8 78 20 164/102 (122) 93 Room Air 08/24/17 01:50 Room Air 08/24/17 01:12 77 08/24/17 00:51 77 18 92 08/24/17 00:46 154/90 08/24/17 00:32 167/95 08/24/17 00:21 87 24 91 08/24/17 00:16 165/90 08/24/17 00:01 151/92 08/23/17 23:51 76 24 94 08/23/17 23:46 162/90 08/23/17 23:30 148/82 08/23/17 23:21 73 18 93 08/23/17 23:16 72 18 128/92 93 08/23/17 23:13 130/85 08/23/17 22:46 170/113 08/23/17 22:42 68 26 94 08/23/17 22:31 161/102 08/23/17 22:15 153/97 08/23/17 22:12 79 16 94 08/23/17 22:07 134/96 08/23/17 22:06 71 20 134/96 94 Room Air 08/23/17 22:02 181/157 08/23/17 21:47 170/97 08/23/17 21:44 71 08/23/17 21:42 72 22 96 08/23/17 21:34 125/86 08/23/17 21:27 37.3 68 20 167/95 94 Room Air 08/23/17 21:27 94 Room Air 08/23/17 21:14 167/95 The patient is a well-developed elderly male. He is lying comfortably in bed in no acute distress. Patient is alert and oriented to person place and time. Recent and remote memory intact. Attention and concentration normal. Patient exhibits a normal spontaneous speech pattern. He is able to name objects and repeat phrases without difficulty. Patient exhibits an age-appropriate fund of knowledge and normal vocabulary. Visual cornell full to confrontation. Visual acuity normal. Pupils equal round reactive to light and accommodation. Eye movements normal. There is no nystagmus. Facial sensation intact bilaterally. There is no facial droop. Hearing intact to finger rub bilaterally. Palate elevates to midline. Shoulder shrug strength intact bilaterally. Tongue protrudes to midline. Sensation intact to light touch, temperature, vibration, and proprioception for all 4 limbs. Deep tendon reflexes are intact and symmetrical for the arms and legs. There is no dysdiadochokinesia or dysmetria with finger to nose or heel to read bilaterally. Ophthalmoscopic examination reveals normal-appearing optic disks and posterior segments. No papilledema or hemorrhages. Carotid pulses normal bilaterally, no bruits to auscultation. Gait and station cannot be tested due to safety concerns. Muscle strength and tone normal for the arms and legs bilaterally. There is no atrophy. No abnormal movements observed. Laboratory Results Past 24 Hours: 08/24/17 05:16 Red Blood Count 5.29, Mean Corpuscular Volume 84.9, Mean Corpuscular Hemoglobin 28.9, Mean Corpuscular Hemoglobin Concent 34.1, Mean Platelet Volume 9.6, Neutrophils (%) (Auto) 59.9, Lymphocytes (%) (Auto) 29.5, Monocytes (%) (Auto) 7.7, Eosinophils (%) (Auto) 1.8, Basophils (%) (Auto) 0.2, Neutrophils # (Auto) 7.83, Lymphocytes # (Auto) 3.87, Monocytes # (Auto) 1.01, Eosinophils # (Auto) 0.24, Basophils # (Auto) 0.03 08/24/17 05:16 Test 08/23/17 21:36 08/23/17 21:37 08/23/17 21:38 08/23/17 21:39 Bedside Glucose 95 mg/dl (70-99) Prothrombin Time 10.9 SECONDS (9.0-12.0) Prothromb Time International Ratio 1.0 (0.9-1.1) Magnesium Level 2.2 mg/dl (1.8-2.4) Total Creatine Kinase 48 U/L (39-308) Creatine Kinase MB 1.0 ng/ml (0.5-3.6) Creatine Kinase MB Ratio 2.1 (0-3.0) Troponin I < 0.015 ng/ml (0-0.045) Lactic Acid Level 1.5 mmol/L (0.4-2.0) Bedside Prothrombin Time INR 1.0 (0.9-1.1) Test 08/24/17 05:16 08/24/17 07:55 White Blood Count 13.10 K/uL (4.8-10.8) Red Blood Count 5.29 M/uL (4.7-6.1) Hemoglobin 15.3 g/dL (14.0-18.0) Hematocrit 44.9 % (42-52) Mean Corpuscular Volume 84.9 fL (80-100) Mean Corpuscular Hemoglobin 28.9 pg (25-34) Mean Corpuscular Hemoglobin Concent 34.1 g/dl (32-36) Platelet Count 221 K/uL (130-400) Mean Platelet Volume 9.6 fL (7.4-10.4) Neutrophils (%) (Auto) 59.9 % Lymphocytes (%) (Auto) 29.5 % Monocytes (%) (Auto) 7.7 % Eosinophils (%) (Auto) 1.8 % Basophils (%) (Auto) 0.2 % Neutrophils # (Auto) 7.83 K/uL (1.4-6.5) Lymphocytes # (Auto) 3.87 K/uL (1.2-3.4) Monocytes # (Auto) 1.01 K/uL (0.11-0.59) Eosinophils # (Auto) 0.24 K/uL (0-0.5) Basophils # (Auto) 0.03 K/uL (0-0.2) RDW Standard Deviation 44.1 fL (36.4-46.3) RDW Coefficient of Variation 14.2 % (11.5-14.5) Immature Granulocyte % (Auto) 0.9 % Immature Granulocyte # (Auto) 0.12 K/uL (0.00-0.02) Anion Gap 8.0 mmol/L (3-11) Est Creatinine Clear Calc Drug Dose 77.8 ml/min Estimated GFR () 89.9 Estimated GFR (Non- 77.6 BUN/Creatinine Ratio 16.2 (10-20) Estimated Average Glucose 128 mg/dl Hemoglobin A1c 6.1 % (4.5-5.6) Calcium Level 8.9 mg/dl (8.5-10.1) Triglycerides Level 208 mg/dl (0-150) Cholesterol Level 207 mg/dl (0-200) HDL Cholesterol 29 mg/dl LDL Cholesterol, Calculated 136 mg/dl VLDL Cholesterol, Calculated 42 mg/dl Cholesterol/HDL Ratio 7.1 Chemistry Specimen Hemolysis Activated Partial Thromboplast Time 43.4 SECONDS (21.0-31.0) Partial Thromboplastin Ratio 1.7 Impression TIA localizing to the left cerebral hemisphere and presenting with aphasia and a right hemiparesis that have resolved. Atrial fibrillation and noncompliance with Xarelto significant risk factors in this patient. 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 Furthermore, to some extent, the observed, chronic, white matter disease on MRI could be related to his history of chronic heavy alcohol use as well. He does not manifest any signs that would suggest delirium tremens or alcohol withdrawal at this time and reports that he has not consumed alcohol in 11 months which is corroborated by his daughter at bedside. Plan This patient will need to have his anticoagulant regimen adjusted. If Xarelto was causing excessive nosebleeds that it may be reasonable to consider switching to an alternative anticoagulant. Perhaps warfarin would be a reasonable option as the degree of anticoagulation can be monitored. There is no specific treatment for a chronically occluded or dissected vertebral artery. Again, in this patient's case, this finding is incidental and not related to his presenting symptoms. Either anticoagulation therapy or antiplatelet therapy are acceptable options. In his case, as he will need long- term anticoagulation for atrial fibrillation which would cover both conditions. He should have a follow-up CT angiogram, however, in 2-3 weeks to ensure stability. He should also be seen by a neurovascular stroke specialist either at [facility] or [facility] as an outpatient. Continue management of other cardiovascular risk factors including diabetes mellitus and hypertension as medically appropriate. PT/OT/speech therapy consultation I have no further immediate recommendations at this time. This patient may follow-up with me in clinic given the incidentally discovered occlusion of the right vertebral artery. Please contact me if I may be of further assistance.
[2017-08-24] MEDS ORDERED: HEPARIN IV BOLUS 3,000 UNIT in SYRINGE 0 ML IV STA (13:09)
--- NOTE | 2017-08-24 15:22 | Family Medicine Progress Note ---
Progress Note Date of Service Aug 24, 2017. Subjective Pt evaluation today including: conversation w/ patient, conversation w/ family , chart review, lab review Pt describes return of normal function; No longer having right sided weakness, lip lag and dysarthria Constitutional: No fever, No chills, No sweats Respiratory: No cough, No sputum, No wheezing, No shortness of breath Cardiovascular: No chest pain, No orthopnea, No PND Abdomen: No pain, No nausea, No vomiting, No diarrhea Neurologic: No weakness, No numbness/tingling Medications Current Inpatient Medications Medications (Trade) Dose Ordered Sig/Raudel Route Start Time Stop Time Status Last Admin Dose Admin Ioversol (Optiray 320) 100 ml UD PRN IV 08/23/17 23:00 08/27/17 22:59 Miscellaneous Information (Pharmacist Discharge Med Rec Consult) 1 ea UD PRN N/A 08/24/17 01:00 09/23/17 00:59 Sodium Chloride 1,000 ml @ 100 mls/hr Q10H IV 08/24/17 03:00 09/23/17 02:59 08/24/17 13:14 100 MLS/HR Ondansetron HCl (Zofran Inj) 4 mg Q6H PRN IV 08/24/17 01:00 09/23/17 00:59 Insulin Glargine (Lantus Solostar Pen) 8 units Q12 SC 08/24/17 09:00 09/23/17 08:59 08/24/17 09:33 8 UNITS Insulin Aspart (novoLOG ASPART) SLIDING SCALE If C... ACHS SC 08/24/17 07:00 09/23/17 06:59 08/24/17 12:58 6 UNITS Glucose (Glucose 40% Gel) 15-30 GRAMS 15 GRAMS... UD PRN PO 08/24/17 01:00 09/23/17 00:59 Glucose (Glucose Chew Tab) 4-8 Tablets 4 Tabl... UD PRN PO 08/24/17 01:00 09/23/17 00:59 Dextrose (Dextrose 50% 50ML Syringe) 25-50ML OF 50% DW IV FOR... UD PRN IV 08/24/17 01:00 09/23/17 00:59 Glucagon (Glucagon Inj) 1 mg UD PRN SQ 08/24/17 01:00 09/23/17 00:59 Metoprolol Tartrate (Lopressor Iv) 5 mg Q6 IV. 08/24/17 06:00 09/23/17 05:59 08/24/17 12:53 5 MG Ampicillin Sodium/ Sulbactam Sodium 1500 mg/Sodium Chloride 104 ml @ 200 mls/hr Q6H IV 08/24/17 02:00 08/31/17 01:59 08/24/17 14:14 200 MLS/HR Heparin Sodium/ Dextrose 500 ml @ 34 mls/hr [id number] PRN IV 08/24/17 02:00 09/23/17 01:59 Gadobutrol (Gadavist) 10 mmol UD PRN IV 08/24/17 02:35 08/28/17 02:34 Hydrocortisone Sodium Succinate 100 mg/Syringe 2 ml @ 4 mls/min Q8H IV 08/24/17 06:30 09/23/17 06:29 08/24/17 06:50 4 MLS/MIN Objective Vital Signs Date Time Temp Pulse Resp B/P (MAP) Pulse Ox O2 Delivery O2 Flow Rate FiO2 08/24/17 12:53 88 144/91 08/24/17 12:00 Room Air 08/24/17 10:55 36.4 82 20 144/91 (108) 92 Room Air 08/24/17 08:00 93 Room Air 08/24/17 07:44 36.5 69 20 136/92 (107) 90 Room Air 08/24/17 05:37 73 152/92 08/24/17 04:00 93 Room Air 08/24/17 02:58 36.8 78 20 164/102 (122) 93 Room Air 08/24/17 01:50 Room Air 08/24/17 01:12 77 08/24/17 00:51 77 18 92 08/24/17 00:46 154/90 08/24/17 00:32 167/95 08/24/17 00:21 87 24 91 08/24/17 00:16 165/90 08/24/17 00:01 151/92 08/23/17 23:51 76 24 94 08/23/17 23:46 162/90 08/23/17 23:30 148/82 08/23/17 23:21 73 18 93 08/23/17 23:16 72 18 128/92 93 08/23/17 23:13 130/85 08/23/17 22:46 170/113 08/23/17 22:42 68 26 94 08/23/17 22:31 161/102 08/23/17 22:15 153/97 08/23/17 22:12 79 16 94 08/23/17 22:07 134/96 08/23/17 22:06 71 20 134/96 94 Room Air 08/23/17 22:02 181/157 08/23/17 21:47 170/97 08/23/17 21:44 71 08/23/17 21:42 72 22 96 08/23/17 21:34 125/86 08/23/17 21:27 37.3 68 20 167/95 94 Room Air 08/23/17 21:27 94 Room Air 08/23/17 21:14 167/95 Physical Exam General Appearance: WD/WN, no apparent distress Eyes: normal inspection, PERRL, EOMI ENT: normal ENT inspection, hearing grossly normal, TMs normal, pharynx normal Neck: supple, no adenopathy, thyroid normal Respiratory/Chest: chest non-tender, lungs clear, normal breath sounds, no respiratory distress, no accessory muscle use Cardiovascular: regular rate, rhythm, no edema, no gallop, no JVD, no murmur Neurologic/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 Consulted by neurology--following recs; outpatient follow up, education regarding anticoagulation Additionally, pt needs to follow up with Neurology in [place] regarding right vertebral findings TIA - CT head negative, CTA - questionable right vertebral artery changes which would not explain his symptoms - MRI Brain--microvascular changes, no acute intracranial abnormalities - Echo ordered - Neuro consulted - Resumed normal diet Atrial fibrillation - hold xarelto and start heparin standard dose no bolus - Resume PO metoprolol Chronic Diastolic Congestive heart failure - I&Os - Resume PO Lasix Aspiration pneumonia/pneumonitis - cover for pneumonia with Unasyn - speech and language as above Interstitial lung disease - switch prednisone to IV hydrocortisone stress dose 100 mg Q6H RAUDEL, can be tapered as per response T2DM - Resume metoformin - ACHS/Q6H BSG - Lantus qam - Insulin Aspart sliding scale - likely insulin requirements to increase due to steroids - HbA1C in morning Dyslipidemia - continue atorvastatin - fasting lipid profile in morning History Resident Physician Supervision Note: I was present with Dr. Urbina during the history and exam. I discussed the case with the resident and agree with the findings and plan as documented in the note. Any exceptions or clarifications are listed here. 72 y/o male h/o AF, HTN, DMII admitted w/ TIA . Presently reports a return to his baseline without complaint of pain, palpitation or confusion. Voice has returned to baseline. AAOx3, NAD. CNII-XII grossly intact w/ mild unilateral facial droop on the right which is not evident on motor examination. TIA - secondary prevention as noted in management plan below. Abnormal vertebral artery finding - agree w/ outpatient evaluation including repeat CT angiogram at tertiary center AFib - not appropriately AC (taking EOD) - will trial coumadin w/ goal INR of 2 , continue metoprolol and telemetry monitoring CHF, chronic diastolic - monitor I/O, continue lasix IV DMII - continue lantus/ISS management while inpatient, can restart metformin at discharge ILD w/ concern for aspiration - continue unasyn, taper back to PO prednisone baseline dose in AM Hyperlipidemia - continue atorvastatin
[2017-08-24] MEDS: HEPARIN 25,000 UNIT/500ML D5W 500 ML IV PRN ×2 (17:32→20:37)
[2017-08-24] MEDS ORDERED: TEMAZEPAM 15 MG CAP PO PRN (19:15)
[2017-08-24 20:11] LABS: PARTIAL THROMBOPLASTIN RATIO 2.5
[2017-08-24] MEDS ORDERED: TRAZODONE HCL 100 MG TAB PO SCH (21:00)
[2017-08-24] MEDS ORDERED: CHOLESTYRAMINE LIGHT 4 GM PKT PO SCH (22:00)
[2017-08-25] MEDS: AMPICILLIN/SULBACTAM SOD INJ 1,500 MG in SODIUM CHLORIDE 0.9% 100ML 100 ML IV SCH ×3 (02:25→13:35)
[2017-08-25 04:15] VITALS: BP 126/82; PULSE 74; TEMP 36.5; O2SAT 93
[2017-08-25 05:17] LABS: BASO % 0.3 %; BASO ABS # 0.03 K/uL (0-0.2); COMPLETE YES; EOS % 1.1 %; HEMATOCRIT 40.3 % (42-52); IG% 0.6 %; LYMPH % 34.1 %; LYMPH ABS # 3.75 K/uL (1.2-3.4); MEAN CELL VOLUME 83.4 fL (80-100); MEAN CORPUSCULAR HGB CONC 34.7 g/dl (32-36); MEAN PLATELET VOLUME 9.4 fL (7.4-10.4); MONO % 8.4 %; NEUT % 55.5 %; PLATELET COUNT 172 K/uL (130-400); RED BLOOD COUNT 4.83 M/uL (4.7-6.1); WHITE BLOOD COUNT 11.01 K/uL (4.8-10.8)
[2017-08-25 05:40] LABS: BUN/CREATININE RATIO 16.7 (10-20); CALCIUM 8.9 mg/dl (8.5-10.1); CREATININE 0.8 mg/dl (0.60-1.40); POTASSIUM 3.4 mmol/L (3.5-5.1)
[2017-08-25] MEDS: HEPARIN 25,000 UNIT/500ML D5W 500 ML IV PRN ×2 (05:46→09:20)
--- NOTE | 2017-08-25 07:15 | Family Medicine Progress Note ---
Progress Note Date of Service Aug 25, 2017. Assessment and Plan 72 year old male presents with aspiration and sudden onset aphasia Pt appears to have had a TIA. Consulted by neurology--following recs; outpatient follow up, education regarding anticoagulation Additionally, pt needs to follow up with Neurology in [place] regarding right vertebral findings Resumed PO medications Pt is still on heparin drip-->will evaluate anticoagulation plan follow rounds ECHO--notable finding; severely dilated left atrium TIA - CT head negative, CTA - questionable right vertebral artery changes which would not explain his symptoms - MRI Brain--microvascular changes, no acute intracranial abnormalities - Echo ordered - Neuro consulted - Resumed normal diet Atrial fibrillation - hold xarelto continue iv heparin - Resume PO metoprolol Chronic Diastolic Congestive heart failure - I&Os - Resume PO Lasix Aspiration pneumonia/pneumonitis - cover for pneumonia with Unasyn, day 2 - speech and language as above Interstitial lung disease - switch prednisone to IV hydrocortisone stress dose 100 mg Q6H ARAM, can be tapered as per response T2DM - Resume metformin - ACHS/Q6H BSG - Lantus qam - Insulin Aspart sliding scale - likely insulin requirements to increase due to steroids - HbA1C in morning Dyslipidemia - continue atorvastatin - fasting lipid profile in morning Assessment/Plan Resident Physician Supervision Note: I was present with Dr. Urbina during the history and exam. I discussed the case with the resident and agree with the findings and plan as documented in the note. Any exceptions or clarifications are listed here. 72 y/o male h/o AF, HTN, DMII admitted w/ TIA. Per family, speech is now at baseline and patient is without complaint. On examination, patient is AAOx3, NAD. CNII-XII grossly intact w/ very faint unilateral facial droop on the right. CTAB. S1/S2 nl IRR/IRR, no MCG appreciated. Regarding his atrial fibrillation, the patient financially and practically prefers coumadin to DOAC therapy, and case management is aware to help with logistic organization for same. Regarding potential aspiration episode, repeat CXR shows only mild bibasilar atelectasis and clinically without signs of PNA, so will d/c abx therapy and monitor as outpatient. TIA - secondary prevention as noted in management plan below. Abnormal vertebral artery finding - agree w/ outpatient evaluation including repeat CT angiogram at tertiary center CHF, chronic diastolic - monitor I/O, continue lasix IV and resume PO on discharge DMII - restart metformin at discharge Hyperlipidemia - continue atorvastatin
[2017-08-25 07:55] VITALS: BP 143/98; PULSE 82; TEMP 36.9; O2SAT 89
[2017-08-25] MEDS: INSULIN ASPART 100 UNITS/ML 3 ML PEN SC SCH ×3 (08:28→17:36)
[2017-08-25] MEDS ORDERED: ASPIRIN 81 MG ECTAB PO SCH (09:00)
[2017-08-25] MEDS ORDERED: CHOLECALCIFEROL 1000 INTER.UNIT TAB PO SCH (09:00)
[2017-08-25] MEDS ORDERED: MULTIVITAMIN TAB PO SCH (09:00)
[2017-08-25] MEDS ORDERED: ATORVASTATIN 40 MG TAB PO SCH (09:00)
[2017-08-25] MEDS ORDERED: FUROSEMIDE 40 MG TAB PO SCH (09:00)
[2017-08-25] MEDS ORDERED: METOPROLOL SUCC 50MG EXT REL TAB PO SCH (09:00)
[2017-08-25] MEDS ORDERED: POTASSIUM CHLORIDE 20 MEQ TABCR PO SCH (09:00)
[2017-08-25] MEDS ORDERED: METFORMIN HCL 500 MG TAB PO SCH (09:00)
[2017-08-25] MEDS ORDERED: INSULIN GLARGINE SOLOSTAR 100 UNITS/ML 3 ML PEN SC SCH (09:00)
[2017-08-25] MEDS ORDERED: DOXAZosin MESYLATE TAB 2 MG TAB PO SCH (09:00)
[2017-08-25 10:29] VITALS: BP 143/71; PULSE 79; O2SAT 93
--- NOTE | 2017-08-25 11:39 | DIAGNOSTIC IMAGING REPORT ---
CHEST 2 VIEWS ROUTINE HISTORY: 72 years-old Male possible aspirate pna acute aspiration pneumonitis COMPARISON: Chest radiograph 08/23/2017 TECHNIQUE: 2 views of the chest FINDINGS: Cardiac silhouette is moderately enlarged, unchanged. Mild pulmonary vascular congestion is noted with improvement of the previously noted mild pulmonary edema. Atherosclerosis of the aorta. There is no pneumothorax. Trace bilateral pleural effusions are noted with subsegmental bibasilar opacities. Bones are grossly intact. Postoperative changes of the left humeral head. Multilevel degenerative changes of the spine with background osteopenia. IMPRESSION: 1. Cardiomegaly with improvement of the previously noted mild pulmonary edema. 2. Trace pleural effusions with subsegmental bibasilar opacities suggesting atelectasis. The above report was generated using voice recognition software. It may contain grammatical, syntax or spelling errors. Electronically signed by: Reji Benz M.D. 08/25/2017 11:37 AM Dictated Date/Time: 08/25/2017 11:32 AM
[2017-08-25 12:18] VITALS: BP 111/71; PULSE 81; TEMP 36.5; O2SAT 90
[2017-08-25] MEDS ORDERED: WARF5TAB7 PO (14:36)
[2017-08-25] MEDS ORDERED: ENOX120I SQ (14:36)
--- NOTE | 2017-08-25 14:46 | Discharge Instructions ---
Discharge Instructions Date of Service Aug 25, 2017. Admission Reason for Admission: Aphasia,Stroke Discharge Discharge Diagnosis / Problem: TIA Discharge Goals Goal(s): Improve function, Improve disease control, Learn about illness Activity Recommendations Activity Limitations: resume your previous activity . Instructions / Follow-Up Instructions / Follow-Up Mr. Anderson, benjamin came to the hospital with stroke-like symptoms. It appears that you may have had a mini-stroke called a TIA (transient ischemic attack). You are a high risk for stroke because of your other illnesses, Afib, diabetes and hyperlipidemia. We want to be sure that you are controlling these disease well with medications. As we discovered, you have not been taking Xeralto because of the taylor. We have an alternative medicine for you to take, called Warfarin. It's a blood thinner. It is a very important medicine to take regularly as prescribed because it lowers your risk for stroke. In order to be sure that the medicine is working, you need to do blood test and to follow up with your primary care doctor. I addition, before the medicine takes its full effect, you must get injections of another medicine called, Lovenox. With that said, please follow the regimen below; Lovenox injection 100mg, twice daily for 5 days. Warfarin 5mg daily At the end of the week, you will meet with your primary care doctor and they will do a blood test that determines your dose of Warfarin moving forward. Risk Factors for Stroke: You can reduce your chances of stroke by working with your medical provider to adopt a healthy lifestyle. Some specific ways to lower your chance of stroke are: * If you are a smoker, now is the time to stop smoking cigarettes * If you are diabetic, improve the control of your blood sugars * Avoid excessive amounts of alcohol * Control high blood pressure * Lose weight if you are overweight * Be sure to lead an active lifestyle * Eat a healthy diet low in salt, cholesterol and fat You should know about other risk factors for stroke that you are unable to control. These include: * Age 55 years or older * Male gender * Certain racial groups: , or / * Family History of Stroke, Mini stroke or Heart Attack * Sickle Cell Disease Follow Up: It is important for you to keep your follow up appointments with your medical provider. Current Hospital Diet Patient's current hospital diet: AHA Diet (Heart Healthy), Diabetes Type 2 Diet Discharge Diet Recommended Diet: AHA Diet (Heart Healthy) Pending Studies Studies pending at discharge: no Laboratory Results Hemoglobin A1c Test 08/24/17 05:16 Range/Units Estimated Average Glucose 128 mg/dl Hemoglobin A1c 6.1 H 4.5-5.6 % Lipid Panel Test 08/24/17 05:16 Range/Units Triglycerides Level 208 H 0-150 mg/dl Cholesterol Level 207 H 0-200 mg/dl HDL Cholesterol 29 mg/dl Cholesterol/HDL Ratio 7.1 LDL Cholesterol, Calculated 136 mg/dl Medical Emergencies . Who to Call and When: Medical Emergencies: Call 911 immediately if you experience any of the following warning signs and symptoms of Stroke: * Sudden numbness or weakness of the face, arm or leg, especially on one side of the body * Sudden confusion, trouble speaking or understanding * Sudden trouble seeing in one or both eyes * Sudden trouble walking, dizziness, loss of balance or coordination * Sudden severe headache with no cause Do not delay calling 911 if you experience any warning signs or symptoms of a stroke. Delay in seeking medical attention may affect what treatments can be given to you. . Non-Emergent Contact Non-Emergency issues call your: Primary Care Provider . . "Provider Documentation" section prepared by Yvon Urbina. . Stroke Core Measures Reason no t-PA for Stroke: Treatment not indicated Reason no antithrom by day 2: Treatment not indicated Reason no antithrom at D/C: Treatment not indicated Reason no statin at D/C: Treatment provided - N/A Reason no anticoag w/a fib: Treatment provided - N/A VTE Core Measure Inpt VTE Proph given/why not?: Other Anticoagulation (heparin IV)
--- NOTE | 2017-08-25 14:52 | Medical Student: [facility] ---
Med Student Progress Note Date of Service Aug 25, 2017. Subjective Pt evaluation today including: conversation w/ patient, conversation w/ family , physical exam, chart review, lab review, review of studies Voiding: no voiding problems James is a 72-year-old male with a past medical history of atrial fibrillation , hypertension, hyperlipidemia, and diabetes who presented to the emergency department on 08/24/17 after sudden onset of dysphagia, expressive aphasia, and a right-sided facial droop at approximately 2000 that evening. He was drinking coffee and suddenly was unable to swallow. He denies choking on his coffee. The expressive aphasia and facial droop developed shortly thereafter and he was brought to the ED, where he was not a tPA candidate due to history of anticoagulation with Xarelto. James reportedly takes Xarelto po every other day vs. daily due to excessive nosebleeds and cost. On hospitalization day 2, James is reportedly back to baseline according to daughter. He reports eating well and going to the bathroom without any problems. He has no symptoms of an expressive aphasia or facial droop. He denies any epistaxis. Review of Systems Constitutional: No fever, No chills, No sweats, No weakness Eyes: No problem reported ENT: No problem reported Respiratory: No shortness of breath, No problem reported Cardiac: + palpitations, No chest pain Abdomen: No nausea, No vomiting, No diarrhea, No constipation Musculoskeletal: No calf pain Male : No problem reported Neurologic: + see HPI, No weakness, No numbness/tingling Objective Vital Signs Date Time Temp Pulse Resp B/P (MAP) Pulse Ox O2 Delivery O2 Flow Rate FiO2 08/25/17 12:18 36.5 81 20 111/71 (84) 90 Room Air 08/25/17 12:00 Room Air 08/25/17 10:29 79 93 08/25/17 08:00 Room Air 08/25/17 07:55 36.9 82 20 143/98 (113) 89 Room Air 08/25/17 04:19 Room Air 08/25/17 04:15 36.5 74 18 126/82 (97) 93 Nasal Cannula 2.0 08/25/17 00:00 Room Air 08/24/17 23:59 70 08/24/17 23:45 36.4 67 20 146/87 (106) 96 Nasal Cannula 2.0 08/24/17 20:12 Room Air 08/24/17 20:00 36.8 76 20 160/92 (114) 93 Room Air 08/24/17 17:43 72 133/89 08/24/17 16:07 Room Air 08/24/17 16:00 Room Air 08/24/17 15:57 36.8 72 20 133/89 (104) 92 Room Air Physical Exam General Appearance: WD/WN, no apparent distress Eyes: bilateral eyes normal inspection, bilateral eyes PERRL, bilateral eyes EOMI Neck: supple, no adenopathy, no carotid bruits Respiratory/Chest: lungs clear, normal breath sounds Cardiovascular: + irregularly irregular (atrial fibrillation) Abdomen: normal bowel sounds, non tender, soft 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, no motor/sensory deficits, alert, normal mood/affect, oriented x 3, + pertinent finding (dysarthria present ) Skin: normal color, warm/dry Laboratory Results Last 24 Hours Test 08/24/17 16:11 08/24/17 19:36 08/24/17 20:28 08/25/17 05:04 Bedside Glucose 100 mg/dl 151 mg/dl Activated Partial Thromboplast Time 64.8 SECONDS 53.2 SECONDS Partial Thromboplastin Ratio 2.5 2.0 White Blood Count 11.01 K/uL Red Blood Count 4.83 M/uL Hemoglobin 14.0 g/dL Hematocrit 40.3 % Mean Corpuscular Volume 83.4 fL Mean Corpuscular Hemoglobin 29.0 pg Mean Corpuscular Hemoglobin Concent 34.7 g/dl Platelet Count 172 K/uL Mean Platelet Volume 9.4 fL Neutrophils (%) (Auto) 55.5 % Lymphocytes (%) (Auto) 34.1 % Monocytes (%) (Auto) 8.4 % Eosinophils (%) (Auto) 1.1 % Basophils (%) (Auto) 0.3 % Neutrophils # (Auto) 6.12 K/uL Lymphocytes # (Auto) 3.75 K/uL Monocytes # (Auto) 0.92 K/uL Eosinophils # (Auto) 0.12 K/uL Basophils # (Auto) 0.03 K/uL RDW Standard Deviation 43.2 fL RDW Coefficient of Variation 14.2 % Immature Granulocyte % (Auto) 0.6 % Immature Granulocyte # (Auto) 0.07 K/uL Sodium Level 141 mmol/L Potassium Level 3.4 mmol/L Chloride Level 109 mmol/L Carbon Dioxide Level 25 mmol/L Anion Gap 7.0 mmol/L Blood Urea Nitrogen 13 mg/dl Creatinine 0.80 mg/dl Est Creatinine Clear Calc Drug Dose 93.4 ml/min Estimated GFR () 102.0 Estimated GFR (Non- 88.0 BUN/Creatinine Ratio 16.7 Random Glucose 102 mg/dl Calcium Level 8.9 mg/dl Magnesium Level 2.1 mg/dl Medications Current Inpatient Medications Medications (Trade) Dose Ordered Sig/Raudel Route Start Time Stop Time Status Last Admin Dose Admin Ioversol (Optiray 320) 100 ml UD PRN IV 08/23/17 23:00 08/27/17 22:59 Miscellaneous Information (Pharmacist Discharge Med Rec Consult) 1 ea UD PRN N/A 08/24/17 01:00 09/23/17 00:59 Ondansetron HCl (Zofran Inj) 4 mg Q6H PRN IV 08/24/17 01:00 09/23/17 00:59 Insulin Aspart (novoLOG ASPART) SLIDING SCALE If C... ACHS SC 08/24/17 07:00 09/23/17 06:59 08/25/17 12:33 2 UNITS Glucose (Glucose 40% Gel) 15-30 GRAMS 15 GRAMS... UD PRN PO 08/24/17 01:00 09/23/17 00:59 Glucose (Glucose Chew Tab) 4-8 Tablets 4 Tabl... UD PRN PO 08/24/17 01:00 09/23/17 00:59 Dextrose (Dextrose 50% 50ML Syringe) 25-50ML OF 50% DW IV FOR... UD PRN IV 08/24/17 01:00 09/23/17 00:59 Glucagon (Glucagon Inj) 1 mg UD PRN SQ 08/24/17 01:00 09/23/17 00:59 Ampicillin Sodium/ Sulbactam Sodium 1500 mg/Sodium Chloride 104 ml @ 200 mls/hr Q6H IV 08/24/17 02:00 08/31/17 01:59 08/25/17 13:35 200 MLS/HR Heparin Sodium/ Dextrose 500 ml @ 34 mls/hr [id number] PRN IV 08/24/17 02:00 09/23/17 01:59 08/25/17 09:20 34 MLS/HR Gadobutrol (Gadavist) 10 mmol UD PRN IV 08/24/17 02:35 08/28/17 02:34 Atorvastatin Calcium (Lipitor Tab) 40 mg QAM PO 08/25/17 09:00 09/24/17 08:59 08/25/17 08:19 40 MG Doxazosin Mesylate (Cardura Tab) 2 mg QAM PO 08/25/17 09:00 09/24/17 08:59 08/25/17 08:20 2 MG Furosemide (Lasix Tab) 40 mg DAILY PO 08/25/17 09:00 09/24/17 08:59 08/25/17 08:22 40 MG Metformin HCl (Glucophage Tab) 500 mg QAM PO 08/25/17 09:00 09/24/17 08:59 08/25/17 08:21 500 MG Metoprolol Succinate (Toprol Xl Tab) 50 mg QAM PO 08/25/17 09:00 09/24/17 08:59 08/25/17 08:22 50 MG Multivitamins (Multivitamin Tab) 1 tab QAM PO 08/25/17 09:00 09/24/17 08:59 08/25/17 08:21 1 TAB Prednisone (PredniSONE TAB) 7.5 mg DAILY PO 08/25/17 09:00 09/24/17 08:59 08/25/17 08:22 7.5 MG Temazepam (Restoril Cap) 15 mg HS PRN PO 08/24/17 19:15 09/23/17 19:14 Trazodone HCl (Desyrel Tab) 100 mg QPM PO 08/24/17 21:00 09/23/17 20:59 08/24/17 20:50 100 MG Cholecalciferol (Vitamin D Tab) 2,000 inter.unit QAM PO 08/25/17 09:00 09/24/17 08:59 08/25/17 08:23 2,000 INTER.UNIT Cholestyramine Resin (Questran Powder Light) 4 gm DAILY@2200 PO 08/24/17 22:00 09/23/17 21:59 08/24/17 22:01 4 GM Insulin Glargine (Lantus Solostar Pen) 8 units DAILY SC 08/25/17 09:00 09/23/17 08:59 08/25/17 08:28 8 UNITS Aspirin (Ecotrin Tab) 81 mg QAM PO 08/25/17 09:00 09/24/17 08:59 08/25/17 08:21 81 MG Potassium Chloride (Klor-Con Tab) 40 meq QAM PO 08/25/17 09:00 09/24/17 08:59 08/25/17 08:52 40 MEQ Assessment and Plan Assessment and Plan: James is a 72-year-old male with a history of AF, HTN, HLD, and DM who presented to the ED two days ago for stroke-like symptoms including dysphagia, expressive aphasia, and facial droop. Symptoms have progressively improved and resolved. He is on Xarelto at home, which was prescribed as once daily but took it every other day, primarily due to cost. 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 Aim for target INR = 2.0. -Bridge with Lovenox 100 mg subcutaneous as a bridge to warfarin for five days. -Continue with metoprolol for rate control 3) HTN -continue metoprolol 50 mg qAM -monitor blood pressures at home 4) Hyperlipidemia -Continue atorvastatin 40 mg qAM 5) DM -restart metformin at home -place on Lantus 8 mg subcutaneous in the evening Discharge planning: home
[2017-08-25] MEDS ORDERED: WARFARIN SOD 5 MG TAB PO ONE (15:00)
[2017-08-25 16:00] VITALS: BP 128/83; PULSE 74; TEMP 36.6; O2SAT 94
[2017-08-25] MEDS ORDERED: LOVENOX TEACHING KIT ONE (16:45)
[2017-08-25 17:42] VITALS: BP 128/83; PULSE 74; TEMP 36.6; O2SAT 94
[2017-08-25] MEDS ORDERED: NURSING VERBAL MED ORDER ONE (17:45)
--- NOTE | 2017-08-25 17:48 | Pharmacy Progress Note ---
Pharmacist Stroke Counseling Date of Service Aug 25, 2017. Scope Pharmacy has been consulted to provide medication discharge counseling for this patient admitted with ischemic stroke/hemorrhagic stroke/ transient ischemic attack as per the Pharmacist Discharge Counseling for Stroke Patients Protocol. Medications on Discharge Medications Dose Route/Sig Max Daily Dose Days Date Category Dose Instructions Jantoven (Warfarin Sodium) 5 Mg Tab 5 Mg PO DAILY 30 08/25/17 Rx Lovenox (Enoxaparin Sodium) 120 Mg/0.8 Ml Inj 100 Mg SQ Q12H 5 08/25/17 Rx Trazodone (Trazodone HCl) 50 Mg Tab 100 Mg PO 08/23/17 Reported Restoril (Temazepam) 15 Mg Cap 15 Mg PO HS PRN 08/23/17 Reported Prednisone 5 Mg Tab 7.5 Mg PO DAILY 08/23/17 Reported 1 & 1/2 tablet dose Oxygen Gas 4 Liters NA UD 08/23/17 Reported Lantus Solostar (Insulin Glargine) 100 Unit/Ml Inj 8 Units SC QPM 08/23/17 Reported Furosemide 20 Mg Tab 40 Mg PO DAILY 08/23/17 Reported skip if weight is under 227 Glucophage (Metformin Hcl) 500 Mg Tab 500 Mg PO BID WITH MEALS 11/17/16 Rx Vitamin E 400 Iu (Vitamin E) 400 Unit Cap 400 Inter.unit PO QAM 11/07/16 Reported Cholestyramine 4 Gm Pow 4 Gm PO QPM 11/07/16 Reported MIX WITH 2-6 OUNCES OF NON CARBONATED BEVERAGE AND DRINK DAILY DIRECTED Krill Oil 1 Cap Cap 1 Cap PO QAM 11/07/16 Reported Lipitor (Atorvastatin Calcium) 40 Mg Tab 40 Mg PO QAM 11/07/16 Reported Doxazosin Mesylate 2 Mg Tab 2 Mg PO QAM 11/07/16 Reported Metoprolol Succinate ER (Metoprolol Succinate) 50 Mg Tabcr 50 Mg PO QAM 11/07/16 Reported Vitamin D (Cholecalciferol) 2,000 Unit Tab 2,000 Inter.unit PO QAM 07/10/15 Reported Vitamin C (Ascorbic Acid) 1,000 Mg Tab 1,000 Mg PO QAM 07/10/15 Reported Vitamin A 8,000 Unit Cap 8,000 Inter.unit PO QAM 07/10/15 Reported Multivitamin (Multiple Vitamin) 1 Tab Tab 1 Tab PO QAM 07/10/15 Reported Action The above medications, specifically ones for stroke treatment/prophylaxis, have been reviewed in detail with the patient and/or patient circulation representative(s) prior to discharge. This includes indication, common adverse reactions, drug interactions, and medication administration. Medication counseling has been employed using the teach-back method to ensure understanding. Outcome The patient and/or patient circulation representative(s) have demonstrated understanding of the medications. The patient was somewhat familiar with warfarin due to his taking this medication. I explained the action of both lovenox and warfarin and the need to overlap the two medications until warfarin therapy is at goal. Provided the patient with a warfarin handout. Please note, they are aware that the pharmacist will call them within 72 hours post-discharge to confirm that the appropriate medications are being taken and answer any further medication related questions the patient might have at that time. Contact information Individual to be contacted: patient or Phone number: [phone] Best time to call: after 2 pm Thank you for allowing pharmacy to be involved in the care of this patient. Please call [phone] with any additional questions
[2017-08-25] MEDS ORDERED: ENOXAPARIN 100 MG/1ML SYR SQ ONE (18:00)
[2017-08-25] MEDS ORDERED: ASPEC81 PO (18:27)
--- NOTE | 2017-08-25 22:08 | Discharge Summary ---
Discharge Summary Date of Service Aug 25, 2017. (Yvon Urbina M.D.) Discharge Summary Admission Date: Aug 24, 2017 at 01:00 Discharge Date: Aug 25, 2017 Discharge Disposition: Home Principal Diagnosis: TIA (Yvon Urbina M.D.) Medication Reconciliation New Medications: Enoxaparin (Lovenox) 120 Mg/0.8 Ml Inj 100 MG SQ Q12H for 5 Days, #10 SYR Warfarin Sod (Jantoven) 5 Mg Tab 5 MG PO DAILY for 30 Days, #30 TAB Aspirin (Aspirin EC Low Dose) 81 Mg Ectab 81 MG PO QAM for 30 Days, #30 TAB Continued Medications: Ascorbic Acid (Vitamin C) 1,000 Mg Tab 1000 MG PO QAM Atorvastatin (Lipitor) 40 Mg Tab 40 MG PO QAM Cholecalciferol (Vitamin D) 2,000 Unit Tab 2000 INTER.UNIT PO QAM Cholestyramine (Cholestyramine) 4 Gm Pow 4 GM PO QPM MIX WITH 2-6 OUNCES OF NON CARBONATED BEVERAGE AND DRINK DAILY DIRECTED Doxazosin Mesylate (Doxazosin Mesylate) 2 Mg Tab 2 MG PO QAM Furosemide (Furosemide) 20 Mg Tab 40 MG PO DAILY skip if weight is under 227 Home O2 Therapy (Oxygen) Gas 4 LITERS NA UD, BTL Insulin Glargine (Lantus Solostar) 100 Unit/Ml Inj 8 UNITS SC QPM, PEN Krill Oil (Krill Oil) 1 Cap Cap 1 CAP PO QAM Metformin Hcl (Glucophage) 500 Mg Tab 500 MG PO bid with meals, #60 TAB 2 Refills Metoprolol Succinate (Metoprolol Succinate ER) 50 Mg Tabcr 50 MG PO QAM Multiple Vitamin (Multivitamin) 1 Tab Tab 1 TAB PO QAM, TAB Prednisone (Prednisone) 5 Mg Tab 7.5 MG PO DAILY 1 & 1/2 tablet dose Temazepam (Restoril) 15 Mg Cap 15 MG PO HS PRN for Sleep, CAP Trazodone Hcl (Trazodone) 50 Mg Tab 100 MG PO, TAB Vitamin A (Vitamin A) 8,000 Unit Cap 8000 INTER.UNIT PO QAM Vitamin E (Vitamin E 400 Iu) 400 Unit Cap 400 INTER.UNIT PO QAM, CAP Discontinued Medications: Rivaroxaban (Xarelto) 20 Mg Tab 20 MG PO daily with dinner, #30 TAB 5 Refills Discharge Exam Review of Systems: Constitutional: No fever, No chills, No sweats Respiratory: No cough, No sputum, No wheezing, No shortness of breath Cardiovascular: No chest pain, No orthopnea, No edema Abdomen: No pain, No nausea, No vomiting, No diarrhea Physical Exam: General Appearance: WD/WN, no apparent distress Respiratory/Chest: chest non-tender, lungs clear, normal breath sounds, no respiratory distress, no accessory muscle use Cardiovascular: regular rate, rhythm, no edema, no gallop, no murmur Abdomen / GI: normal bowel sounds, non tender, soft, no organomegaly, no pulsatile mass 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 Anderson came to [facility] with stroke-like symptoms; dysarthria, right sided weakness and right lip droop In the morning of admission patients symptoms have resolved. It appeared that he experienced a TIA. Patient has a PMHx of Afib anticoagulated with Xeralto. Pt reports poor compliance on Xeralto because of high cost of the medication Through shared decision making, the patient decided to change anticoagulation therapy to Warfarin. Pt was discharged on 5 mg dose of Warfarin and 100mg dose of Lovenox was initiated to bridge therapy. Pt is instructed to follow up with PCP to determine INR and therapeutic dosing going forward. The patient was not shown to have acute intracranial pathology, but was seen to have signs of chronic ischemic changes. Pt also was seen to have narrowing of his vertebral artery. Vertebral of findings need to be followed up in the outpatient as to rule out dissection. Repeat CT is recommended. At admission, patient was also started on IV antibiotic (due to risk of aspiration PNA) which was DC'ed at discharge after a CXR did not show any acute findings suggesting PNA. No indication for PO abx at this time. Total Time Spent: Less than 30 minutes This includes examination of the patient, discharge planning, medication reconciliation, and communication with other providers. (Yvon Urbina M.D.) Discharge Instructions Please refer to the electronic Patient Visit Report (Discharge Instructions) for additional information. (Yvon Urbina M.D.) Additional Copies To Chanelle Gomez C.R.N.P. Assessment/Plan Resident Physician Supervision Note: I was present with Dr. Urbina during the history and exam. I discussed the case with the resident and agree with the findings and plan as documented in the note. Any exceptions or clarifications are listed here. 72 y/o male h/o AF, HTN, DMII admitted w/ TIA. Per family, speech is now at baseline and patient is without complaint. On examination, patient is AAOx3, NAD. CNII-XII grossly intact w/ very faint unilateral facial droop on the right. CTAB. S1/S2 nl IRR/IRR, no MCG appreciated. Regarding his atrial fibrillation, the patient financially and practically prefers coumadin to DOAC therapy w/ lovenox bridge. Regarding potential aspiration episode, repeat CXR shows only mild bibasilar atelectasis and clinically without signs of PNA, so will d/c abx therapy and monitor as outpatient. TIA - secondary prevention as noted in management plan below. Abnormal vertebral artery finding - agree w/ outpatient evaluation including repeat CT angiogram at tertiary center CHF, chronic diastolic - monitor I/O, continue lasix IV and resume PO on discharge DMII - restart metformin at discharge Hyperlipidemia - continue atorvastatin (Jared Story MD)
--- NOTE | 2017-08-28 15:52 | Pharmacy Progress Note ---
Pharmacist Post D/C Phone Note Date of phone call: Aug 28, 2017. Individual with whom pharmacist spoke to: [Patient] The following questions were reviewed during the phone call with responses listed below each: Can you tell me the medications that you are currently taking as well as when and how you take each medication? - Patient reports that he is taking the enoxaparin twice a day in the abdomen and has not had any problems with the injections site- today is day #3. He reports he has been taking his warfarin daily as instructed. Patient started taking his ASA again today- he thought he was supposed to stopped but had this clarified with his family physician. Quickly reviewed his medication list it is up to date and patient knew correct doses. Did report that he takes calcium 400 mg daily that is not listed. When have you missed any doses of your medications? - Patient reports that he has not missed any doses of medications What side effects are you having from your medications? - Patient says that he has not experienced any side effects from his medications What questions do you have about your medications? - Patient reports that questions about his medications had been previously answered and that he did not have any more questions What problems are you having obtaining your medications? - Patient reports no problems When is your next appointment with your primary care doctor? - Patient is scheduled for August 31 Additional comments: - Patient was very pleasant and reports that he is doing well. As per the Pharmacist Discharge Counseling for Stroke Patients Protocol, this phone call has been completed within 72 hours of discharge. Thank you for allowing us to be involved in the care of this patient.
[2017-09-15] MEDS ORDERED: GLC/500 PO (11:19)
[2017-09-28] MEDS ORDERED: WARF5TAB7 PO (14:58)
== END 2017-08-25 18:33 | disposition home health service (06) | DRG 69 ==
LOC: EDBD 21:12 → C.EDA 21:16 → C.2T 08-24 01:00 → EDBEDREQ 08-24 01:04 → ENRESERV 08-24 01:11
PROVIDERS: ADMIT Hospitalist; ATTEND Family Medicine
DX: G45.9 Transient cerebral ischemic attack, unspecified (principal); J69.0 Pneumonitis due to inhalation of food and vomit; I50.32 Chronic diastolic (congestive) heart failure; I11.0 Hypertensive heart disease with heart failure; F10.20 Alcohol dependence, uncomplicated; E11.9 Type 2 diabetes mellitus without complications; I48.91 Unspecified atrial fibrillation; I25.2 Old myocardial infarction; Z87.891 Personal history of nicotine dependence; Z99.81 Dependence on supplemental oxygen; Z80.9 Family history of malignant neoplasm, unspecified; Z83.3 Family history of diabetes mellitus

== ENCOUNTER → 2017-09-08 | Outpatient (CLI) | payer BC ==
[~2017-09-08] MED LIST changes: +ASPEC81 PO; -ASPI-461 PO; -INSU-698 SC; +LSX20 PO; +OXGN; -PRD20 PO; +PRED-301 PO; -PRT40 PO; +TEMA15CA4 PO; +TRAZ50TA35 PO; +WARF5TAB7 PO; -XRL20 PO
== END | disposition home or self-care (01) ==
LOC: C.LABBFT 14:58
PROVIDERS: ATTEND Nurse Practitioner
DX: N40.0 Benign prostatic hyperplasia without lower urinary tract symptoms (principal)

== ENCOUNTER → 2017-09-14 | Outpatient (CLI) | payer BC ==
[2017-09-14 17:49] LABS: BLOOD UREA NITROGEN 11 mg/dl (7-18); CREATININE 0.92 mg/dl (0.60-1.40)
== END | disposition home or self-care (01) ==
LOC: C.LABBFT 15:09
PROVIDERS: ATTEND Physician Assistant Medical
DX: E11.9 Type 2 diabetes mellitus without complications (principal)

== ENCOUNTER → 2017-12-25 | Outpatient (CLI) | payer BC ==
[~2017-12-25] MED LIST changes: +WARF-246 PO
[2017-12-25 16:48] LABS: ALBUMIN 3.5 gm/dl (3.4-5.0); ALT/SGPT 22 U/L (12-78); BLOOD UREA NITROGEN 23 mg/dl (7-18); CALCIUM 9.2 mg/dl (8.5-10.1); CARBON DIOXIDE 26 mmol/L (21-32); CHOLESTEROL 129 mg/dl (0-200); CREATININE 1.11 mg/dl (0.60-1.40); GLUCOSE 123 mg/dl (70-99); POTASSIUM 4.2 mmol/L (3.5-5.1); SODIUM 137 mmol/L (136-145)
[2017-12-25 16:52] LABS: ALKALINE PHOSPHATASE 62 U/L (45-117); AST/SGOT 12 U/L (15-37); LDL CHOLESTEROL CALCULATED 54 mg/dl; TOTAL PROTEIN 7.8 gm/dl (6.4-8.2)
[2017-12-26 07:51] LABS: HEMOGLOBIN A1C 6.1 % (4.5-5.6)
== END | disposition home or self-care (01) ==
LOC: C.LABBFT 14:24
PROVIDERS: ATTEND Nurse Practitioner
DX: I25.10 Atherosclerotic heart disease of native coronary artery without angina pectoris (principal); E11.9 Type 2 diabetes mellitus without complications

== ENCOUNTER → 2018-02-23 | Outpatient (CLI) | payer BC ==
[~2018-02-23] MED LIST changes: -ASPEC81 PO; +ASPI-320 PO
== END | disposition home or self-care (01) ==
LOC: C.PATHSPEC 17:58
PROVIDERS: ATTEND Plastic Surgery
DX: C44.310 Basal cell carcinoma of skin of unspecified parts of face (principal)

== ENCOUNTER → 2018-03-05 | Outpatient (CLI) | payer BC | END | disposition home or self-care (01) | LOC: C.PATHSPEC 11:30 | PROVIDERS: ATTEND Plastic Surgery | DX: L98.9 Disorder of the skin and subcutaneous tissue, unspecified (principal) ==